=== PATIENT | female | born 1960 | race Caucasian/White ===

== ENCOUNTER 2018-03-05 12:06 | Inpatient (IN) | payer OTHER ==
[2018-03-05 13:37] LABS: Protime INR 1.35
[2018-03-05 13:46] LABS: Absolute Lymphocytes (CBC) 0.6 K/uL (0.7-4.9); Absolute Monocytes 0.4 K/uL (0.1-1.3); Absolute Neutrophil 10.4 K/uL (1.8-8.0); Basophils % 0.3 % (0-1.3); Eosinophils % 0.3 % (0-4.4); Lymphocytes % 4.8 % (15.3-44.8); MCH 29.7 pg (27.0-35.0); MCV 87.6 fL (80-100); MPV 8.4 fL (7.6-11.3); Monocytes % 3.9 % (3.3-12.3); RBC Red Blood Cell Count 4.33 M/uL (3.86-4.86)
[2018-03-05] MEDS ORDERED: ONDANSETRON 4 MG/2 ML VIAL IV PRN (13:48)
[2018-03-05] MEDS ORDERED: ALBUTEROL 2.5 MG/3 ML NEB SOL NEB PRN (13:48)
[2018-03-05] MEDS ORDERED: DIPHENHYDRAMINE 25 MG TAB/CAP PO PRN (13:48)
[2018-03-05] MEDS ORDERED: POLYETHYL GLY 3350 17 GM/DOSE PO PRN (13:49)
[2018-03-05] MEDS ORDERED: ONDANSETRON 4 MG (ODT) TAB PO PRN (13:49)
[2018-03-05] MEDS ORDERED: LOPERAMIDE HCL 2 MG CAPSULE PO PRN (13:51)
[2018-03-05 14:22] LABS: Albumin 4.1 g/dL (3.4-5.0); Bilirubin Direct 0.2 mg/dL (0-0.2); Bilirubin Total 0.7 mg/dL (0.2-1.0); Magnesium 1.8 mg/dL (1.8-2.4); Phosphorus 1.5 mg/dL (2.5-4.9); Potassium 3.8 mmol/L (3.5-5.1)
[2018-03-05 14:31] LABS: Thyroid Stimulating Hormone 6.61 uIU/mL (0.36-3.74)
--- NOTE | 2018-03-05 15:40 | RAD REPORT ---
EXAM DESCRIPTION: CT - Angio Aorta For Dissection - 03/05/2018 3:15 pm CLINICAL HISTORY: Chest pain, weakness, abdominal pain COMPARISON: CT chest PE study April 2014, lumbar spine December 2013. TECHNIQUE: Dynamically enhanced 3 mm thick images of the chest, abdomen, and upper pelvis were obtai ricky during administration of approximately 150mL Isovue 370 IV contrast. Sagittal and coronal reconst ruction images were generated using MIP and reviewed. Exam utilizes a protocol to evaluate entire cou rse of the aorta. All CT scans are performed using dose optimization technique as appropriate and may include automated exposure control or mA/KV adjustment according to patient size. FINDINGS: Aorta is normal in diameter with no dissection or other acute aortic findings. Reconstruct ion images show no significant findings. Patient has scattered aortic atherosclerotic calcification. Pulmonary arteries are normal as well. No cardiomegaly, pericardial thickening or pericardial effusio n. Patient has a moderate-sized right middle lobe pneumonia. There are patchy interstitial and alveolar opacities in each posterior lung base probably areas of infiltrate as well. No worrisome mass of the lung parenchyma. No pleural thickening, pleural effusion or pneumothorax. No abnormal mediastinal or hilar mass or lymphadenopathy seen. No chest wall mass or abnormal axillar y lymphadenopathy. Celiac, SMA and renal arteries show no suspicious findings. Solid abdominal viscera and bowel show no significant findings. Patient has a normal variant left pelvic kidney. Cholecystectomy clips are pr esent. No biliary tree dilatation. No free air, free fluid or inflammatory stranding. No urinary blad umesh abnormality. Uterus and ovaries show no suspicious findings. Patient has a prominent degenerative and scoliotic changes in the spine. Partial compression at T11 d ates back to at least 2014. IMPRESSION: Right middle lobe pneumonia with patchy infiltrates in each posterior lung base. No acute findings of the aorta. Nonacute findings detailed in the body of the report.
[2018-03-05] MEDS: NACHLORIDE 0.45% 1,000 ML IV SCH (16:11)
[2018-03-05] MEDS ORDERED: HYDROCODONE/APAP 7.5/325 MG TAB PO PRN (16:24)
[2018-03-05] MEDS: IPRATROPIUM BROM 0.5MG/2.5ML IH SCH ×2 (16:30→20:17)
[2018-03-05] MEDS: ALBUTEROL 2.5 MG/3 ML NEB SOL NEB SCH ×2 (16:30→20:17)
[2018-03-05] MEDS ORDERED: Levofloxacin500mg IV 500 MG/100 ML BAG IV ONE (17:00)
[2018-03-05 17:23] LABS: Blood Morphology Comment NOT SEEN (NOT SEEN); Platelet Estimate ADEQ; Urine White Blood Cell Casts OK
[2018-03-05] MEDS ORDERED: GLUCAGON 1 MG/VIAL IM PRN (17:48)
[2018-03-05] MEDS ORDERED: D50W 25 GM/50 ML SYRINGE IV PRN (17:48)
[2018-03-05] MEDS: ACETAMINOPHEN 325 MG TABLET PO PRN (19:54)
[2018-03-05 20:40] LABS: Urine Appearance CLEAR; Urine Bilirubin NEGATIVE (NEG); Urine Blood 1+ (NEG); Urine Color YELLOW; Urine Glucose 3+ (NEG); Urine Protein 1+ (NEG); Urine Specific Gravity >=1.030 (1.005-1.030); Urine Urobilinogen 0.2 mg/dL (0.2-1.0); Urine pH 5.5 (5.0-7.0)
[2018-03-05 20:46] LABS: Urine Microscopic Reflex ORDER UMIC
[2018-03-05] MEDS: ULTRAM PO SCH (21:00)
[2018-03-05 21:08] LABS: Urine Bacteria <20 /HPF (<20); Urine Culture Reflex Order NOT NEEDED; Urine RBC <5 /HPF (NONE SEEN); Urine Yeast FEW (NONE SEEN)
[2018-03-05] MEDS: INSULIN -REGULAR HUMAN 50 UNIT/0.5 ML ML SQ SCH (21:17)
[2018-03-05] MEDS: REMERON 15 MG PO SCH (21:18)
[2018-03-05] MEDS: ENOXAPARIN 40 MG/0.4 ML SQ SCH (21:18)
[2018-03-05] MEDS: EFFEXOR 75 MG PO SCH (21:19)
[2018-03-05] MEDS: ATORVASTATIN 10 MG PO SCH (21:20)
[2018-03-05] MEDS ORDERED: TRAMADOL HCL 50 MG TAB PO ONE (22:10)
[2018-03-06] MEDS: IPRATROPIUM BROM 0.5MG/2.5ML IH SCH ×4 (01:27→19:34)
[2018-03-06] MEDS: ALBUTEROL 2.5 MG/3 ML NEB SOL NEB SCH ×5 (01:27→19:34)
[2018-03-06] MEDS: NACHLORIDE 0.45% 1,000 ML IV SCH ×3 (04:07→23:50)
[2018-03-06] MEDS: NORCO 7.5/325 PO PRN ×2 (04:24→15:31)
[2018-03-06 05:24] LABS: Absolute Lymphocytes (CBC) 0.7 K/uL (0.7-4.9); Absolute Monocytes 0.4 K/uL (0.1-1.3); Absolute Neutrophil 8.8 K/uL (1.8-8.0); Basophils % 2.2 % (0-1.3); Eosinophils % 0.2 % (0-4.4); MCH 31.1 pg (27.0-35.0); MCV 86.9 fL (80-100); Monocytes % 4.1 % (3.3-12.3); RBC Red Blood Cell Count 4.02 M/uL (3.86-4.86)
[2018-03-06 05:36] LABS: Magnesium 1.7 mg/dL (1.8-2.4); Potassium 3.2 mmol/L (3.5-5.1)
[2018-03-06 06:06] LABS: Blood Morphology Comment NOT SEEN (NOT SEEN); Platelet Estimate ADEQ; Urine White Blood Cell Casts DIFF
[2018-03-06] MEDS: ULTRAM PO SCH ×2 (08:31→21:36)
[2018-03-06] MEDS: MONTELUKAST 10 MG PO SCH (08:32)
[2018-03-06] MEDS: INSULIN -REGULAR HUMAN 50 UNIT/0.5 ML ML SQ SCH ×4 (08:32→21:00)
[2018-03-06] MEDS: OMEPRAZOLE PO SCH (08:33)
[2018-03-06] MEDS ORDERED: GLUCAGON 1 MG/VIAL IM PRN (10:09)
[2018-03-06] MEDS ORDERED: D50W 25 GM/50 ML SYRINGE IV PRN (10:09)
--- NOTE | 2018-03-06 10:12 | P.PN ---
Subjective Date of Service: 03/06/18 Chief Complaint: WEAK, FATIGUE Subjective: Improving SHE IS FEELING LITTLE BETTER. STILL ACHES ALL OVER. HER SKIN RASH HAS IMPROVED AFTER I STOPPED GLIMEPRIDE THAT HAS SULFA. HER GLUCOSE IS NOT CONTROLLE DON FARSATISHGA Review of Systems 10-point ROS is otherwise unremarkable General: Weakness, Malaise Physical Examination - Vital Signs Temperature: 97.8 F Blood Pressure: 150/89 Pulse: 128 Respirations: 18 Pulse Ox (%): 90 - Physical Exam General: Alert, Moderate distress, Obese, Other (LONGO FACE WITH FRAGILE X SYNRDOME.) HEENT: Atraumatic, PERRLA, EOMI Neck: Supple, JVD not distended Respiratory: Clear to auscultation bilaterally, Normal air movement Cardiovascular: Regular rate/rhythm, Normal S1 S2 Gastrointestinal: Normal bowel sounds, No tenderness Musculoskeletal: No tenderness Integumentary: No rashes Neurological: Normal speech, Normal tone, Normal affect Lymphatics: No axilla or inguinal lymphadenopathy - Studies Laboratory Data (last 24 hrs) 03/06/18 04:56: Sodium 133 L, Potassium 3.2 L, BUN 12, Creatinine 1.30, Glucose 161 H, Magnesium 1.7 L 03/06/18 04:56: WBC 10.2, Hgb 12.5, Hct 35.0 L, Plt Count 199 03/05/18 13:19: Sodium 130 L, Potassium 3.8, BUN 10, Creatinine 1.50 H, Glucose 433 H*, Phosphorus 1.5 L, Magnesium 1.8, Total Bilirubin 0.7, AST 17, ALT 23, Alkaline Phosphatase 130 H, Amylase 20 L, Lipase 38 L 03/05/18 13:19: PT 16.0 H, INR 1.35, APTT 27.8 03/05/18 13:19: WBC 11.4 H, Hgb 12.9, Hct 38.0, Plt Count 200 Medications List Reviewed: Yes Assessment And Plan - Current Problems (Diagnosis) (1) Bacterial pneumonia Current Visit: Yes Status: Acute Plan: NOT READY TO GO HOME YET VERY SYMPTOMATIC RESUME CARE. Orders (last 24 hrs) 03/05/18 12:53 Daily Weight 0500 Sequential Compression Device NOW Oxygen Nasal Cannula 2 lpm Pulse Oximetry (RT) CONT 03/05/18 13:19 Vitamin D,1,25 Dihydroxy Routine Blood Culture Stat 03/05/18 13:48 Acetaminophen [Tylenol -Tablet] 650 mg PO Q6HP PRN Albuterol Neb [Proventil 0.083% Neb Soln] 2.5 mg NEB Q2HP PRN Diphenhydramine [Benadryl Tab/Cap] 25 mg PO BEDTIME PRN PRN Ondansetron [Zofran] 4 mg IV Q6HP PRN 03/05/18 13:49 Ondansetron [Zofran] 4 mg PO Q6HP PRN Polyethyl Gly 3350 [Glycolax] 17 gm PO BEDTIME PRN PRN 03/05/18 13:51 Loperamide [Imodium] 4 mg PO Q4HP PRN 03/05/18 14:00 Albuterol Neb [Proventil 0.083% Neb Soln] 2.5 mg NEB [id number] Ipratropium Neb [Atrovent Neb] 0.5 mg IH [id number] 03/05/18 16:21 Sliding Scale [Glucose Monitoring] [facility] 03/05/18 17:44 SBAR Routine 03/05/18 17:48 D50w (25 gm/50 ml) Syr [Dextrose 50% SYRINGE] 12.5 gm IV PRN PRN Glucagon [Glucagen] 1 mg IM 1X PRN 03/05/18 19:00 Home Med 1 ea PO TID PRN 03/05/18 21:00 Enoxaparin Sodium [Lovenox 40 MG INJ] 40 mg SQ 2100 Home Med 0 ea PO BEDTIME Home Med 0 ea PO BEDTIME Home Med 0 ea PO BEDTIME Home Med 50 ea PO BID Insulin -Regular Human [Novolin -R] See Protocol SQ [facility] 03/06/18 06:00 Home Med 0 ea PO [id number] 03/06/18 07:27 EKG Electrocardiogram [EKG] Routine 03/06/18 09:00 Home Med 0 ea PO DAILY Omeprazole [Prilosec] 0 mg PO DAILY 03/06/18 10:09 D50w (25 gm/50 ml) Syr [Dextrose 50% SYRINGE] 12.5 gm IV PRN PRN Glucagon [Glucagen] 1 mg IM 1X PRN 03/06/18 11:00 Nachloride 0.45% [Sodium Chloride 0.45%] 1,000 ml IV 50 mls/hr 03/06/18 17:00 Levofloxacin 250mg IV [Levaquin 250MG/50 mL IVPB] 250 mg in 50 ml IV 1700 03/06/18 21:00 Insulin Glargine Human [Lantus] 10 units SQ BEDTIME 03/06/18 Breakfast AHA [Heart Healthy] [DIET] 03/07/18 05:00 Basic Metabolic Panel DAILY CBC with Automated Diff DAILY Magnesium DAILY 03/08/18 05:00 Basic Metabolic Panel DAILY CBC with Automated Diff DAILY Magnesium DAILY 03/09/18 05:00 Basic Metabolic Panel DAILY CBC with Automated Diff DAILY Magnesium DAILY 03/10/18 05:00 Basic Metabolic Panel DAILY CBC with Automated Diff DAILY Magnesium DAILY 03/11/18 05:00 Basic Metabolic Panel DAILY CBC with Automated Diff DAILY Magnesium DAILY 03/12/18 05:00 Basic Metabolic Panel DAILY CBC with Automated Diff DAILY Magnesium DAILY 03/13/18 05:00 Basic Metabolic Panel DAILY CBC with Automated Diff DAILY Magnesium DAILY 03/14/18 05:00 Basic Metabolic Panel DAILY CBC with Automated Diff DAILY Magnesium DAILY 03/15/18 05:00 Basic Metabolic Panel DAILY CBC with Automated Diff DAILY Magnesium DAILY (2) Diabetes Current Visit: Yes Status: Acute Plan: START LANTUS ORAL MEDS HAVE NOT WORKED. Qualifiers: Diabetes mellitus type: type 2 (3) Fragile X syndrome Current Visit: Yes Status: Chronic Plan: REDUCES LIFE SPAN WITH DEBILITY (4) Cognitive disorder Current Visit: Yes Status: Chronic Plan: PLEASANT MODERATE COGNITIVE DISORDER FROM FRAGILE X
[2018-03-06 14:48] VITALS: BMI 26.3
[2018-03-06] MEDS: Levofloxacin 250mg IV 250 MG/50 ML BAG IV SCH (17:51)
[2018-03-06] MEDS: INSULIN GLARGINE 100 UNITS/ML SQ SCH (21:36)
[2018-03-06] MEDS: EFFEXOR 75 MG PO SCH (21:37)
[2018-03-06] MEDS: ATORVASTATIN 10 MG PO SCH (21:37)
[2018-03-06] MEDS: REMERON 15 MG PO SCH (21:38)
[2018-03-06] MEDS: ENOXAPARIN 40 MG/0.4 ML SQ SCH (21:39)
[2018-03-07] MEDS: ALBUTEROL 2.5 MG/3 ML NEB SOL NEB SCH ×4 (01:33→19:24)
[2018-03-07] MEDS: IPRATROPIUM BROM 0.5MG/2.5ML IH SCH ×4 (01:33→19:24)
[2018-03-07] MEDS: NORCO 7.5/325 PO PRN ×2 (04:45→12:42)
[2018-03-07 05:28] LABS: Absolute Lymphocytes (CBC) 1.3 K/uL (0.7-4.9); Absolute Monocytes 0.7 K/uL (0.1-1.3); Absolute Neutrophil 7.3 K/uL (1.8-8.0); Basophils % 0.4 % (0-1.3); Eosinophils % 1.1 % (0-4.4); Hematocrit 34.3 % (36.0-45.0); Lymphocytes % 13.5 % (15.3-44.8); MCH 30.4 pg (27.0-35.0); MCV 88.8 fL (80-100); MPV 8.4 fL (7.6-11.3); Monocytes % 7.5 % (3.3-12.3); RBC Red Blood Cell Count 3.86 M/uL (3.86-4.86)
[2018-03-07 05:38] LABS: Magnesium 1.9 mg/dL (1.8-2.4); Potassium 3.9 mmol/L (3.5-5.1)
[2018-03-07 06:32] LABS: Blood Morphology Comment NOTED (NOT SEEN); Platelet Estimate ADEQ
[2018-03-07] MEDS: NACHLORIDE 0.45% 1,000 ML IV SCH ×3 (07:00→15:11)
--- NOTE | 2018-03-07 07:46 | EKG ---
Test Date: 2018-03-06 Test Time: 17:30:32 Boiler Out: CHAR MEASUREMENT RESULTS: Intervals: Rate: 111 NE: 154 QRSD: 66 QT: 342 QTc: 465 [place]: P: 46 NE: 154 QRS: 83 T: 34 INTERPRETIVE STATEMENTS: Sinus tachycardia Otherwise normal ECG Compared to ECG 12/22/2012 14:31:56 Right-axis deviation no longer present ST (T wave) deviation no longer present Electronically Signed On 03-07-18 07:45:15 CDT by Hugo Tucker
[2018-03-07] MEDS: INSULIN -REGULAR HUMAN 50 UNIT/0.5 ML ML SQ SCH ×4 (08:33→21:00)
[2018-03-07] MEDS: MONTELUKAST 10 MG PO SCH (08:36)
[2018-03-07] MEDS: OMEPRAZOLE PO SCH (08:39)
[2018-03-07] MEDS: ULTRAM PO SCH ×2 (08:40→20:38)
--- NOTE | 2018-03-07 10:43 | RAD REPORT ---
EXAM DESCRIPTION: US - Abdomen Exam Complete - 03/07/2018 10:02 am CLINICAL HISTORY: Abdominal pain COMPARISON: CT March 05, 2018 CT May 2008 FINDINGS: Gallbladder is absent. No mass or abnormal fluid collection in the gallbladder fossa. Comm on bile duct is normal with no common duct stone identified. Liver shows fatty infiltration pattern w ith scattered areas of spared parenchyma. No focal or suspicious liver lesion identifiable. No spleni c abnormality seen. The pancreas is obscured. No hydronephrosis or suspicious mass in the left kidney. Patient has a known left pelvic kidney. Karthikeyan l gas obscures sonographic assessment of the left kidney. Aorta and IVC are partially obscured. No ascites or bulky lymphadenopathy. Exam was limited by motion and patient limited ability to cooperate. IMPRESSION: Status post cholecystectomy with no biliary tree dilatation. Fatty infiltration of the liver. Pancreas, aorta, IVC and left pelvic kidney too obscured for assessment.
--- NOTE | 2018-03-07 12:00 | P.PN ---
Subjective Date of Service: 03/07/18 Chief Complaint: WEAK, FATIGUE Subjective: Improving (hungry) SHE IS FEELING LITTLE BETTER. STILL ACHES ALL OVER. HER SKIN RASH HAS IMPROVED AFTER I STOPPED GLIMEPRIDE THAT HAS SULFA. HER GLUCOSE IS NOT CONTROLLE DON FARCHAKA Review of Systems 10-point ROS is otherwise unremarkable General: Weakness, Malaise Physical Examination - Vital Signs Temperature: 97.8 F Blood Pressure: 130/86 Pulse: 112 Respirations: 12 Pulse Ox (%): 93 - Physical Exam General: Alert, In no apparent distress, Mild distress (LOT BETTER THAN YESTT), Obese HEENT: Atraumatic, PERRLA, EOMI Neck: Supple, JVD not distended Respiratory: Clear to auscultation bilaterally, Normal air movement Cardiovascular: Regular rate/rhythm, Normal S1 S2 Gastrointestinal: Normal bowel sounds, No tenderness Musculoskeletal: No tenderness Integumentary: No rashes Neurological: Normal speech, Other (COGNITIVE LOW FUNCTION FROM ) Lymphatics: No axilla or inguinal lymphadenopathy - Studies Laboratory Data (last 24 hrs) 03/07/18 04:30: Sodium 134 L, Potassium 3.9, BUN 29 H, Creatinine 2.60 H D, Glucose 172 H, Magnesium 1.9 03/07/18 04:30: WBC 9.4, Hgb 11.7 L, Hct 34.3 L, Plt Count 215 Medications List Reviewed: Yes Assessment And Plan - Current Problems (Diagnosis) (1) Bacterial pneumonia Current Visit: Yes Status: Acute Plan: NOT READY TO GO HOME YET VERY SYMPTOMATIC RESUME CARE. Orders (last 24 hrs) 03/05/18 12:53 Daily Weight 0500 Sequential Compression Device NOW Oxygen Nasal Cannula 2 lpm Pulse Oximetry (RT) CONT 03/05/18 13:19 Vitamin D,1,25 Dihydroxy Routine Blood Culture Stat 03/05/18 13:48 Acetaminophen [Tylenol -Tablet] 650 mg PO Q6HP PRN Albuterol Neb [Proventil 0.083% Neb Soln] 2.5 mg NEB Q2HP PRN Diphenhydramine [Benadryl Tab/Cap] 25 mg PO BEDTIME PRN PRN Ondansetron [Zofran] 4 mg IV Q6HP PRN 03/05/18 13:49 Ondansetron [Zofran] 4 mg PO Q6HP PRN Polyethyl Gly 3350 [Glycolax] 17 gm PO BEDTIME PRN PRN 03/05/18 13:51 Loperamide [Imodium] 4 mg PO Q4HP PRN 03/05/18 14:00 Albuterol Neb [Proventil 0.083% Neb Soln] 2.5 mg NEB [id number] Ipratropium Neb [Atrovent Neb] 0.5 mg IH [id number] 03/05/18 16:21 Sliding Scale [Glucose Monitoring] [facility] 03/05/18 17:44 SBAR Routine 03/05/18 17:48 D50w (25 gm/50 ml) Syr [Dextrose 50% SYRINGE] 12.5 gm IV PRN PRN Glucagon [Glucagen] 1 mg IM 1X PRN 03/05/18 19:00 Home Med 1 ea PO TID PRN 03/05/18 21:00 Enoxaparin Sodium [Lovenox 40 MG INJ] 40 mg SQ 2100 Home Med 0 ea PO BEDTIME Home Med 0 ea PO BEDTIME Home Med 0 ea PO BEDTIME Home Med 50 ea PO BID Insulin -Regular Human [Novolin -R] See Protocol SQ [facility] 03/06/18 06:00 Home Med 0 ea PO [id number] 03/06/18 07:27 EKG Electrocardiogram [EKG] Routine 03/06/18 09:00 Home Med 0 ea PO DAILY Omeprazole [Prilosec] 0 mg PO DAILY 03/06/18 10:09 D50w (25 gm/50 ml) Syr [Dextrose 50% SYRINGE] 12.5 gm IV PRN PRN Glucagon [Glucagen] 1 mg IM 1X PRN 03/06/18 11:00 Nachloride 0.45% [Sodium Chloride 0.45%] 1,000 ml IV 50 mls/hr 03/06/18 17:00 Levofloxacin 250mg IV [Levaquin 250MG/50 mL IVPB] 250 mg in 50 ml IV 1700 03/06/18 21:00 Insulin Glargine Human [Lantus] 10 units SQ BEDTIME 03/06/18 Breakfast AHA [Heart Healthy] [DIET] 03/07/18 05:00 Basic Metabolic Panel DAILY CBC with Automated Diff DAILY Magnesium DAILY 03/08/18 05:00 Basic Metabolic Panel DAILY CBC with Automated Diff DAILY Magnesium DAILY 03/09/18 05:00 Basic Metabolic Panel DAILY CBC with Automated Diff DAILY Magnesium DAILY 03/10/18 05:00 Basic Metabolic Panel DAILY CBC with Automated Diff DAILY Magnesium DAILY 03/11/18 05:00 Basic Metabolic Panel DAILY CBC with Automated Diff DAILY Magnesium DAILY 03/12/18 05:00 Basic Metabolic Panel DAILY CBC with Automated Diff DAILY Magnesium DAILY 03/13/18 05:00 Basic Metabolic Panel DAILY CBC with Automated Diff DAILY Magnesium DAILY 03/14/18 05:00 Basic Metabolic Panel DAILY CBC with Automated Diff DAILY Magnesium DAILY 03/15/18 05:00 Basic Metabolic Panel DAILY CBC with Automated Diff DAILY Magnesium DAILY CLINICALLY BETTER. RESUMEE MEDS (2) Diabetes Current Visit: Yes Status: Acute Plan: START LANTUS ORAL MEDS HAVE NOT WORKED. Qualifiers: Diabetes mellitus type: type 2 (3) Fragile X syndrome Current Visit: Yes Status: Chronic Plan: REDUCES LIFE SPAN WITH DEBILITY (4) Cognitive disorder Current Visit: Yes Status: Chronic Plan: PLEASANT MODERATE COGNITIVE DISORDER FROM FRAGILE X (5) ARF (acute renal failure) Current Visit: Yes Status: Acute Plan: POSSIBLE PRERENAL IV FLUIDS SONOGRAM NEG LAB DAILY. DISCUSSED WITH SISTER ABOUT HER POOR ABILITY TO IMPROVE WITH FRAGILE X SYNDROME SHE MAY IMPROVE WITH FLUIDS NO SIGNS OF ATN, AGN OR LOW BP.
[2018-03-07] MEDS: NICOTINE 7 MG/PAT TD SCH (13:12)
--- NOTE | 2018-03-07 14:45 | RAD REPORT ---
EXAM DESCRIPTION: US - Urinary Bladder - 03/07/2018 2:23 pm CLINICAL HISTORY: Urinary retention COMPARISON: CT study March 05 FINDINGS: No focal mass or bladder wall thickening. Prevoid volume 242 milliliters. Postvoid volume 111 milliliters.
[2018-03-07] MEDS: Levofloxacin 250mg IV 250 MG/50 ML BAG IV SCH (17:52)
[2018-03-07] MEDS: ATORVASTATIN 10 MG PO SCH (20:37)
[2018-03-07] MEDS: EFFEXOR 75 MG PO SCH (20:37)
[2018-03-07] MEDS: REMERON 15 MG PO SCH (20:37)
[2018-03-07] MEDS ORDERED: ENOXAPARIN 30 MG/0.3 ML SQ SCH (21:00)
[2018-03-07] MEDS: INSULIN GLARGINE 100 UNITS/ML SQ SCH (21:13)
[2018-03-08] MEDS: NACHLORIDE 0.45% 1,000 ML IV SCH ×2 (00:19→09:25)
[2018-03-08] MEDS: IPRATROPIUM BROM 0.5MG/2.5ML IH SCH ×2 (01:24→07:31)
[2018-03-08] MEDS: ALBUTEROL 2.5 MG/3 ML NEB SOL NEB SCH ×2 (01:24→07:31)
[2018-03-08] MEDS: NORCO 7.5/325 PO PRN (04:26)
[2018-03-08 05:14] LABS: Absolute Lymphocytes (CBC) 0.9 K/uL (0.7-4.9); Absolute Monocytes 0.4 K/uL (0.1-1.3); Absolute Neutrophil 3.2 K/uL (1.8-8.0); Basophils % 0.4 % (0-1.3); Eosinophils % 2.5 % (0-4.4); Lymphocytes % 19.6 % (15.3-44.8); MCH 30.4 pg (27.0-35.0); MCV 87.2 fL (80-100); MPV 7.9 fL (7.6-11.3); Monocytes % 7.9 % (3.3-12.3); RBC Red Blood Cell Count 3.43 M/uL (3.86-4.86)
[2018-03-08 05:26] LABS: Magnesium 1.9 mg/dL (1.8-2.4); Potassium 3.6 mmol/L (3.5-5.1)
[2018-03-08] MEDS: INSULIN -REGULAR HUMAN 50 UNIT/0.5 ML ML SQ SCH ×2 (07:30→11:40)
[2018-03-08 08:59] VITALS: O2SAT 90
[2018-03-08] MEDS: OMEPRAZOLE PO SCH (09:00)
[2018-03-08] MEDS: ULTRAM PO SCH (09:00)
[2018-03-08] MEDS: MONTELUKAST 10 MG PO SCH (09:26)
[2018-03-08] MEDS: NICOTINE 7 MG/PAT TD SCH (09:27)
[2018-03-08 12:22] VITALS: BP 112/58; TEMP 97.6
[2018-03-08] MEDS: ACETAMINOPHEN 325 MG TABLET PO PRN (14:17)
--- NOTE | 2018-03-08 17:52 | P.DS ---
Admission Date: 03/07/18 Discharge Date: 03/08/18 Disposition: ROUTINE DISCHARGE Discharge Condition: FAIR Reason for Admission: WEAK, FATIGUE - Problems (1) Bacterial pneumonia Onset Date: 03/08/18 Status: Acute (2) Diabetes Onset Date: 03/08/18 Status: Acute Qualifiers: Diabetes mellitus type: type 2 (3) Fragile X syndrome Onset Date: 03/08/18 Status: Chronic (4) Cognitive disorder Onset Date: 03/08/18 Status: Chronic (5) ARF (acute renal failure) Onset Date: 03/08/18 Status: Acute Hospital Course: MS CRAVEN COMES WITH DYSPNEA, WEAKNESS, HYPERGLYCEMIA AND WAS FOUND TO HAVE MID LOBE PNEUMONIA ON RIGHT SIDE. SHE IMPROVED CLINICALLY ON LEVAQUIN. SHE DEVELOPED ACUTE RENAL FAILURE BUT IMPROVED WITH IV FLUIDS. SHE IS STABLE FOR DC. Vital Signs/Physical Exam: Temp Pulse Resp BP Pulse Ox 97.6 F 99 H 18 112/58 L 94 03/08/18 12:00 03/08/18 12:00 03/08/18 12:00 03/08/18 12:00 03/08/18 12:00 Laboratory Data at Discharge: WBC 4.5 K/uL (4.3-10.9) D 03/08/18 04:35 Hgb 10.4 g/dL (12.0-15.0) L 03/08/18 04:35 Hct 30.0 % (36.0-45.0) L 03/08/18 04:35 Plt Count 185 K/uL (152-406) 03/08/18 04:35 PT 16.0 SECONDS (9.5-12.5) H 03/05/18 13:19 INR 1.35 03/05/18 13:19 APTT 27.8 SECONDS (24.3-36.9) 03/05/18 13:19 Sodium 137 mmol/L (136-145) 03/08/18 04:35 Potassium 3.6 mmol/L (3.5-5.1) 03/08/18 04:35 BUN 23 mg/dL (7-18) H 03/08/18 04:35 Creatinine 1.20 mg/dL (0.55-1.3) D 03/08/18 04:35 Glucose 80 mg/dL (74-106) 03/08/18 04:35 Phosphorus 1.5 mg/dL (2.5-4.9) L 03/05/18 13:19 Magnesium 1.9 mg/dL (1.8-2.4) 03/08/18 04:35 Total Bilirubin 0.7 mg/dL (0.2-1.0) 03/05/18 13:19 AST 17 U/L (15-37) 03/05/18 13:19 ALT 23 U/L (12-78) 03/05/18 13:19 Alkaline Phosphatase 130 U/L (45-117) H 03/05/18 13:19 Amylase 20 U/L (25-115) L 03/05/18 13:19 Lipase 38 U/L (73-393) L 03/05/18 13:19 Home Medications: Mirtazapine [Remeron] 15 mg PO BEDTIME 02/25/12 Omeprazole [Prilosec] 40 mg PO DAILY 02/25/12 Venlafaxine HCl [Effexor Xr] 75 mg PO BEDTIME 02/25/12 Atorvastatin Calcium [Lipitor] 10 mg PO BEDTIME 03/05/18 Dapagliflozin Propanediol [Farxiga] 5 mg PO DAILY 03/05/18 Hydrocodone 7.5/APAP 325 [[place] 7.5/325 mg*] 1 tab PO TID PRN 03/05/18 Levothyroxine Sodium 1 tab PO DAILY 03/05/18 Montelukast [Singulair*] 1 tab PO DAILY 03/05/18 Tramadol HCl [Ultram] 1 tab PO BID 03/05/18 Insulin Glargine Human [Lantus*] 15 units SQ BEDTIME #15 ml 03/08/18 levoFLOXacin [Levaquin*] 250 mg PO DAILY #10 tab 03/08/18 New Medications: Insulin Glargine Human [Lantus*] 15 units SQ BEDTIME #15 ml levoFLOXacin [Levaquin*] 250 mg PO DAILY #10 tab Followup: Shad Brown MD [Primary Care Provider] -
[2018-03-08 18:58] LABS: Vitamin D 1,25-Dihydroxy Total 32 pg/mL (18-72); Vitamin D,1,25-OH2, D2 <8 pg/mL
== END 2018-03-08 14:22 | disposition home or self-care (01) | DRG 194 ==
LOC: 2ND 12:29 → OBSVTOIN 03-07 12:43
PROVIDERS: ADMIT Internal Medicine; ATTEND Internal Medicine
DX: J15.9 Unspecified bacterial pneumonia (principal); N17.9 Acute kidney failure, unspecified; E11.65 Type 2 diabetes mellitus with hyperglycemia; Z79.84 Long term (current) use of oral hypoglycemic drugs; Q99.2 Fragile X chromosome; F09 Unspecified mental disorder due to known physiological condition; R53.81 Other malaise; R21 Rash and other nonspecific skin eruption; E86.0 Dehydration
CPT/HCPCS: 36415; 71275; 74175; 76700; 76857; 80048; 80076; 81003; 81015; 82150; 82607; 82652; 82962; 83690; 83735; 84100; 84439; 84443; 85025; 85379; 85610; 85730; 87040; 93005; 94640; 94660; 94760; G0378; G0379; J1650; Q9967

== ENCOUNTER 2018-04-02 12:24 | Emergency (ER) | payer OTHER ==
[2018-04-02 13:36] LABS: Absolute Lymphocytes (CBC) 1.7 K/uL (0.7-4.9); Absolute Monocytes 0.4 K/uL (0.1-1.3); Absolute Neutrophil 4.4 K/uL (1.8-8.0); Basophils % 0.6 % (0-1.3); Eosinophils % 1.5 % (0-4.4); Hematocrit 36.8 % (36.0-45.0); Lymphocytes % 26.1 % (15.3-44.8); MCH 30.1 pg (27.0-35.0); MCV 87.3 fL (80-100); MPV 7.4 fL (7.6-11.3); Monocytes % 5.3 % (3.3-12.3); RBC Red Blood Cell Count 4.21 M/uL (3.86-4.86)
[2018-04-02] MEDS ORDERED: NA CHLORIDE 0.9% 1,000 ML ONE (13:42)
[2018-04-02 13:53] LABS: Protime INR 1.02
[2018-04-02 14:04] LABS: ALT/SGPT 25 U/L (12-78); AST/SGOT 18 U/L (15-37); Albumin 4.2 g/dL (3.4-5.0); Alkaline Phosphatase 80 U/L (45-117); BUN Blood Urea Nitrogen 24 mg/dL (7-18); Bicarbonate 32 mmol/L (21-32); Bilirubin Direct < 0.1 mg/dL (0-0.2); Bilirubin Total 0.2 mg/dL (0.2-1.0); CKMB Creatine Kinase MB 1.1 ng/mL (0.3-3.6); Creatine Phosphokinase 28 U/L (26-192); Glucose Level 207 mg/dL (74-106); Magnesium 1.9 mg/dL (1.8-2.4); NT PRO-BNP 55 pg/mL (<125); Potassium 3.9 mmol/L (3.5-5.1); Protein, Total 7.6 g/dL (6.4-8.2); Sodium Level 141 mmol/L (136-145); Troponin (Emerg Dept Use Only) < 0.02 ng/mL (0.0-0.045)
[2018-04-02 14:49] LABS: Urine Bacteria <20 /HPF (<20); Urine Culture Reflex Order REFLEXED
--- NOTE | 2018-04-02 15:02 | RAD REPORT ---
EXAM DESCRIPTION: RAD - Chest Single View - 04/02/2018 1:52 pm CLINICAL HISTORY: Cough and congestion COMPARISON: April 2014 TECHNIQUE: AP portable chest image was obtained 1343 hour . FINDINGS: Inspiratory effort is shallow compared to the prior study. Interstitial markings are promi nent, increased over the baseline even when adjusting for shallow inspiration. No peripheral mass or consolidation. Upper vasculature not outside of normal range. Heart size is increased slightly from t he comparison. Trachea is midline. No measurable pleural effusion and no pneumothorax. No gross bony abnormality seen. No acute aortic findings suspected. IMPRESSION: Heart size is increased slightly and interstitial markings are prominent. Lung markings have increased since the prior study, more notably in the right base. Right base interstitial pneumonia is favored over interstitial edema from failure or volume overload.
[2018-04-02 15:46] LABS: Urine Blood 1+ (NEG); Urine Glucose 2+ (NEG); Urine Protein NEGATIVE (NEG); Urine Specific Gravity 1.015 (1.005-1.030); Urine pH 5.5 (5.0-7.0)
[2018-04-02] MEDS ORDERED: CEFTRIAXONE/SWI 1gm 1 GM/10 ML SYR ONE (15:58)
[2018-04-02] MEDS ORDERED: levoFLOXacin 500 MG TAB ONE (15:58)
--- NOTE | 2018-04-02 16:33 | RAD REPORT ---
EXAM DESCRIPTION: CT - Thorax Wo Con - 04/02/2018 4:11 pm CLINICAL HISTORY: CT chest COMPARISON: February 2017 TECHNIQUE: Computed axial tomography of the chest was obtained. Contrast was not requested. All CT scans are performed using dose optimization technique as appropriate and may include automated exposure control or mA/KV adjustment according to patient size. FINDINGS: The evaluation of mediastinum, kristofer and vessels is limited secondary to lack of IV contras t administration. Mild to moderate patchy right middle and right lower lobe opacities have partially resolved since the prior exam An 11 millimeter opacity has developed within the posterior left lower lobe No significant mediastinal or hilar lymphadenopathy is seen. A pleural effusion is not present. A pericardial effusion is not present IMPRESSION: Mild to moderate patchy right lung opacities have partially resolved compatible with imp roving pneumonia 11 millimeter left lower lobe opacity probably represents pneumonia. As a mass however has a similar appearance it is recommended that the patient have a CT chest in 3 months to assess stability/resolut ion. The right lung opacities can also be reassessed to help exclude a post obstructive process
--- NOTE | 2018-04-02 16:44 | ER ---
Nurse's Notes [facility] Name: Latisha Hernandez Age: 58 yrs Sex: Female : 1960 Arrival Date: 04/02/2018 Time: 12:27 Bed 7 Private MD: Shad Brown V Diagnosis: Type 1 diabetes mellitus;Cystitis;Other pneumonia, unspecified organism;Unspecified kidney failure Presentation: 04/02 12:46 Presenting complaint: Patient states: My blood surgars have been high, even though I ch have been taking my insulin. Transition of care: patient was not received from another setting of care. Onset of symptoms was March 26, 2018. Risk Assessment: Do you want to hurt yourself or someone else? Patient reports no desire to harm self or others. Initial Sepsis Screen: Does the patient meet any 2 criteria? No. Patient's initial sepsis screen is negative. Does the patient have a suspected source of infection? No. Patient's initial sepsis screen is negative. Care prior to arrival: None. 12:46 Method Of Arrival: Ambulatory 12:46 Acuity: ANGEL 4 ch Triage Assessment: 12:54 General: Appears in no apparent distress. comfortable, Behavior is calm, cooperative, ch appropriate for age. Pain: Denies pain. Neuro: No deficits noted. Cardiovascular: No deficits noted. GI: No signs and/or symptoms were reported involving the gastrointestinal system. Abdomen is round non-distended, Bowel sounds present X 4 quads. Historical: - Allergies: 12:54 Morphine; "crazy"; ch 12:54 PENICILLINS; ch - Home Meds: 12:54 atorvastatin 10 mg oral tab 1 tab once daily [Active]; Farxiga 5 mg oral tab 1 tab once ch daily [Active]; Humalog 100 unit/mL Sub-Q crtg [Active]; hydroxyzine HCl 25 mg Oral tab 1 tab as needed [Active]; Lantus 20 U Sub-Q soln daily [Active]; levothyroxine 50 mcg tab 1 tab once daily [Active]; mirtazapine 15 mg Oral TbDL 1 tab once daily [Active]; montelukast 10 mg oral tab 1 tab once daily [Active]; Nasonex 50 mcg/actuation Nasal spry 2 sprays once daily [Active]; omeprazole 40 mg Oral cpDR 1 cap once daily [Active]; promethazine 25 mg Oral tab 1 tab once daily [Active]; Triamcinolone Acetonide Topical [Active]; venlafaxine 37.5 mg oral cp24 1 cap once daily [Active]; O2 at 2L [Active]; - PMHx: 12:54 Diabetes - IDDM; COPD; Hypothyroidism; GERD; Hypertension; seasonal allergies; ch - PSHx: 12:54 Cholecystectomy; Tubal ligation; ch - Immunization history:: Adult Immunizations up to date. - Social history:: Smoking status: Patient/guardian denies using tobacco, Patient uses e cig. - Ebola Screening: : Patient negative for fever greater than or equal to 101.5 degrees Fahrenheit, and additional compatible Ebola Virus Disease symptoms Patient denies exposure to infectious person Patient denies travel to an Ebola-affected area in the 21 days before illness onset No symptoms or risks identified at this time. - Family history:: pertinent for. Screenin:56 Abuse screen: Denies threats or abuse. Denies injuries from another. Nutritional screening: No deficits noted. Tuberculosis screening: No symptoms or risk factors identified. Fall Risk None identified. Assessment: 12:56 Reassessment: Patient appears in no apparent distress at this time. No changes from previously documented assessment. Patient and/or family updated on plan of care and expected duration. Pain level reassessed. Patient is alert, oriented x 3, equal unlabored respirations, skin warm/dry/pink. 13:33 Reassessment: Patient appears in no apparent distress at this time. No changes from previously documented assessment. Patient and/or family updated on plan of care and expected duration. Pain level reassessed. Patient is alert, oriented x 3, equal unlabored respirations, skin warm/dry/pink. 15:44 Reassessment: Patient appears in no apparent distress at this time. Patient and/or family updated on plan of care and expected duration. Pain level reassessed. Patient is alert, oriented x 3, equal unlabored respirations, skin warm/dry/pink. Patient states feeling better. Patient states symptoms have improved. General: Appears in no apparent distress. comfortable, Behavior is calm, cooperative, appropriate for age. Pain: Denies pain. Neuro: No deficits noted. Cardiovascular: Denies chest pain, shortness of breath. Respiratory: Airway is patent Trachea midline Respiratory effort is even, unlabored. GI: No signs and/or symptoms were reported involving the gastrointestinal system. 17:00 Reassessment: Patient appears in no apparent distress at this time. Patient and/or ch family updated on plan of care and expected duration. Pain level reassessed. Patient is alert, oriented x 3, equal unlabored respirations, skin warm/dry/pink. Patient states feeling better. Patient states symptoms have improved. Vital Signs: 12:54 BP 142 / 67; Pulse 89; Resp 22; Temp 97.4; Pulse Ox 99% on 2 lpm NC; Weight 61.23 kg; ch Height 4 ft. 11 in. (149.86 cm); Pain 0/10; 13:33 BP 116 / 67; Pulse 96; Resp 20; Temp 97.8; Pulse Ox 99% on 2 lpm NC; Pain 0/10; ch 15:44 BP 111 / 73; Pulse 68; Resp 22; Pulse Ox 98% on 2 lpm NC; Pain 0/10; ch 17:00 BP 126 / 76; Pulse 72; Resp 24; Temp 99.1; Pulse Ox 98% on R/A; Pain 0/10; ch 12:54 Body Mass Index 27.27 (61.23 kg, 149.86 cm) ED Course: 12:27 Patient arrived in ED. mr 12:28 Shad Brown MD is Private Physician. mr 12:45 Silvano Fernandez MD is Attending Physician. [facility] 12:46 Africa Cowan, RN is Primary Nurse. 12:47 Triage completed. 12:54 Arm band placed on left wrist. Patient placed in an exam room, on a stretcher, on oxygen, on pulse oximetry. 12:56 Patient has correct armband on for positive identification. Placed in gown. Bed in low ch position. Call light in reach. Side rails up X 1. Adult w/ patient. 12:56 No provider procedures requiring assistance completed. ch 13:33 No apparent distress. Resting quietly. ch 13:33 Pulse ox on. NIBP on. ch 13:33 Inserted saline lock: 20 gauge in right forearm, using aseptic technique. Blood collected. 13:35 First set of blood cultures drawn by az. jl7 13:50 Second set of blood cultures drawn. jl7 13:59 EKG done, by technology advisor. reviewed by Silvano Fernandez MD. sm3 14:04 Primary Nurse role handed off by Africa Cowan, CAROL 14:11 Chest Single View In Process Unspecified. EDMS 15:44 Africa Cowan, RN is Primary Nurse. ch 16:11 CT Chest Wo Con In Process Unspecified. EDMS 16:44 Shad Brown MD is Referral Physician. hector 17:10 IV discontinued, intact, bleeding controlled, No redness/swelling at site. Pressure ch dressing applied. Administered Medications: 13:35 Drug: NS 0.9% 1000 ml Route: IV; Rate: 1 bolus; Site: right forearm; 16:02 Follow up: IV Status: Completed infusion; IV Intake: 1000ml 15:46 Not Given (wrong order): Rocephin - (cefTRIAXone) 1 grams IVPB once over 30 mins; (mix ch in 50 mL NS) 16:01 Drug: LevOfloxacin 500 mg Route: PO; 16:37 Follow up: Response: No adverse reaction 16:01 Drug: Rocephin 1 grams Route: IV; Rate: calculated rate; Site: right forearm; Point of Care Testing: Blood Glucose: 12:54 Blood Glucose: 238 mg/dL; ch Ranges: Intake: 16:02 IV: 1000ml; Total: 1000ml. Outcome: 16:44 Discharge ordered by . hector 17:10 Discharged to home via wheelchair, with family. ch 17:10 Condition: stable 17:10 Discharge instructions given to patient, family, Instructed on discharge instructions, follow up and referral plans. medication usage, Demonstrated understanding of instructions, follow-up care, medications, Prescriptions given X 1. 17:15 Patient left the ED. Signatures: Dispatcher [employer] EDPA Africa Cowan, RN RN Silvano Crandall MD MD cha Rivera, Maria mr Leal, Jahala, RN RN Jenny Hale 3
--- NOTE | 2018-04-02 16:45 | EDPHYS ---
Physician Documentation [facility] Name: Latisha Hernandez Age: 58 yrs Sex: Female : 1960 Arrival Date: 04/02/2018 Time: 12:27 Bed 7 Private MD: Shad Brown V ED Physician Silvano Fernandez HPI: 04/02 14:19 This 58 yrs old Female presents to ER via Ambulatory with complaints of High hector Blood Sugar. 14:19 The patient or guardian reports hyperglycemia. Onset: The symptoms/episode hector began/occurred 2 day(s) ago. Associated signs and symptoms: Pertinent positives: None. Current symptoms: In the emergency department the patient's symptoms are unchanged from the initial presentation. The patient has experienced similar episodes in the past, a few times. Historical: - Allergies: 12:54 Morphine; "crazy"; ch 12:54 PENICILLINS; ch - Home Meds: 12:54 atorvastatin 10 mg oral tab 1 tab once daily [Active]; Farxiga 5 mg oral tab 1 tab once ch daily [Active]; Humalog 100 unit/mL Sub-Q crtg [Active]; hydroxyzine HCl 25 mg Oral tab 1 tab as needed [Active]; Lantus 20 U Sub-Q soln daily [Active]; levothyroxine 50 mcg tab 1 tab once daily [Active]; mirtazapine 15 mg Oral TbDL 1 tab once daily [Active]; montelukast 10 mg oral tab 1 tab once daily [Active]; Nasonex 50 mcg/actuation Nasal spry 2 sprays once daily [Active]; omeprazole 40 mg Oral cpDR 1 cap once daily [Active]; promethazine 25 mg Oral tab 1 tab once daily [Active]; Triamcinolone Acetonide Topical [Active]; venlafaxine 37.5 mg oral cp24 1 cap once daily [Active]; O2 at 2L [Active]; - PMHx: 12:54 Diabetes - IDDM; COPD; Hypothyroidism; GERD; Hypertension; seasonal allergies; ch - PSHx: 12:54 Cholecystectomy; Tubal ligation; ch - Immunization history:: Adult Immunizations up to date. - Social history:: Smoking status: Patient/guardian denies using tobacco, Patient uses e cig. - Ebola Screening: : Patient negative for fever greater than or equal to 101.5 degrees Fahrenheit, and additional compatible Ebola Virus Disease symptoms Patient denies exposure to infectious person Patient denies travel to an Ebola-affected area in the 21 days before illness onset No symptoms or risks identified at this time. - Family history:: pertinent for. ROS: 14:19 Constitutional: Negative for fever, chills, and weight loss, Eyes: Negative for injury, hector pain, redness, and discharge, ENT: Negative for injury, pain, and discharge, Neck: Negative for injury, pain, and swelling, Cardiovascular: Negative for chest pain, palpitations, and edema, Respiratory: Negative for shortness of breath, cough, wheezing, and pleuritic chest pain, Abdomen/GI: Negative for abdominal pain, nausea, vomiting, diarrhea, and constipation, Back: Negative for injury and pain, : Negative for injury, bleeding, discharge, and swelling, MS/Extremity: Negative for injury and deformity, Skin: Negative for injury, rash, and discoloration, Neuro: Negative for headache, weakness, numbness, tingling, and seizure, Psych: Negative for depression, anxiety, suicide ideation, homicidal ideation, and hallucinations, Allergy/Immunology: Negative for hives, rash, and allergies, Hematologic/Lymphatic: Negative for swollen nodes, abnormal bleeding, and unusual bruising. 14:19 Endocrine: Positive for polydipsia, polyuria. Exam: 14:19 Constitutional: This is a well developed, well nourished patient who is awake, alert, hector and in no acute distress. Head/Face: Normocephalic, atraumatic. Eyes: Pupils equal round and reactive to light, extra-ocular motions intact. Lids and lashes normal. Conjunctiva and sclera are non-icteric and not injected. Cornea within normal limits. Periorbital areas with no swelling, redness, or edema. ENT: Nares patent. No nasal discharge, no septal abnormalities noted. Tympanic membranes are normal and external auditory canals are clear. Oropharynx with no redness, swelling, or masses, exudates, or evidence of obstruction, uvula midline. Mucous membranes moist. Neck: Trachea midline, no thyromegaly or masses palpated, and no cervical lymphadenopathy. Supple, full range of motion without nuchal rigidity, or vertebral point tenderness. No Meningismus. Chest/axilla: Normal chest wall appearance and motion. Nontender with no deformity. No lesions are appreciated. Cardiovascular: Regular rate and rhythm with a normal S1 and S2. No gallops, murmurs, or rubs. Normal PMI, no JVD. No pulse deficits. Respiratory: Lungs have equal breath sounds bilaterally, clear to auscultation and percussion. No rales, rhonchi or wheezes noted. No increased work of breathing, no retractions or nasal flaring. Abdomen/GI: Soft, non-tender, with normal bowel sounds. No distension or tympany. No guarding or rebound. No evidence of tenderness throughout. Back: No spinal tenderness. No costovertebral tenderness. Full range of motion. Female : Normal external genitalia. Skin: Warm, dry with normal turgor. Normal color with no rashes, no lesions, and no evidence of cellulitis. MS/ Extremity: Pulses equal, no cyanosis. Neurovascular intact. Full, normal range of motion. Neuro: Awake and alert, GCS 15, oriented to person, place, time, and situation. Cranial nerves II-XII grossly intact. Motor strength 5/5 in all extremities. Sensory grossly intact. Cerebellar exam normal. Normal gait. Psych: Awake, alert, with orientation to person, place and time. Behavior, mood, and affect are within normal limits. Vital Signs: 12:54 BP 142 / 67; Pulse 89; Resp 22; Temp 97.4; Pulse Ox 99% on 2 lpm NC; Weight 61.23 kg; ch Height 4 ft. 11 in. (149.86 cm); Pain 0/10; 13:33 BP 116 / 67; Pulse 96; Resp 20; Temp 97.8; Pulse Ox 99% on 2 lpm NC; Pain 0/10; ch 15:44 BP 111 / 73; Pulse 68; Resp 22; Pulse Ox 98% on 2 lpm NC; Pain 0/10; ch 17:00 BP 126 / 76; Pulse 72; Resp 24; Temp 99.1; Pulse Ox 98% on R/A; Pain 0/10; ch 12:54 Body Mass Index 27.27 (61.23 kg, 149.86 cm) MDM: 12:45 Patient medically screened. [facility] 14:21 Data reviewed: vital signs, nurses notes, lab test result(s), EKG, radiologic studies, [facility] CT scan, plain films. 04/02 13:37 Order name: CBC with Automated Diff; Complete Time: 14:00 [facility] 04/02 13:57 Order name: Protime (+INR); Complete Time: 14:00 [facility] 04/02 12:46 Order name: XRAY Chest (1 view) [facility] 04/02 14:04 Order name: Basic Metabolic Panel; Complete Time: 15:21 [facility] 04/02 14:04 Order name: Liver (Hepatic) Function; Complete Time: 15:21 [facility] 04/02 14:04 Order name: Creatine Phosphokinase; Complete Time: 15:21 [facility] 04/02 14:04 Order name: CKMB Creatine Kinase MB; Complete Time: 15:21 [facility] 04/02 14:04 Order name: Troponin (Emerg Dept Use Only); Complete Time: 15:21 [facility] 04/02 14:04 Order name: NT PRO-BNP; Complete Time: 15:21 [facility] 04/02 14:04 Order name: Magnesium; Complete Time: 15:21 [facility] 04/02 14:04 Order name: PTT, Activated Partial Thromb; Complete Time: 15:21 [facility] 04/02 14:11 Order name: Chest Single View; Complete Time: 15:21 [facility] 04/02 14:22 Order name: Urine Microscopic Only; Complete Time: 15:21 04/02 14:25 Order name: Urine Dipstick--Ancillary (enter results); Complete Time: 16:06 04/02 14:50 Order name: Urine Culture [facility] 04/02 15:25 Order name: Blood Culture Adult (2) [facility] 04/02 15:25 Order name: CT Chest Wo Con; Complete Time: 16:41 [facility] 04/02 12:46 Order name: EKG; Complete Time: 13:32 [facility] 04/02 12:46 Order name: Cardiac monitoring; Complete Time: 15:59 [facility] 04/02 12:46 Order name: EKG - Nurse/Tech; Complete Time: 15:59 [facility] 04/02 12:46 Order name: IV Saline Lock; Complete Time: 15:59 [facility] 04/02 12:46 Order name: Labs collected and sent; Complete Time: 15:59 [facility] 04/02 12:46 Order name: O2 Per Protocol; Complete Time: 15:59 [facility] 04/02 12:46 Order name: O2 Sat Monitoring; Complete Time: 15:59 [facility] 04/02 12:46 Order name: Urine Dipstick-Ancillary (obtain specimen); Complete Time: 15:59 [facility] 04/02 12:56 Order name: Fingerstick Glucose; Complete Time: 12:56 Administered Medications: 13:35 Drug: NS 0.9% 1000 ml Route: IV; Rate: 1 bolus; Site: right forearm; 16:02 Follow up: IV Status: Completed infusion; IV Intake: 1000ml 15:46 Not Given (wrong order): Rocephin - (cefTRIAXone) 1 grams IVPB once over 30 mins; (mix ch in 50 mL NS) 16:01 Drug: LevOfloxacin 500 mg Route: PO; 16:37 Follow up: Response: No adverse reaction 16:01 Drug: Rocephin 1 grams Route: IV; Rate: calculated rate; Site: right forearm; Point of Care Testing: Blood Glucose: 12:54 Blood Glucose: 238 mg/dL; Ranges: Critical Glucose Levels:Adult <50 mg/dl or >400 mg/dl <40 mg/dl or >180 mg/dl Disposition: 04/02/18 16:44 Discharged to Home. Impression: Type 1 diabetes mellitus, Cystitis, Other pneumonia, unspecified organism, Unspecified kidney failure. - Condition is Stable. - Discharge Instructions: Type 1 Diabetes Mellitus, Diagnosis, Adult, Basic Carbohydrate Counting for Diabetes Mellitus, Dysuria, Community-Acquired Pneumonia, Adult, Community-Acquired Pneumonia, Adult, [id number], Diabetes Mellitus and Food, Type 1 Diabetes Mellitus, Self Care, Adult, Type 1 Diabetes Mellitus, Diagnosis, Adult, [id number], Type 1 Diabetes Mellitus, Self Care, Adult, [id number]. - Prescriptions for Levaquin 500 mg Oral Tablet - take 1 tablet by ORAL route once daily for 7 days; 7 tablet. - Medication Reconciliation Form, Thank You Letter, Antibiotic Education, Prescription Opioid Use form. - Follow up: Shad Brown; When: 2 - 3 days; Reason: Recheck today's complaints, Continuance of care, Re-evaluation by your physician. - Problem is new. - Symptoms have improved. Signatures: Dispatcher [employer] Africa Jack RN RN ch Anderson, Corey, MD MD cha Leal, Jahala, RN RN [email or web address] Corrections: (The following items were deleted from the chart) 14:28 13:31 BASIC METABOLIC PANEL+C.LAB.BRZ ordered. EDMS EDMS 14:28 13:31 CBC+H.LAB.BRZ ordered. EDMS EDMS 14:29 13:31 CKMB+C.LAB.BRZ ordered. EDMS EDMS 14:29 13:31 CREATINE PHOSPHOKINASE+C.LAB.BRZ ordered. EDMS EDMS 14:29 13:31 HEPATIC FUNCTION+C.LAB.BRZ ordered. EDMS EDMS 14:29 13:31 MAGNESIUM+C.LAB.BRZ ordered. EDMS EDMS 14:29 13:31 PROBNP+C.LAB.BRZ ordered. EDMS EDMS 14:29 13:31 PROTIME (+INR)+COAG.LAB.BRZ ordered. EDMS EDMS 14:29 13:31 PTT, ACTIVATED+COAG.LAB.BRZ ordered. EDMS EDMS 14:29 13:31 TROPONIN (EMERG DEPT USE ONLY)+C.LAB.BRZ ordered. EDMS EDMS 14:29 13:31 LIPASE+C.LAB.BRZ ordered. EDMS EDMS 14:29 13:31 Urine Culture+BA.LAB.BRZ ordered. EDIA EDMS 17:15 16:44 04/02/2018 16:44 Discharged to Home. Impression: Type 1 diabetes mellitus; ch Cystitis; Other pneumonia, unspecified organism; Unspecified kidney failure. Condition is Stable. Discharge Instructions: Dysuria, Community-Acquired Pneumonia, Adult, Community-Acquired Pneumonia, Adult, [id number], Type 1 Diabetes Mellitus, Diagnosis, Adult, Basic Carbohydrate Counting for Diabetes Mellitus, Diabetes Mellitus and Food, Type 1 Diabetes Mellitus, Self Care, Adult, Type 1 Diabetes Mellitus, Diagnosis, Adult, [id number], Type 1 Diabetes Mellitus, Self Care, Adult, [id number]. Prescriptions for Levaquin 500 mg Oral Tablet - take 1 tablet by ORAL route once daily for 7 days; 7 tablet. and Forms are Medication Reconciliation Form, Thank You Letter, Antibiotic Education, Prescription Opioid Use. Follow up: Shad Brown; When: 2 - 3 days; Reason: Recheck today's complaints, Continuance of care, Re-evaluation by your physician. Problem is new. Symptoms have improved. hector
[2018-04-02 17:35] VITALS: TEMP 97.8
[2018-04-02 17:36] VITALS: BP 111/73; O2SAT 98
--- NOTE | 2018-04-03 12:12 | EKG ---
Test Date: 2018-04-02 Test Time: 13:56:23 Life Skills Worker: BIANCA MEASUREMENT RESULTS: Intervals: Rate: 79 [place]: 150 QRSD: 68 QT: 386 QTc: 442 [place]: P: 42 [place]: 150 QRS: 61 T: 35 INTERPRETIVE STATEMENTS: Normal sinus rhythm Low voltage QRS Borderline ECG Compared to ECG 03/06/2018 17:30:32 Low QRS voltage now present Sinus tachycardia no longer present Electronically Signed On 04-03-18 12:07:48 CDT by Hugo Tucker
== END 2018-04-02 17:15 | disposition home or self-care (01) ==
LOC: ER 12:24
DX: N30.90 Cystitis, unspecified without hematuria (principal); J18.8 Other pneumonia, unspecified organism; N19 Unspecified kidney failure; I10 Essential (primary) hypertension; E03.9 Hypothyroidism, unspecified; J44.9 Chronic obstructive pulmonary disease, unspecified; Z72.0 Tobacco use; Z79.4 Long term (current) use of insulin; Z88.0 Allergy status to penicillin; Z88.5 Allergy status to narcotic agent
CPT/HCPCS: 36415; 71045; 71250; 80048; 80076; 82550; 82553; 82962; 83735; 83880; 84484; 85025; 85610; 85730; 87040 ×2; 87086; 87088; 93005; 96361; 96374; 99285; J0696; J7030; 81003; 81015

== ENCOUNTER 2021-01-26 18:46 | Emergency (ER) | payer OTHER ==
--- NOTE | 2021-01-26 20:41 | RAD REPORT ---
EXAM DESCRIPTION: CT - [id number] - 01/26/2021 7:40 pm CLINICAL HISTORY: SWELLING, slip and fall, COMPARISON: CT MULTIPLANAR RECONSTRUCTION dated 10/27/2007 TECHNIQUE: Axial 5 mm thick images of the head were obtained. Axial 2 mm thick images of the cervic al spine were obtained with sagittal and coronal reconstruction images generated and reviewed. All CT scans are performed using dose optimization technique as appropriate and may include automated exposure control or mA/KV adjustment according to patient size. FINDINGS: A small left-sided acute subdural hematoma is present 5 mm in maximum thickness. The subdu ral hematoma overlies the posterior left frontal lobe and left parietal lobe along a 4 centimeter ant erior to posterior length. There is no measurable mass effect or measurable midline shift. Patient britton s underlying atrophy and chronic ischemic changes that are mild to moderate for age. No suspicion for acute infarction. Ventricles are in proportion to volume loss. Mastoid air cells and paranasal sinus es are clear. No globe or orbital content injury. There is a large right periorbital hematoma. No sku ll fracture seen. Cervical bodies are normal in height and normal alignment. The very slight rotation of the C1 ring re lative to the body of C2 not outside of normal range. Degenerative changes present at the dens anteri or arch C1 level. No disk space narrowing. No fracture or acute bony abnormality. Anterior endplate s purs are present C5-C7. No bony foraminal encroachment. No facet joint alignment abnormalities. Centr al canal detail is inherently limited. No paraspinal mass or hematoma. IMPRESSION: Small 5 mm thick acute subdural hematoma overlying the left parietal lobe and a minimal portion of the posterior left frontal lobe. There is no measurable mass effect and no midline shift. Moderate severity underlying atrophy and chronic ischemic change. Large right periorbital hematoma pr esent. Negative CT cervical spine examination for acute or significant finding.
--- NOTE | 2021-01-26 20:55 | ER ---
Nurse's Notes [facility] Name: Latisha Hernandez Age: 60 yrs Sex: Female : 1960 Arrival Date: 01/26/2021 Time: 18:48 Bed 23 Private MD: Diagnosis: Traumatic subdural hemorrhage Presentation: 01/26 19:07 Chief complaint: Patient states: Slipped and fell 2 hrs [employer]AY [employer]IG O[employer]. Bruise and swelling on R ca1 forehead, R eye, Pain on L pinky toe, R thumb. Denies LOC. Not on blood thinners. Coronavirus screen: Client denies travel out of the [place] in the last 14 days. At this time, the client does not indicate any symptoms associated with coronavirus-19. Ebola Screen: Patient negative for fever greater than or equal to 101.5 degrees Fahrenheit, and additional compatible Ebola Virus Disease symptoms Patient denies exposure to infectious person. Patient denies travel to an Ebola-affected area in the 21 days before illness onset. No symptoms or risks identified at this time. Initial Sepsis Screen: Does the patient meet any 2 criteria? No. Patient's initial sepsis screen is negative. Does the patient have a suspected source of infection? No. Patient's initial sepsis screen is negative. Risk Assessment: Do you want to hurt yourself or someone else? Patient reports no desire to harm self or others. Onset of symptoms was January 26, 2021. 19:07 Method Of Arrival: Wheelchair ca1 19:07 Acuity: ANGEL 4 ca1 19:07 Care prior to arrival: None. ca1 19:07 Mechanism of Injury: Fall from standing position. Trauma event details: Injury occurred ca1 in the [facility], Injury occurred: at home. Injury occurred: January 26, 2021 Injury occurred at: 17:00. Trauma Activation: Alert Physician: ED Physician; Name: ; Notified At: ; Arrived At: Physician: General Surgeon; Name: ; Notified At: ; Arrived At: Physician: Radiology; Name: ; Notified At: ; Arrived At: Physician: Respiratory; Name: ; Notified At: ; Arrived At: Physician: Lab; Name: ; Notified At: ; Arrived At: Historical: - Allergies: 19:11 Morphine; "crazy"; ca1 19:11 PENICILLINS; ca1 - Home Meds: 22:32 aripiprazole 2 mg oral tab 1 tab nightly [Active]; montelukast 10 mg Oral tab 1 tab lp1 once daily [Active]; atorvastatin 10 mg Oral tab 1 tab nightly [Active]; omeprazole 40 mg Oral cpDR 1 cap once daily [Active]; venlafaxine 150 mg oral cp24 once daily [Active]; meloxicam 15 mg oral tab 1 tab once daily [Active]; methocarbamol 500 mg Oral tab daily [Active]; mirtazapine 15 mg Oral TbDL 1 tab nightly [Active]; Humalog 100 unit/mL Sub-Q crtg 8 unit before meals [Active]; Lantus 15 units Sub-Q soln nightly [Active]; - PMHx: 19:11 COPD; Diabetes - IDDM; GERD; Hypertension; Hypothyroidism; seasonal allergies; ca1 - Immunization history:: Client reports having NOT received the Covid vaccine. Last tetanus immunization: unknown, Pneumococcal vaccine is up to date, Flu vaccine is up to date. - Social history:: Smoking status: Reported history of juuling and/or vaping. - Immunization history: Last tetanus immunization: unknown. Screenin:17 Abuse screen: Denies threats or abuse. Nutritional screening: No deficits noted. bb Tuberculosis screening: No symptoms or risk factors identified. Fall Risk Fall in past 12 months (25 points). Secondary diagnosis (15 points) impaired mobility, Ambulatory Aid- Crutches/Cane/Walker (15 pts). Total Son Fall Scale indicates High Risk Score (45 or more points). Fall prevention measures have been instituted. Side Rails Up X 2 Family Present and informed to notify staff if the need to leave the bedside As available patient and family educated on Fall Prevention Program and Strategies. Primary Survey: 19:16 NO uncontrolled hemorrhage observed. A: The patient is alert. Airway: patent. ca1 Breathing/Chest: Respiratory pattern: regular, Respiratory effort: spontaneous, unlabored, Chest inspection: symmetrical rise and fall of the chest. Circulation: Skin color: pink, Skin temperature: warm, dry. Disability Alert. Exposure/Environment: All clothing and personal items were removed. Forensic evidence collection is not deemed to be indicated at this time. Items placed in patient belonging bag. There is no evidence of uncontrolled external bleeding. Obvious injury(ies) are noted at this time: Bruise and swelling on R forehead and R eye. 21:15 Reassessment Airway Airway Patent Breathing/Chest Respiratory pattern Regular lp1 Respiratory effort Spontaneous Unlabored Circulation Color [place] Temperature Warm Dry Disability Alert. Secondary Survey: 19:16 HEENT: Head Other Bruising and swelling on R forehead Face Other swelling and bruise on ca1 the R forearm Eyes: Edema noted right eyebrow, right upper eyelid, right outer canthus, right inner canthus and right lower eyelid. Ears: clear bilaterally. Nose: clear to bilateral nares. Throat: No injury or deformity noted. is clear with gag reflex present. Gastrointestinal: Abdomen is soft, flat, Bowel sounds present in all quadrants. Palpation No deficit noted. : No signs and/or symptoms were reported regarding the genitourinary system. Musculoskeletal: Circulation, motion, and sensation intact. Capillary refill < 3 seconds. Assessment: 19:15 Reassessment: Notify Dr. Arita, CT head C spine. ca1 20:17 General: Appears in no apparent distress. uncomfortable, Behavior is calm, appropriate bb for age. Pain: Complains of pain in right side of face. Neuro: Level of Consciousness is awake, alert, obeys commands, Oriented to person, place, situation. Cardiovascular: Capillary refill < 3 seconds Patient's skin is warm and dry. Respiratory: Respiratory effort is even, unlabored. GI: No signs and/or symptoms were reported involving the gastrointestinal system. EENT: right eye swollen shut. Derm: Bruising that is dark purple, on right side of face. Musculoskeletal: Circulation, motion, and sensation intact. 22:10 Reassessment: report called [place] [facility] 22:30 Reassessment: Patient appears in no apparent distress at this time. Patient resting, lp1 eyes closed, respirations even, unlabored; family at bedside aware of pending transfer. 22:40 Reassessment: [facility] at bedside for transfer. lp1 Vital Signs: 19:07 BP 150 / 77; Pulse 85; Resp 18 S; Temp 97.8(TE); Pulse Ox 96% on 1 lpm NC; Weight 65.77 ca1 kg (R); Height 4 ft. 11 in. (149.86 cm) (R); Pain 9/10; 21:00 BP 174 / 90; Pulse 88; Resp 18; Pulse Ox 94% on 1 lpm NC; lp1 22:10 BP 152 / 79; Pulse 81; Resp 18; Pulse Ox 96% on 1 lpm NC; lp1 19:07 Body Mass Index 29.29 (65.77 kg, 149.86 cm) ca1 Lawrence Coma Score: 19:16 Eye Response: spontaneous(4). Verbal Response: oriented(5). Motor Response: obeys ca1 commands(6). Total: 15. Trauma Score (Adult): 19:16 Eye Response: spontaneous(1); Verbal Response: oriented(1); Motor Response: obeys ca1 commands(2); Systolic BP: > 89 mm Hg(4); Respiratory Rate: 10 to 29 per min(4); Vadim Score: 15; Trauma Score: 12 ED Course: 18:48 Patient arrived in ED. bp1 19:10 Triage completed. ca1 19:11 Arm band placed on right wrist. ca1 19:16 Oxygen administration via nasal cannula \\T\\ 1L/min Response to oxygen therapy: from home. ca1 19:40 CT Head C Spine In Process Unspecified. EDMS 20:17 Abigail Ying, RN is Primary Nurse. bb 20:17 Patient has correct armband on for positive identification. Bed in low position. Call bb light in reach. Side rails up X2. Adult w/ patient. 20:29 Ramone Varghese NP is PHCP. pm1 20:29 Yifan Arita MD is Attending Physician. pm1 21:00 Thermoregulation: warm blanket given to patient. lp1 21:05 Foot Left 3 View XRAY In Process Unspecified. EDMS 21:05 Hand Right 3 View XRAY In Process Unspecified. EDMS 21:15 Initial lab(s) drawn, by me, sent to lab. Inserted saline lock: 18 gauge in right jb4 antecubital area, using aseptic technique. Blood collected. 21:30 Initiated transfer at [facility] with Joya Moreno. Call was connected to tt3 JOSE Grant, provider of pt after connecting with Dr. Wilcox, Neurosurgeon at [facility]. 21:37 Joya Moreno gave admin approval. The pt is going to [facility] ER. The tt3 accepting physician is Dr. Wilcox. Nurse to call report to . Face sheet and MOT to be faxed to per Joya's request. 22:11 No provider procedures requiring assistance completed. lp1 22:54 Patient transferred, IV remains in place. lp1 Administered Medications: 21:30 Drug: Zofran (Ondansetron) 4 mg Route: IVP; Site: right antecubital; jb4 22:20 Follow up: Response: No adverse reaction lp1 21:32 Drug: fentaNYL (PF) 25 mcg Route: IVP; Site: right antecubital; jb4 22:20 Follow up: Response: Pain is decreased lp1 22:44 Drug: fentaNYL (PF) 25 mcg Route: IVP; Site: right antecubital; lp1 22:50 Follow up: Response: Medication administered at discharge. lp1 Output: 22:00 Urine: 200ml (Voided); Total: 200ml. lp1 Outcome: 20:55 ER care complete, transfer ordered by MD. pm1 22:11 Condition: stable lp1 22:11 Instructed on the need for transfer. 22:54 Transferred by ground EMS to [facility], Transfer form completed. X-rays sent lp1 w/ patient. 22:54 Patient's length of stay in the Emergency Department was greater than 2 hours. lp1 22:55 Patient left the ED. lp1 Signatures: Dispatcher [employer] EDMS Abigail Ying RN RN bb Pena, Laura, RN RN lp1 Ramone Varghese, METAL POURER METAL POURER pm1 Nolan Reynolds RN RN jb4 Mayra Salvador RN RN ca1 Esmer Barnhart bp1 James Atkinson tt3
--- NOTE | 2021-01-26 20:55 | EDPHYS ---
Physician Documentation [facility] Name: Latisha Hernandez Age: 60 yrs Sex: Female : 1960 Arrival Date: 01/26/2021 Time: 18:48 Bed 23 Private MD: ED Physician Yifan Arita HPI: 01/26 20:40 This 60 yrs old Female presents to ER via Wheelchair with complaints of Fall pm1 Injury. 20:40 Details of fall: The patient fell from an upright position, while walking, and struck. pm1 Onset: The symptoms/episode began/occurred just prior to arrival. Associated injuries: The patient sustained injury to the head, contusion, pain, swelling, left fifth toe, Pain, dorsal aspect of proximal phalanx of right thumb, Pain. Severity of symptoms: in the emergency department the symptoms are unchanged. The patient has not experienced similar symptoms in the past. The patient has not recently seen a physician, the patient's primary care provider is Dr. Brown. Patient with a history of urinary incontinence. She was walking to the restroom and accidentally slipped on her own urine on the floor. Fell on the right side of her head and body. No LOC. No neck pain. Presenting swelling and contusion to right eye, left 5th toe pain, and right thumb pain. Historical: - Allergies: 19:11 Morphine; "crazy"; ca1 19:11 PENICILLINS; ca1 - Home Meds: 22:32 aripiprazole 2 mg oral tab 1 tab nightly [Active]; montelukast 10 mg Oral tab 1 tab lp1 once daily [Active]; atorvastatin 10 mg Oral tab 1 tab nightly [Active]; omeprazole 40 mg Oral cpDR 1 cap once daily [Active]; venlafaxine 150 mg oral cp24 once daily [Active]; meloxicam 15 mg oral tab 1 tab once daily [Active]; methocarbamol 500 mg Oral tab daily [Active]; mirtazapine 15 mg Oral TbDL 1 tab nightly [Active]; Humalog 100 unit/mL Sub-Q crtg 8 unit before meals [Active]; Lantus 15 units Sub-Q soln nightly [Active]; - PMHx: 19:11 COPD; Diabetes - IDDM; GERD; Hypertension; Hypothyroidism; seasonal allergies; ca1 - Immunization history:: Client reports having NOT received the Covid vaccine. Last tetanus immunization: unknown, Pneumococcal vaccine is up to date, Flu vaccine is up to date. - Social history:: Smoking status: Reported history of juuling and/or vaping. - Immunization history: Last tetanus immunization: unknown. ROS: 20:40 Constitutional: Negative for fever, chills, and weight loss. pm1 20:40 Neck: Negative for injury, pain, and swelling, Cardiovascular: Negative for chest pain, palpitations, and edema, Respiratory: Negative for shortness of breath, cough, wheezing, and pleuritic chest pain. 20:40 Abdomen/GI: Negative for abdominal pain, nausea, vomiting, diarrhea, and constipation. 20:40 MS/Extremity: Negative for injury and deformity, Skin: Negative for injury, rash, and discoloration. 20:40 Eyes: Positive for swelling, of the right eye, Negative for vision loss, visual disturbance. 20:40 Back: Positive for chronic back pain. 20:40 : Positive for chronic incontinence, Negative for burning with urination. 20:40 Neuro: Positive for headache, Negative for loss of consciousness, numbness, syncope, near syncope, tingling, weakness. 20:40 All other systems are negative. pm1 Exam: 20:40 Constitutional: This is a well developed, well nourished patient who is awake, alert, pm1 and in no acute distress. 20:40 Neck: Trachea midline, no thyromegaly or masses palpated, and no cervical lymphadenopathy. Supple, full range of motion without nuchal rigidity, or vertebral point tenderness. No Meningismus. Chest/axilla: Normal chest wall appearance and motion. Nontender with no deformity. No lesions are appreciated. 20:40 Back: No spinal tenderness. No costovertebral tenderness. Full range of motion. Skin: Warm, dry with normal turgor. Normal color with no rashes, no lesions, and no evidence of cellulitis. 20:40 Head/face: Noted is no obvious of injury or deformity except contusion, of the right eye, swelling, that is moderate, of the right eye. 20:40 Eyes: Pupils: no acute changes, normal size, normal reaction to light, Extraocular movements: intact throughout, Conjunctiva: no acute changes, no injection, Sclera: no acute changes, icterus, is not appreciated. 20:40 ENT: External ear(s): are unremarkable, Ear canal(s): are normal, TM's: no acute changes. 20:40 Cardiovascular: Exam negative for acute changes, Rate: normal, Rhythm: regular, Pulses: no pulse deficits are appreciated, Heart sounds: normal, Edema: is not appreciated. 20:40 Respiratory: the patient does not display signs of respiratory distress, Breath sounds: are clear throughout, no acute changes. 20:40 Abdomen/GI: Inspection: abdomen appears normal, Palpation: abdomen is soft and non-tender, in all quadrants. 20:40 Musculoskeletal/extremity: Extremities: grossly normal except: noted in the left fifth toe: swelling, tenderness, There is no evidence of decreased ROM, deformity, noted in the dorsal aspect of proximal phalanx of right thumb: tenderness, no evidence of decreased ROM, deformity, swelling. 20:40 Neuro: Orientation: is normal, Mentation: is normal, Motor: is normal, moves all fours, Sensation: is normal, no obvious gross deficits. Vital Signs: 19:07 BP 150 / 77; Pulse 85; Resp 18 S; Temp 97.8(TE); Pulse Ox 96% on 1 lpm NC; Weight 65.77 ca1 kg (R); Height 4 ft. 11 in. (149.86 cm) (R); Pain 9/10; 21:00 BP 174 / 90; Pulse 88; Resp 18; Pulse Ox 94% on 1 lpm NC; lp1 22:10 BP 152 / 79; Pulse 81; Resp 18; Pulse Ox 96% on 1 lpm NC; lp1 19:07 Body Mass Index 29.29 (65.77 kg, 149.86 cm) ca1 Vadim Coma Score: 19:16 Eye Response: spontaneous(4). Verbal Response: oriented(5). Motor Response: obeys ca1 commands(6). Total: 15. Trauma Score (Adult): 19:16 Eye Response: spontaneous(1); Verbal Response: oriented(1); Motor Response: obeys ca1 commands(2); Systolic BP: > 89 mm Hg(4); Respiratory Rate: 10 to 29 per min(4); Vadim Score: 15; Trauma Score: 12 MDM: 20:41 Patient medically screened. pm1 20:41 Data reviewed: vital signs. Data interpreted: Pulse oximetry: on room air is 96 %. pm1 Interpretation: normal. 20:50 Counseling: I had a detailed discussion with the patient and/or guardian regarding: the pm1 historical points, exam findings, and any diagnostic results supporting the discharge/admit diagnosis, radiology results, the need to transfer to another facility, [facility] does not immediately have the required specialist. 21:37 Physician consultation: MD Terry regarding regarding transfer, patient's condition, pm1 Accepted patient for transfer to ER under Dr. Velez. 01/26 20:41 Order name: CBC with Diff; Complete Time: 21:36 pm1 01/26 20:41 Order name: CMP; Complete Time: 22:23 pm1 01/26 19:15 Order name: CT Head C Spine; Complete Time: 21:19 ca1 01/26 20:40 Order name: Foot Left 3 View XRAY; Complete Time: 21:19 pm1 01/26 20:41 Order name: PT-INR; Complete Time: 22:23 pm1 01/26 20:41 Order name: Ptt, Activated; Complete Time: 22:23 pm1 01/26 20:40 Order name: IV Saline Lock; Complete Time: 21:40 pm1 01/26 20:40 Order name: Hand Right 3 View XRAY; Complete Time: 21:19 pm1 01/26 20:41 Order name: Ice pack; Complete Time: 21:53 pm1 Administered Medications: 21:30 Drug: Zofran (Ondansetron) 4 mg Route: IVP; Site: right antecubital; jb4 22:20 Follow up: Response: No adverse reaction lp1 21:32 Drug: fentaNYL (PF) 25 mcg Route: IVP; Site: right antecubital; jb4 22:20 Follow up: Response: Pain is decreased lp1 22:44 Drug: fentaNYL (PF) 25 mcg Route: IVP; Site: right antecubital; lp1 22:50 Follow up: Response: Medication administered at discharge. lp1 Disposition: 01/27 07:26 Co-signature as Attending Physician, Yifan Arita MD. 7 Disposition Summary: 01/26/21 20:55 Transfer Ordered Transfer Location: [facility] pm1 Reason: Higher level of care pm1 Condition: Stable pm1 Problem: new pm1 Symptoms: are unchanged pm1 Accepting Physician: (01/26/21 22:55) precious1 Diagnosis - Traumatic subdural hemorrhage pm1 Forms: - Medication Reconciliation Form pm1 - SBAR form pm1 Signatures: Dispatcher [employer] EDMS Jes Cueto RN RN lp1 Avila Manzanares, MURAL ARTIST-C MURAL ARTIST-Cla1 Ramone Varghese, FORENSIC TOXICOLOGIST FORENSIC TOXICOLOGIST pm1 Nolan Reynolds RN RN jb4 Mayra Salvador RN RN ca1 Yifan Arita MD MD [email or web address] Corrections: (The following items were deleted from the chart) 01/26 22:55 20:55 MD [email or web address] lp1
--- NOTE | 2021-01-26 21:16 | RAD REPORT ---
EXAM DESCRIPTION: RAD - Foot Left 3 View - 01/26/2021 9:05 pm CLINICAL HISTORY: PAIN COMPARISON: No comparisons FINDINGS: No fracture, dislocation or periosteal reaction. No acute or destructive bony process. No air or foreign body in the soft tissues. IMPRESSION: Negative left foot examination.
--- NOTE | 2021-01-26 21:17 | RAD REPORT ---
EXAM DESCRIPTION: RAD - Hand Right 3 View - 01/26/2021 9:05 pm CLINICAL HISTORY: PAIN, fall COMPARISON: No comparisons FINDINGS: No fracture is identified. There is no dislocation or periosteal reaction noted. IP joint degenerative changes are present worse in the fifth DIP joint. No erosive or destructive component. N o foreign body or significant soft tissue abnormality. IMPRESSION: Negative right hand examination for fracture or acute finding.
[2021-01-26 21:30] LABS: Absolute Lymphocytes (CBC) 1.1 K/uL (0.7-4.9); Basophils % 0.6 % (0-1.3); Hematocrit 37.5 % (36.0-45.0); MPV 7.5 fL (7.6-11.3); RBC Red Blood Cell Count 4.33 M/uL (3.86-4.86)
[2021-01-26 21:43] LABS: Albumin 4.5 g/dL (3.4-5.0); Bilirubin Total 0.3 mg/dL (0.2-1.0); Potassium 5.5 mmol/L (3.5-5.1); Protein, Total 7.7 g/dL (6.4-8.2)
[2021-01-26] MEDS ORDERED: FENTANYL CITR 100 MCG/2 ML ONE ×2 (21:44→23:02)
[2021-01-26] MEDS ORDERED: ONDANSETRON 4 MG/2 ML VIAL ONE (21:45)
[2021-01-26 22:01] LABS: Protime INR 0.97
[2021-01-26 23:02] VITALS: TEMP 97.8
[2021-01-26 23:04] VITALS: BP 152/79; O2SAT 96
== END 2021-01-26 22:55 | disposition short-term general hospital (02) ==
LOC: ER 18:46
DX: S06.5X0A Traumatic subdural hemorrhage without loss of consciousness, initial encounter (principal); W01.198A Fall on same level from slipping, tripping and stumbling with subsequent striking against other object, initial encounter; I10 Essential (primary) hypertension; E03.9 Hypothyroidism, unspecified; E11.9 Type 2 diabetes mellitus without complications; Z79.4 Long term (current) use of insulin; Z88.0 Allergy status to penicillin; Z88.5 Allergy status to narcotic agent
CPT/HCPCS: 85025; 36415; 85610; 82947; 85730; 80053; 70450; 72125; 73130; 73630; 96375; 96374; 99285; J3010 ×2; J2405; G0390

== ENCOUNTER 2021-06-18 06:26 | Day surgery (SDC) | payer OTHER ==
[2021-06-18] MEDS ORDERED: NA CHLORIDE 0.9% 1,000 ML ONE (06:50)
[2021-06-18] MEDS ORDERED: propofoL 200 MG/20 ML VIAL IV ONE (07:13)
[2021-06-18] MEDS ORDERED: MIDAZOLAM HCL 2 MG/2 ML INJ ONE (07:13)
[2021-06-18] MEDS ORDERED: LIDOCAINE 1% MPF 5 ML VIAL ONE ×2 (07:13→07:17)
[2021-06-18] MEDS ORDERED: LIDOCAINE 2% W/EPI 1:200,000 MPF 20 ML VIAL IM ONE (07:26)
[2021-06-18] MEDS ORDERED: [UNRECOGNIZED DRUG - OTHER] IV ONE (08:00)
[2021-06-18] MEDS ORDERED: GENTAMICIN IV ONE (08:00)
[2021-06-18] MEDS ORDERED: AMPICILLIN SODIUM 2 GM in NA CHLORIDE 0.9% 100 ML IVPB ONE (08:00)
[2021-06-18 10:43] VITALS: BP 131/71; TEMP 97.9; O2SAT 100
== END 2021-06-18 07:45 | disposition home or self-care (01) ==
LOC: OR 06:26
PROVIDERS: ATTEND Urology
DX: N20.1 Calculus of ureter (principal); Z20.822 Contact with and (suspected) exposure to COVID-19; Z53.09 Procedure and treatment not carried out because of other contraindication
CPT/HCPCS: 87088; 87086; 82947; 87077; 87186; U0002; J7030; J0290; J1580; J2250; J2704

== ENCOUNTER 2021-06-24 13:59 | Emergency (ER) | payer OTHER ==
--- OUTSIDE RECORDS SUMMARY | 2021-06-24 14:02 | XMS REPORT | Continuity of Care Document ---
:1960 Author Organization [facility] t Address [address] [place] [address] Dr. Archer [address] [place] [id number] Care Team Providers Name Role Phone Ricardo GA Attending Clinician Unavailable Payers Payer Name Policy Type Policy Number Effective Date Expiration Date Bella rodriguez MEDICARE PART A [id number] 1998 2024 AND B 00:00:00 00:00:00 Problems This patient has no known problems. Allergies, Adverse Reactions, Alerts This patient has no known allergies or adverse reactions. Medications This patient has no known medications. Procedures This patient has no known procedures. Encounters Start End Encounter Admission Attending Care Care Encounter Source Date/Time Date/Time Type Type Clinicians Facility Department ID 2021-03-01 Outpatient [facility] [id number] [place] 01:03:54 [facility] 2021-01-27 Inpatient E [facility] [address] [facility] H 04:41:00 Results This patient has no known results.
--- NOTE | 2021-06-24 14:49 | RAD REPORT ---
EXAM DESCRIPTION: CT - [id number] - 06/24/2021 2:40 pm CLINICAL HISTORY: Trauma, head and neck injury. PAIN COMPARISON: Head C Spine Mpr Wo Con dated 01/26/2021; CT MULTIPLANAR RECONSTRUCTION dated 10/27/2007 TECHNIQUE: Axial 5 mm thick images of the head were obtained. Axial 2 mm thick images of the cervical spine were obtained with sagittal and coronal reconstruction images generated and reviewed. All CT scans are performed using dose optimization technique as appropriate and may include automated exposure control or mA/KV adjustment according to patient size. FINDINGS: CT HEAD WITHOUT CONTRAST: No acute hemorrhage, hydrocephalus or extra-axial collection is identified.No areas of brain edema or midline shift. Left forehead swelling. Chronic small vessel ischemic changes. The paranasal sinuses and mastoids are clear.The calvarium is intact. CT CERVICAL SPINE WITHOUT CONTRAST: No fracture or subluxation.No prevertebral soft tissues swelling is identified. Mild cervical spondyl osis with spurring and mild disc height loss at the C5-6 and C6-7 levels. No central spinal stenosis. Loss of the normal cervical lordosis is noted. Slight compression deformity of T1 is unchanged. IMPRESSION: No acute intracranial or cervical spine findings.
--- NOTE | 2021-06-24 14:57 | RAD REPORT ---
EXAM DESCRIPTION: RAD - Knee Left 3 View - 06/24/2021 2:48 pm CLINICAL HISTORY: PAIN COMPARISON: Head C Spine Mpr Wo Con dated 06/24/2021 FINDINGS: Moderate knee effusion. Question nondisplaced fracture of the patella. Prepatellar soft ti ssue swelling is present. Mild to moderate mediolateral compartment narrowing. IMPRESSION: Findings are suspicious for a nondisplaced fracture of the patella. Moderate knee effusi on.
--- NOTE | 2021-06-24 15:17 | EDPHYS ---
Physician Documentation [facility] Name: Latisha Hernandez Age: 61 yrs Sex: Female : 1960 Arrival Date: 06/24/2021 Time: 14:07 Bed 16 Private MD: ED Physician Silvano Fernandez HPI: 06/24 16:09 This 61 yrs old Female presents to ER via EMS with complaints of Fall Injury. kb 16:09 Details of fall: The patient fell from an upright position, while walking. Onset: The kb symptoms/episode began/occurred just prior to arrival. Associated injuries: The patient sustained injury to the head, hematoma, pain, left knee, abrasion, painful injury, swelling. Severity of symptoms: At their worst the symptoms were mild, moderate, in the emergency department the symptoms are unchanged. The patient has not experienced similar symptoms in the past. The patient has not recently seen a physician. Family states patient walks with a shuffling gait. States that her toes twisted underneath her foot causing her to lose her balance and fall in the parking lot. Reports pain to left knee and head. Family states patient acting appropriate, normal for self, no LOC. Patient awake and alert.. Historical: - Allergies: 14:12 Morphine; "crazy"; jh5 14:12 PENICILLINS; jh5 - Home Meds: 14:12 aripiprazole 2 mg Oral tab 1 tab nightly [Active]; atorvastatin 10 mg Oral tab 1 tab jh5 nightly [Active]; Humalog 100 unit/mL Sub-Q crtg 8 unit before meals [Active]; Lantus 15 units Sub-Q soln nightly [Active]; meloxicam 15 mg Oral tab 1 tab once daily [Active]; methocarbamol 500 mg Oral tab daily [Active]; mirtazapine 15 mg Oral TbDL 1 tab nightly [Active]; montelukast 10 mg Oral tab 1 tab once daily [Active]; venlafaxine 150 mg Oral cp24 once daily [Active]; omeprazole 40 mg Oral cpDR 1 cap once daily [Active]; - PMHx: 14:12 COPD; Diabetes - IDDM; GERD; Hypothyroidism; Hypertension; seasonal allergies; jh5 - Immunization history:: Adult Immunizations up to date. - Social history:: Smoking status: Patient denies any tobacco usage or history of. ROS: 16:11 Constitutional: Negative for fever, chills, and weight loss. kb 16:11 MS/extremity: Positive for abrasion, pain, swelling, tenderness, of the left knee. 16:11 Skin: Positive for HEMATOMA TO LEFT FOREHEAD. 16:11 Neuro: Positive for headache. 16:11 All other systems are negative. Exam: 16:11 Constitutional: This is a well developed, well nourished patient who is awake, alert, kb and in no acute distress. Eyes: Pupils equal round and reactive to light, extra-ocular motions intact. Lids and lashes normal. Conjunctiva and sclera are non-icteric and not injected. Cornea within normal limits. Periorbital areas with no swelling, redness, or edema. ENT: Moist Mucous membranes Cardiovascular: Regular rate and rhythm with a normal S1 and S2. No gallops, murmurs, or rubs. No pulse deficits. Respiratory: Respirations even and unlabored. No increased work of breathing. Talking in full sentences Abdomen/GI: Soft, non-tender. No distention MS/ Extremity: Pulses equal, no cyanosis. Neurovascular intact. Full, normal range of motion. 16:11 Head/face: Noted is no obvious of injury or deformity except abrasion(s), that are mild, of the left side of forehead, hematoma, that is moderate, of the left side of forehead. 16:11 Musculoskeletal/extremity: Extremities: grossly normal except: noted in the left knee: abrasion, pain, swelling, tenderness, ROM: intact in all extremities, Circulation is intact in all extremities. Sensation intact. 16:11 Skin: HEMATOMA WITH ABRASION TO LEFT SIDE OF FOREHEAD. 16:11 Neuro: Exam negative for acute changes. Vital Signs: 14:09 BP 128 / 68; Pulse 83; Resp 16; Temp 98.6; Pulse Ox 98% ; Weight 68.04 kg; Height 5 ft. jh5 4 in. (162.56 cm); 14:25 Temp 98.6(O); tw2 14:09 Body Mass Index 25.75 (68.04 kg, 162.56 cm) jh5 MDM: 14:11 Patient medically screened. kb 15:02 Data reviewed: vital signs, nurses notes. Data interpreted: Pulse oximetry: on room air kb is 98 %. Interpretation: normal. Counseling: I had a detailed discussion with the patient and/or guardian regarding: the historical points, exam findings, and any diagnostic results supporting the discharge/admit diagnosis, radiology results, the need for outpatient follow up, a family practitioner, to return to the emergency department if symptoms worsen or persist or if there are any questions or concerns that arise at home. 06/24 14:22 Order name: CT Head C Spine; Complete Time: 14:54 kb 06/24 14:22 Order name: Knee Left 3 View XRAY; Complete Time: 15:01 kb 06/24 15:12 Order name: Knee Immobilizer; Complete Time: 15:22 tw2 Administered Medications: No medications were administered Disposition: 06/25 06:59 Co-signature as Attending Physician, Silvano Fernandez MD I agree with the assessment and hector plan of care. Disposition Summary: 06/24/21 15:16 Discharge Ordered Location: Home kb Condition: Stable kb Diagnosis - Fall on same level from slipping, tripping and stumbling without subsequent kb striking against object - Nondisplaced fracture of left patella kb - hematoma of forehead kb Followup: kb - With: Emergency Department - When: As needed - Reason: Worsening of condition Followup: kb - With: Private Physician - When: 2 - 3 days - Reason: Recheck today's complaints, Continuance of care, Re-evaluation by your physician Discharge Instructions: - Discharge Summary Sheet kb - Patellar Fracture, Adult kb - Fall Prevention in the Home, Adult, [id number] kb - Head Injury, Adult, [id number] kb Forms: - Medication Reconciliation Form kb - Thank You Letter kb - Antibiotic Education kb - Prescription Opioid Use kb Signatures: Dispatcher [employer] Latoya Sinha, NEGATIVE NOTCHER-C NEGATIVE NOTCHER-Silvano Fuentes MD MD cha Wise, Tara, RN RN tw2 Caitlin Montoya, RN RN jh5
--- NOTE | 2021-06-24 15:17 | ER ---
Nurse's Notes [facility] Name: Latisha Hernandez Age: 61 yrs Sex: Female : 1960 Arrival Date: 06/24/2021 Time: 14:07 Bed 16 Private MD: Diagnosis: Fall on same level from slipping, tripping and stumbling without subsequent striking against object;Nondisplaced fracture of left patella;hematoma of forehead Presentation: 06/24 14:09 Chief complaint: Patient states: Mechanical fall at [facility] within the hour; extensive jh5 medical hx (mentally handicap, brain bleed in December 2020)Pt baseline AAOX2. Coronavirus screen: Vaccine status: Patient reports receiving the 2nd dose of the covid vaccine. Client denies travel out of the [place] in the last 14 days. Ebola Screen: Patient negative for fever greater than or equal to 101.5 degrees Fahrenheit, and additional compatible Ebola Virus Disease symptoms Patient denies exposure to infectious person. Patient denies travel to an Ebola-affected area in the 21 days before illness onset. No symptoms or risks identified at this time. Initial Sepsis Screen: Does the patient meet any 2 criteria? No. Patient's initial sepsis screen is negative. Does the patient have a suspected source of infection? No. Patient's initial sepsis screen is negative. Risk Assessment: Do you want to hurt yourself or someone else? Patient reports no desire to harm self or others. Onset of symptoms was June 24, 2021. 14:09 Method Of Arrival: EMS: [facility] 14:09 Acuity: ANGEL 3 5 Triage Assessment: 14:14 General: Appears in no apparent distress. Behavior is calm, cooperative, appropriate [facility] for age. Pain: Complains of pain in face, left arm and left leg. Historical: - Allergies: 14:12 Morphine; "crazy"; [facility] 14:12 PENICILLINS; jh - Home Meds: 14:12 aripiprazole 2 mg Oral tab 1 tab nightly [Active]; atorvastatin 10 mg Oral tab 1 tab jh nightly [Active]; Humalog 100 unit/mL Sub-Q crtg 8 unit before meals [Active]; Lantus 15 units Sub-Q soln nightly [Active]; meloxicam 15 mg Oral tab 1 tab once daily [Active]; methocarbamol 500 mg Oral tab daily [Active]; mirtazapine 15 mg Oral TbDL 1 tab nightly [Active]; montelukast 10 mg Oral tab 1 tab once daily [Active]; venlafaxine 150 mg Oral cp24 once daily [Active]; omeprazole 40 mg Oral cpDR 1 cap once daily [Active]; - PMHx: 14:12 COPD; Diabetes - IDDM; GERD; Hypothyroidism; Hypertension; seasonal allergies; [facility] - Immunization history:: Adult Immunizations up to date. - Social history:: Smoking status: Patient denies any tobacco usage or history of. Screenin:15 Abuse screen: Denies threats or abuse. Denies injuries from another. Nutritional [facility] screening: No deficits noted. Tuberculosis screening: No symptoms or risk factors identified. Fall Risk None identified. Assessment: 14:48 Reassessment: Patient appears in no apparent distress at this time. Patient is alert, tw2 oriented x 3, equal unlabored respirations, skin warm/dry/pink. pt back from imaging at this time. 14:48 General: Appears in no apparent distress. well groomed, Behavior is calm, cooperative, tw2 appropriate for age. Pain: Complains of pain in forehead. Neuro: Level of Consciousness is awake, alert, obeys commands. Cardiovascular: Capillary refill < 3 seconds Patient's skin is warm and dry. Respiratory: Airway is patent Respiratory effort is even, unlabored, Respiratory pattern is regular, symmetrical. Musculoskeletal: Range of motion: intact in all extremities, swelling and bruising noted to LEFT knee and forehead on the left side with minor laceration noted. 15:11 Reassessment: provider at bedside with results at this time. tw2 15:38 Reassessment: Patient appears in no apparent distress at this time. Patient and/or tw2 family updated on plan of care and expected duration. Pain level reassessed. Vital Signs: 14:09 BP 128 / 68; Pulse 83; Resp 16; Temp 98.6; Pulse Ox 98% ; Weight 68.04 kg; Height 5 ft. [facility] 4 in. (162.56 cm); 14:25 Temp 98.6(O); tw2 14:09 Body Mass Index 25.75 (68.04 kg, 162.56 cm) [facility] ED Course: 14:07 Patient arrived in ED. 5 14:07 Bed in low position. Call light in reach. Side rails up X2. Adult w/ patient. Pulse ox tw2 on. NIBP on. Warm blanket given. 14:09 Caitlin Montoya, RN is Primary Nurse. [facility] 14:10 Lat[facility] Kirk F[facility]-C [facility] kb 14:11 Silvano Fernandez MD is Attending Physician. kb 14:12 Triage completed. 5 14:16 Arm band placed on right wrist. jh5 14:40 CT Head C Spine In Process Unspecified. EDMS 14:48 Knee Left 3 View XRAY In Process Unspecified. EDMS 15:11 No provider procedures requiring assistance completed. Patient did not have IV access tw2 during this emergency room visit. Administered Medications: No medications were administered Outcome: 15:16 Discharge ordered by . kb 15:37 Discharged to home via wheelchair, with family. tw2 15:37 Condition: stable 15:37 Discharge instructions given to patient, family, Instructed on discharge instructions, follow up and referral plans. Demonstrated understanding of instructions, follow-up care. 15:38 Patient left the ED. tw2 Signatures: Dispatcher [employer] EDMS Latoya Kirk FNP-C FNP-Ckb Wise, Tara RN RN tw2 Caitlin Montoya, RN RN [facility]
[2021-06-24 15:49] VITALS: BP 128/68; TEMP 98.6; O2SAT 98
== END 2021-06-24 15:38 | disposition home or self-care (01) ==
LOC: ER 13:59
DX: S82.002A Unspecified fracture of left patella, initial encounter for closed fracture (principal); S00.83XA Contusion of other part of head, initial encounter; W01.0XXA Fall on same level from slipping, tripping and stumbling without subsequent striking against object, initial encounter; I10 Essential (primary) hypertension; E11.9 Type 2 diabetes mellitus without complications; J44.9 Chronic obstructive pulmonary disease, unspecified; Z79.4 Long term (current) use of insulin; Z88.0 Allergy status to penicillin; Z88.5 Allergy status to narcotic agent
CPT/HCPCS: 70450; 72125; 99283

== ENCOUNTER 2021-07-03 06:10 | Day surgery (SDC) | payer OTHER ==
[2021-07-03] MEDS ORDERED: propofoL 200 MG/20 ML VIAL IV ONE (06:31)
[2021-07-03] MEDS ORDERED: MIDAZOLAM HCL 2 MG/2 ML INJ ONE (06:32)
[2021-07-03] MEDS ORDERED: dexAMETHasone 10 MG/ML VIAL ONE (06:32)
[2021-07-03] MEDS ORDERED: LIDOCAINE 1% MPF 5 ML VIAL ONE ×2 (06:32→07:39)
[2021-07-03] MEDS ORDERED: FENTANYL CITR 250 MCG/5 ML ONE (06:32)
[2021-07-03] MEDS ORDERED: KETOROLAC 30 MG/ML INJ ONE (06:32)
[2021-07-03] MEDS ORDERED: ONDANSETRON 4 MG/2 ML VIAL ONE (06:33)
[2021-07-03] MEDS ORDERED: ROCURONIUM 50 MG/5 ML VIAL IV ONE (06:33)
[2021-07-03] MEDS ORDERED: KETAMINE HCL 500 MG/5 ML VIAL ONE (06:38)
[2021-07-03 07:05] LABS: Urine Appearance TURBID (Clear); Urine Bilirubin NEGATIVE (Negative); Urine Blood 3+ (Negative); Urine Color YELLOW (Yellow); Urine Glucose NEGATIVE (Negative); Urine Protein 2+ (Negative); Urine Specific Gravity 1.025 (1.005-1.030); Urine Urobilinogen 0.2 mg/dL (0.2-1.0)
[2021-07-03] MEDS ORDERED: BUPIVACAINE 0.75% (PF) 2 ML SP ONE (07:32)
[2021-07-03 07:36] LABS: Absolute Lymphocytes (CBC) 1.2 K/uL (0.7-4.9); Basophils % 1.3 % (0-1.3); Hematocrit 36.7 % (36.0-45.0); Lymphocytes % 19.8 % (15.3-44.8); RBC Red Blood Cell Count 4.23 M/uL (3.86-4.86)
[2021-07-03 07:42] LABS: Protime INR 1.09
[2021-07-03] MEDS ORDERED: NA CHLORIDE 0.9% 1,000 ML ONE ×2 (07:51→09:33)
[2021-07-03] MEDS ORDERED: AMPICILLIN SODIUM 2 GM in NA CHLORIDE 0.9% 100 ML IVPB ONE (08:00)
[2021-07-03] MEDS ORDERED: Gentamicin Inj 140 MG in NA CHLORIDE 0.9% 100 ML IVPB ONE (08:00)
[2021-07-03] MEDS ORDERED: Phenylephrine HCl 10 MG/ML 1 ML VIAL ONE (08:17)
[2021-07-03] MEDS ORDERED: NS 0.9% VIAL 10 ML ONE (08:17)
[2021-07-03 08:33] LABS: Urine Microscopic Reflex ORDER UMIC
[2021-07-03 08:35] LABS: Urine Bacteria >50 /HPF (<20); Urine RBC >50 /HPF (NONE SEEN); Urine White Blood Cell Casts 0-5 /LPF (NONE SEEN)
[2021-07-03] MEDS ORDERED: PHENAZOPYRIDINE 100MG TAB PO ONE ×2 (08:52→10:31)
[2021-07-03] MEDS ORDERED: CODEINE 30MG/APAP 300MG TAB PO PRN (08:52)
[2021-07-03] MEDS ORDERED: CLINDAMYCIN 600MG/D5W 600 MG/50 ML BAG IV ONE (09:00)
--- NOTE | 2021-07-03 09:55 | RAD REPORT ---
EXAM DESCRIPTION: RAD - Urethrocystogrphy Retrograde - 07/03/2021 9:48 am CLINICAL HISTORY: URETEROSCOPY STENT EXCHANGE COMPARISON: PELVIS dated 11/29/2007; Stone Protocol dated 04/30/2021 FINDINGS/IMPRESSION: Nine intraoperative fluoroscopic images were submitted. The first image shows a ureteral stent overlying the right renal collecting system/proximal ureter. Subsequent guidewire shad cement performed. The final images shows the successful exchange of a right ureteral stent with proxi mal aspect in a superior pole calyx. Fluoro time: 12 seconds
[2021-07-03 10:48] LABS: Potassium 4.3 mmol/L (3.5-5.1)
[2021-07-03 10:59] VITALS: BP 131/65; TEMP 97.1; O2SAT 96
--- NOTE | 2021-07-03 13:24 | OP ---
Surgeon: SIERRA GRIFFIN Preoperative Diagnoses: 1.Right ureteral obstruction. 2.Right 3 mm ureterolithiasis. Postoperative Diagnosis: Right proximal ureteral obstructing mass/lesion. Principle Procedures: 1.Cystoscopy. 2.Right retrograde pyelography. 3.Right ureteroscopy with Piranha ureteroscopic biopsy. 4.Right ureteral stent exchange. Indication For Procedure: Ms. Hernandez was seen in Oral with a presumptive 3 mm obstructing ureteral calculus. A stent was placed emergently at that time and she presented to me for followup. Subsequ ent CT evaluation performed locally could not confirm the presence of a stone alongside the stent, an d to my review of the imaging, no additional calculi were noted within the intrarenal calices or pelv is. The left kidney was noted to be pelvic in location without hydronephrosis. As a result, given t he limitation of CT and identifying a 3 mm stone along the stent, I recommended definitive ureterosco pic evaluation. Of note, in the antrum, the patient suffered a fall where she fractured her kneecap on her left side. This delayed her presentation for surgery until today. Procedure In Detail: The patient was consented in the preoperative holding area before being transfe rred to operative suite where general anesthesia was induced. She was given clindamycin 600 mg becau se of a reported allergy to penicillin, not present in the outpatient records. Gentamicin was provid ed also. She was given pneumo boots on the right lower extremity for DVT prophylaxis. She was place d in the lithotomy position with the left leg, which was in a brace because of the kneecap, that was left in the straight extended position and simply elevated and slightly lateralized. The right leg w as placed in a traditional flexed leg position using the [place] stirrups. Her genitalia were prep ped using Hibiclens and she was draped in standard fashion. The case was begun using a 22-Bermudian rig id cystoscope to traverse the urethra and into the bladder. The bladder was decompressed of fluid an d urine, and then surveyed in its entirety. The stent was noted to emanate from the right ureteral o rifice. The ureteral orifices were otherwise orthotopic in location. The remainder of the bladder w as free of mucosal lesion, foreign body or stones throughout. I thus grasped the right ureteral sten t and delivered it to the meatus. With the proximal end of the stent still in the proximal ureter, I then passed a Sensor wire via the stent into the putative collecting system where a coil was observe d fluoroscopically. I then removed the stent and performed direct vision semi-rigid ureteroscopy lanie ngside the indwelling safety wire. I was able to navigate the ureteroscope under pressurized normal saline irrigation into the mid and proximal ureter where an obstructing soft appearing mass lesion wa s noted to be mostly obstructing the lumen. The wire was able to emanate via a tract in the inferior lateral, approximately 7 or 8 o'clock position in the ureter to enter the renal pelvis, which was co nfirmed fluoroscopically by the prior injection of 70:30 mixture of Omnipaque and saline, which was i njected via a 5-Bermudian ureteral access catheter that had been placed over the wire after its initial placement via the indwelling ureteral stent. This was the right retrograde pyelogram that was perfor med and did delineate the calices appropriately without any intrarenal filling defects noted. Becaus e the 5-Bermudian ureteral access catheter was in the renal pelvis at the time, no aspects of the ureter were delineated. So back to the semi-rigid ureteroscopy where the mass lesion was identified, I att empted to navigate along the Sensor wire via the space that was within the orthotopic ureter to visua lize above the mass lesion that was seen, but it would not allow passage of the ureteroscope. As a r esult, I employed a Ivanha ureteroscopic biopsy forceps to take 3 separate biopsies of this lesion a nd sent it for pathologic analysis. After the biopsies were completed, I then reassessed attempting to utilize a second BlastRootsson guidewire as railroad tracks to navigate the ureteroscope beyond the poin t of obstruction, but ureteroscope would not pass. As a result, I removed the ureteral scope and magdalene k-loaded the cystoscope over the indwelling safety wire. I then passed a 6-Bermudian by 24 cm double-J right ureteral stent into her renal pelvis with a coil observed fluoroscopically there and 1 cystosco pically formed in her bladder. I then decompressed her bladder of fluid and urine, and the patient w as taken out of the lithotomy position. She was then awakened from general anesthesia, transferred t o a stretcher, and then transferred to the recovery room in good condition. Of note, at the initiation of the case, the anesthesiologist and LUBRICATING MACHINE TENDER did attempt to place spinal ane sthesia as had been recommended preoperatively by her primary care physician; however, due to severe spinal stenosis, they were unable to properly access the spinal fluid in order to perform the spinal anesthetic. As a result, the patient was given general anesthesia where she was able to respire norm ally throughout the entirety of the case. Complications: None. Discharge Disposition: I counseled the patient's family about the biopsy and the need to follow up t o discuss the results of that biopsy in about 2 weeks' time. This would dictate subsequent managemen t where if malignancy is identified, treatment of that would be required, and this would explain pote ntially the lack of visible calculus observed on most recent CT scan. However, if no malignancy is i dentified and this was simply a reactive tissue, it is possible that a stone yet persists behind or b uried within this reactive tissue. In that case, further laser lithotripsy evaluations and possible ureteroscopic dilation will be required to manage. DAVID/SANTOS Voice ID: [id number] Report ID: [id number]
== END 2021-07-03 11:25 | disposition home or self-care (01) ==
LOC: OR 06:10
PROVIDERS: ATTEND Urology
PROC: 0T768DZ Dilation of Right Ureter with Intraluminal Device, Via Natural or Artificial Opening Endoscopic (ICD-10-PCS; 2021-07-03)
PROC: 0TB68ZX Excision of Right Ureter, Via Natural or Artificial Opening Endoscopic, Diagnostic (ICD-10-PCS; principal; 2021-07-03 07:30)
DX: N20.1 Calculus of ureter (principal); Z20.822 Contact with and (suspected) exposure to COVID-19
CPT/HCPCS: 87088; 85025; 87086; 80048; 36415; 85610; 82947 ×2; 88305; 85730; 74450; 51610; 52354; 52332; U0003; J2704; J2370; J1580; J7030 ×2; 81003; 81015; J0290; J1100; J2250; J2405; J3010

== ENCOUNTER 2021-07-30 07:44 | Day surgery (SDC) | payer OTHER ==
[2021-07-26 17:20] LABS: Protime INR 0.97
[2021-07-26 17:27] LABS: Potassium 4.6 mmol/L (3.5-5.1)
[~2021-07-30 07:44] MED LIST: CLINDAMYCIN INJ 600 MG in NA CHLORIDE 0.9% 50 ML IV SCH; Gentamicin Inj 120 MG in NA CHLORIDE 0.9% 100 ML IV SCH
[2021-07-30] MEDS ORDERED: CEFAZOLIN/SWI 2gm 0 GM/0 ML SYR ONE (08:01)
[2021-07-30] MEDS ORDERED: NA CHLORIDE 0.9% 1,000 ML ONE (08:01)
[2021-07-30] MEDS ORDERED: ALBUTEROL 2.5 MG/3 ML NEB SOL ONE (08:32)
[2021-07-30] MEDS ORDERED: LIDOCAINE 2% MPF 5 ML VIAL ONE (08:41)
[2021-07-30] MEDS ORDERED: FENTANYL CITR 100 MCG/2 ML ONE (08:41)
[2021-07-30] MEDS ORDERED: MIDAZOLAM HCL 2 MG/2 ML INJ ONE (08:41)
[2021-07-30] MEDS ORDERED: propofoL 200 MG/20 ML VIAL IV ONE (08:41)
[2021-07-30] MEDS ORDERED: ONDANSETRON 4 MG/2 ML VIAL ONE (08:42)
[2021-07-30] MEDS ORDERED: dexAMETHasone 10 MG/ML VIAL ONE (09:18)
[2021-07-30] MEDS ORDERED: CODEINE 30MG/APAP 300MG TAB PO PRN (09:34)
[2021-07-30] MEDS ORDERED: PHENAZOPYRIDINE 100MG TAB PO ONE ×2 (09:34→11:38)
[2021-07-30] MEDS ORDERED: EPHEDRINE SULF 50 MG/ML VIAL ONE (09:45)
[2021-07-30 10:52] VITALS: TEMP 97.5
--- NOTE | 2021-07-30 11:26 | RAD REPORT ---
EXAM DESCRIPTION: RAD - Urethrocystogrphy Retrograde - 07/30/2021 11:10 am CLINICAL HISTORY: RT STENT COMPARISON: Urethrocystogrphy Retrograde dated 07/03/2021 FINDINGS: No fluoroscopic spot images submitted. Total fluoro time: 0.13 minutes.
[2021-07-30 11:33] VITALS: BP 122/46; O2SAT 95
--- NOTE | 2021-07-30 14:08 | OP ---
Surgeon: SIERRA GRIFFIN Preoperative Diagnoses: 1.Right hydronephrosis. 2.Suspected right proximal ureteral stricture. Postoperative Diagnoses: 1.Right hydronephrosis. 2.Right proximal ureteral tumor. 3.Right upper tract urothelial carcinoma. Principal Procedures: 1.Right ureteroscopy. 2.Right ureteroscopic biopsy. 3.Right retrograde pyelography. 4.Right ureteral stent exchange. Indication For Procedure: Ms. Hernandez is a 61-year-old woman with insulin-dependent diabetes, COPD, hy pothyroidism, GERD, and chronic pain requiring nasal cannula oxygen at home, who had evidence of righ t proximal ureteral obstruction in the absence of visible calculus seen on CT and prior evaluation wi th biopsy suggestive of only atypical cells without definitive tumor seen. She presents today for re peat evaluation, possible incision of the stricture and dilation, with possible repeat ureteroscopic biopsy. Procedure In Detail: The patient was consented in the preoperative holding area before being transfe rred to the operative suite where general anesthesia was induced. She was given clindamycin 600 mg a nd gentamicin 120 mg IV antimicrobial prophylaxis. Pneumo boots were provided for DVT prophylaxis. She was placed in the lithotomy position, padded and secured to the table appropriately. Her genital ia were prepped using Hibiclens and draped in standard fashion. The case was begun using a 22-Togolese rigid cystoscope to traverse the urethra and into the bladder. The bladder was decompressed of urin e and the stent was grasped by its coil and delivered via the meatus with ease. Fluoroscopic guidanc e was then used to pass a Sensor wire via the stent into the putative renal pelvis. I then placed a dual-lumen catheter over the Sensor wire in order to perform a retrograde pyelogram study. Right retrograde pyelography: Using a 70:30 mixture of Omnipaque and saline, the dual-lumen catheter, which was in the proximal ure ter just distal to the UPJ, did delineate the renal pelvis and calices without significant hydronephr osis at this time. I then backed the dual-lumen catheter into the mid ureter and again injected cont rast revealing a very irregular proximal ureteral lumen with filling defect occupying the proximal ur eter for several cm. The renal pelvis and calices themselves were without filling defect. I thus re moved the dual lumen catheter and used a semi-rigid ureteroscope to navigate up the ureter under dire ct vision to the point of the obstruction, which was observed at the body of L5. There. I was able t o pass the initial point of apparent strictured obstruction and observed a papillary appearing tumor emanating within the proximal ureteral lumen. As a result, I employed the Jose biopsy forceps via the semi-rigid ureteroscope to take 4 different biopsies of tissue from the papillary tumor seen. T hese were sent for pathologic analysis. As a result, because of the high suspicion that this represe nt a tumor, I elected not to incise the stricture region and simply backloaded the cystoscope over e indwelling safety wire and passed the 6-Togolese x 24 cm double-J right ureteral stent with a coil ob served fluoroscopically within the renal pelvis and 1 cystoscopically formed in the bladder. I then decompressed her bladder of fluid and urine, and the patient was taken out of lithotomy position. chelsey was then awakened from general anesthesia, transferred to a stretcher, and then transferred to the recovery room in good condition. Complications: None. Discharge Disposition: We will await the results of the pathology, but independent of those results, I think she would benefit from intravesical chemotherapy with reflux up the stent to treat the proxi mal upper tract urothelial carcinoma. Alternatively, a percutaneous nephrostomy tube could be placed for direct instillation renally, which may be more effective, especially since she is likely to be incontinent and may not be able to hold the chemotherapy sufficiently forward to reflux up the stent. DAVID/SANTOS Voice ID: [id number] Report ID: [id number]
== END 2021-07-30 11:55 | disposition home or self-care (01) ==
LOC: OR 07:44
PROVIDERS: ATTEND Urology
PROC: 0T768DZ Dilation of Right Ureter with Intraluminal Device, Via Natural or Artificial Opening Endoscopic (ICD-10-PCS; 2021-07-30)
PROC: 0TB68ZX Excision of Right Ureter, Via Natural or Artificial Opening Endoscopic, Diagnostic (ICD-10-PCS; principal; 2021-07-30 09:00)
DX: C68.8 Malignant neoplasm of overlapping sites of urinary organs (principal); D09.19 Carcinoma in situ of other urinary organs; N20.1 Calculus of ureter; N13.5 Crossing vessel and stricture of ureter without hydronephrosis; Z20.822 Contact with and (suspected) exposure to COVID-19
CPT/HCPCS: 52354; 52332; 87088; 87086; 80048; 36415; 85610; 82947; 88305; 85730; 74450; 51610; U0003; J2704; J1580; J2250; J3010; J1100; J7030; J2405; J0690

== ENCOUNTER 2021-10-08 14:05 | Inpatient (IN) | payer OTHER ==
--- OUTSIDE RECORDS SUMMARY | 2021-10-08 14:08 | XMS REPORT | Continuity of Care Document ---
:1960 Author Organization [facility] t Address [address] [place] [address] Dr. Goodwin. [address] [place] [address] Care Team Providers Name Role Phone Pcp, Does Not Have A Primary Care Physician Kevin Attending Clinician Unavailable Ricardo GA Attending Clinician Unavailable ELIAS Attending Clinician Unavailable Neftali BECKFORD L Attending Clinician Bella GREGORY Attending Clinician Unavailable Svetlana GARCIAS S Attending Clinician Doctor Unassigned, Name Attending Clinician Unavailable PEYTON Attending Clinician Unavailable ELIAS Admitting Clinician Unavailable MANUELA LUCIANO Admitting Clinician Unavailable Payers Payer Name Policy Type Policy Number Effective Date Expiration Date Bella rodriguez MEDICARE PART A [id number] 1998 2024 AND B 00:00:00 00:00:00 MEDICARE A B [id number] 1998 00:00:00 [place]ID [place] [id number] 1999 00:00:00 [place] [id number] Problems Condition Condition Condition Status Onset Resolution Last Treating Co mments Source Name Details Category Date Date Treatment Clinician Date No known No known Disease Unive rs active active ity of problems problems [facility] Allergies, Adverse Reactions, Alerts Allergy Allergy Status Severity Reaction(s) Onset Inactive Treating Comm ents Source Name Type Date Date Clinician MORPHINE [facility] [place] Allergy Active Low Rash [facility] NO KNOWN Drug Active [facility] ALLERGIE Class ity of S [facility] Social History Social Habit Start Date Stop Date Quantity Comments Source Exposure to Not sure [facility] SARS-CoV-2 (event) Medica l Branch Tobacco use and 2021-07-25 2021-07-25 Never used [facility] exposure 00:00:00 00:00:00 [facility] Sex Assigned At [birth year] [facility] 00:00:00 00:00:00 Medical Branch Smoking Status Start Date Stop Date Source Unknown if ever smoked [facility] Medications Ordered Filled Start Stop Current Ordering Indication Dosage Frequency Signature Comments Components Source Medication Medication Date Date Medication? Clinician (SIG) Name Name No known No [facility] medications -06 ity of 10:38: [address] No known No Univers medications - ity of 10:38: [address] Vital Signs Vital Name Observation Time Observation Value Comments Source HEIGHT 2021-10-07 14:28:00 149.9 cm WEIGHT 2021-10-07 14:28:00 61.236 kg HEIGHT 2021-10-07 14:28:00 149.9 cm WEIGHT 2021-10-07 14:28:00 61.236 kg Systolic blood 2021-07-25 16:54:00 144 mm[Hg] [facility] Diastolic blood 2021-07-25 16:54:00 72 mm[Hg] [facility] Heart rate 2021-07-25 16:54:00 97 /min [facility] Body height 2021-07-25 16:51:00 149.9 cm [facility] Body weight 2021-07-25 16:51:00 60.102 kg [facility] BMI 2021-07-25 16:51:00 26.76 kg/m2 [facility] Oxygen saturation 2021-07-25 16:51:00 98 /min [facility] in Arterial blood Medical Br anch by Pulse oximetry Procedures Procedure Date / Time Performed Performing Clinician [facility] e REFERRAL- 2021-07-08 06:01:00 Doctor Unassigned, No [facility]is[facility] REQUEST/RESPONSE Name Medical Branch Encounters Start End Encounter Admission Attending Care Care Encounter Source Date/Time Date/Time Type Type Clinicians Facility Department ID 2021-09-12 Outpatient Kevin STMARGY [facility] [id number] 08[facility] 2021-08-14 Outpatient Kevin, [facility] [id number] 14:28[facility]00 Shad [id number] [facility] 2021-08-14 Outpatient Kevin, [facility] [id number] 13:49:49 Shad [id number] [facility] 2021-08-14 Outpatient Kevin, [facility] [id number] 13:42:24 Shad [id number] [facility] 2021-03-01 Outpatient [facility] [id number] [place] 01:03:54 [facility] 2021-10-07 2021-10-07 [facility] [id number] [facility] 00:00:00 21:05:00 [place] 2021-07-25 2021-07-25 [facility] [id number] Univers 11:13:13 23:59:00 [facility] [employer] [id number] jaida [facility] [id number] [place] AFIA?BLEA [phone] [place] [id number] [facility] 2021-07-25 2021-07-25 Outpatient Stevenson GREGORY [facility] [id number] Univers 10:30:00 11:32:38 WILLOW sena [facility] 2021-07-25 2021-07-25 [facility] [id number] Univers 10:30:00 11:00:00 Visit Willow [facility] [id number] it alex [facility] [id number] [place] AFIA?BLEA [id number] Wy brayan ARCEO [address] [place] [facility] 2021-07-08 2021-07-08 Orders Doctor GABRIELA [id number] Univers 00:00:00 00:00:00 Only Unassigned, RHETT [id number] ity of [facility] [id number] [place] [id number] [facility] [address] [place] 2021-01-27 2021-01-31 Inpatient E PEYTON, [facility] 7[address] [facility] 04:41:00 10:53:00 SANDRA Results Test Description Test Time Test Comments Results Result Comments Source PROTHROMBIN TIME/INR 2021-10-07 12:13:07 Test Item Value Reference Range Interpretation Comme nts PROTIME (BEAKER) (test code 13.2 seconds 11.9-14.2 = 759) INR (BEAKER) (test code = 1.02 See_Comment [ Automated message] The TwitChat system which ge nerated this result transmit tomas reference range: <=5.90. The reference range was not u sed to interpret this result as normal/abnormal . RECOMMENDED COUMADIN/WARFARIN INR THERAPY RANGESSTANDARD DOSE: 2.0 - 3.0 Includes: PROPHYLAXIS forvenous thrombosis, systemic embolization; TREATMENT for venous thrombosis and/or pulmonary embolus.HIGH RISK: Target INR is 2.5-3.5 for patients with mechanical heart valves.CBC W/PLT COUNT & AUTO DIFFERENTIAL 2021-10-07 11:56:24 Test Item Value Reference Range Interpretation Comments WHITE BLOOD CELL COUNT (BEAKER) 4.1 K/ L 3.5-10.5 (test code = 775) RED BLOOD CELL COUNT (BEAKER) 3.72 M/ L 3.93-5.22 L (test code = 761) HEMOGLOBIN (BEAKER) (test code = 10.5 GM/DL 11.2-15.7 L 410) HEMATOCRIT (BEAKER) (test code = 33.2 % 34.1-44.9 L 411) MEAN CORPUSCULAR VOLUME (BEAKER) 89.2 fL 79.4-94.8 (test code = 753) MEAN CORPUSCULAR HEMOGLOBIN 28.2 pg 25.6-32.2 (BEAKER) (test code = 751) MEAN CORPUSCULAR HEMOGLOBIN CONC 31.6 GM/DL 32.2-35.5 L (BEAKER) (test code = 752) RED CELL DISTRIBUTION WIDTH 13.9 % 11.7-14.4 (BEAKER) (test code = 412) PLATELET COUNT (BEAKER) (test 113 K/CU MM 150-450 L code = 756) MEAN PLATELET VOLUME (BEAKER) 8.8 fL 9.4-12.3 L (test code = 754) NUCLEATED RED BLOOD CELLS 0 /100 WBC 0-0 (BEAKER) (test code = 413) NEUTROPHILS RELATIVE PERCENT 53 % (BEAKER) (test code = 429) LYMPHOCYTES RELATIVE PERCENT 39 % (BEAKER) (test code = 430) MONOCYTES RELATIVE PERCENT 6 % (BEAKER) (test code = 431) EOSINOPHILS RELATIVE PERCENT 1 % (BEAKER) (test code = 432) BASOPHILS RELATIVE PERCENT 1 % (BEAKER) (test code = 437) NEUTROPHILS ABSOLUTE COUNT 2.18 K/ L 1.56-6.13 (BEAKER) (test code = 670) LYMPHOCYTES ABSOLUTE COUNT 1.59 K/ L 1.18-3.74 (BEAKER) (test code = 414) MONOCYTES ABSOLUTE COUNT (BEAKER) 0.26 K/ L 0.24-0.36 (test code = 415) EOSINOPHILS ABSOLUTE COUNT 0.02 K/ L 0.04-0.36 L (BEAKER) (test code = 416) BASOPHILS ABSOLUTE COUNT (BEAKER) 0.02 K/ L 0.01-0.08 (test code = 417) IMMATURE GRANULOCYTES-RELATIVE 1 % 0-1 PERCENT (BEAKER) (test code = 6468)
--- NOTE | 2021-10-08 14:23 | ER ---
Nurse's Notes [facility] Name: Latisha Hernandez Age: 61 yrs Sex: Female : 1960 Arrival Date: 10/08/2021 Time: 14:06 Bed 6 Private MD: Diagnosis: Sepsis, unspecified organism;UTI/ Urinary tract infection, site not specified;Altered mental status, unspecified Presentation: 10/08 14:25 Chief complaint: Pt came over from same day surgery after they noticed that pt had an [facility] elevated hr and slightly elevated temp, Nursing staff stated that ileostomy was placed yesterday. Coronavirus screen: Vaccine status: Patient reports receiving the 2nd dose of the covid vaccine. Ebola Screen: Patient negative for fever greater than or equal to 101.5 degrees Fahrenheit, and additional compatible Ebola Virus Disease symptoms Patient denies exposure to infectious person. Patient denies travel to an Ebola-affected area in the 21 days before illness onset. Initial Sepsis Screen: Does the patient meet any 2 criteria? HR > 90 bpm. Does the patient have a suspected source of infection? Yes: Dysuria/Frequency/Urgency/UTI. Risk Assessment: Do you want to hurt yourself or someone else? Patient reports no desire to harm self or others. Onset of symptoms was October 08, 2021. 14:25 Method Of Arrival: Stretcher [facility] 14:25 Acuity: ANGEL 2 [facility] Triage Assessment: 14:29 General: Appears ill. [facility] Historical: - Allergies: 14:30 Morphine; "crazy"; [facility] 14:30 PENICILLINS; [facility] - Home Meds: 14:30 aripiprazole 2 mg Oral tab 1 tab nightly [Active]; [facility] - PMHx: 14:30 COPD; GERD; Diabetes - IDDM; Hypertension; Hypothyroidism; seasonal allergies; Angina [facility] pectoris; - Immunization history:: Client reports receiving the 2nd dose of the Covid vaccine. - Family history:: not pertinent. - Social history:: Smoking status: Patient denies any tobacco usage or history of. - Hospitalizations: : Patient was recently seen at. Screenin:21 Abuse screen: Denies threats or abuse. Denies injuries from another. Nutritional jg9 screening: No deficits noted. Tuberculosis screening: No symptoms or risk factors identified. 14:29 Fall Risk Fall in past 12 months (25 points). Secondary diagnosis (15 points) impaired jh6 mobility, IV access (20 points). Ambulatory Aid- None/Bed Rest/Nurse Assist (0 pts). Assessment: 14:23 General: Appears uncomfortable, ill, Behavior is calm, drowsy. Pain: Denies pain. jh6 Neuro: Oriented to person. 15:30 Reassessment: No changes from previously documented assessment. Patient and/or family jh6 updated on plan of care and expected duration. Pain level reassessed. advised pt that i spoke with her sister and that she was on her way once she gets clothes to stay the night with her. Pt complains of generalized pain after procedure yesterday. 16:30 Reassessment: lab called reporting that pts BS is 36. pt alert with tactile stimuli but jh6 drowsy. repeat of bedside BS read low and MD notified. meds ordered and pt alert to give oral glucose. 17:45 Reassessment: Patient and/or family updated on plan of care and expected duration. Pain jh6 level reassessed. Patient is alert, oriented x 3, equal unlabored respirations, skin warm/dry/pink. BS 155 and pt drowsy but states that she's feeling ok. states that she is not hungry at this time but sister, how is at bedside states that she has not had anything to eat today. Vital Signs: 14:00 BP 131 / 102; Pulse 139; Resp 14 S; Pulse Ox 97% ; jg9 15:05 BP 130 / 77; Pulse 127; Resp 20; Pulse Ox 99% ; Pain 4/10; jh6 16:30 BP 133 / 72; Pulse 120; Resp 15 S; Pulse Ox 97% on 2 lpm NC; jg9 17:46 BP 117 / 68; Pulse 117; Resp 18; Pulse Ox 100% ; jh6 Vitals: 15:05 Cardiac Rhythm Assessment Sinus tach. 6 ED Course: 14:06 Patient arrived in ED. iw 14:10 Jesús Leon MD is Attending Physician. rn 14:10 Placed in gown. Bed in low position. Call light in reach. Side rails up X2. [facility] 14:13 Carol Zayas, CAROL is Primary Nurse. j9 14:14 COVID-19/FLU A+B (Document "Date of Onset" if Symptomatic) Sent. jg9 14:21 No apparent distress. Resting quietly. jg9 14:22 Shad Brown MD is Hospitalizing Provider. rn 14:24 Maintain EMS IV. Dressing intact. Good blood return noted. Site clean \\T\\ dry. Gauge \\T\\ 6 site: 20g iv to l ac started by nursing staff in same day surgery.. 14:29 Triage completed. 6 14:29 Arm band placed on right wrist. jh6 15:34 Inserted saline lock: 22 gauge in right forearm, using aseptic technique. 6 Administered Medications: 14:48 Drug: NS 0.9% 1000 ml Route: IV; Rate: 1000 ml; Site: left antecubital; jh6 15:38 Drug: NS 0.9% 1000 ml Route: IV; Rate: 1000 ml; Site: right forearm; jh6 16:55 Drug: Oral Gel Gel 10 % 15 grams Route: Mucous Membrane; jg9 17:00 Drug: Dextrose 10 % in Water 500 ml Route: IV; Rate: bolus; Site: right antecubital; jg9 17:01 CANCELLED (not availablee): D50W 50 ml IVP once; (1 amp) jg9 17:01 CANCELLED (wrong orderr): D5-NS 1000 ml IV at 125 ml/hr continuous jg9 Outcome: 14:22 Decision to Hospitalize by Provider. rn 17:58 Patient left the ED. iw Signatures: Alessia Huertas RN CAROL Jesús Leon MD MD rn Hastedt, Jennifer, RN RN jh Carol Zayas RN RN jg9 Corrections: (The following items were deleted from the chart) 14:18 14:17 Hospitalizations: No recent hospitalization is reported. rn rn
--- NOTE | 2021-10-08 14:24 | EDPHYS ---
Physician Documentation [facility] Name: Latisha Hernandez Age: 61 yrs Sex: Female : 1960 Arrival Date: 10/08/2021 Time: 14:06 Bed 6 Private MD: ED Physician Jesús Leon HPI: 10/08 14:14 This 61 yrs old Female presents to ER via Unassigned with complaints of AMS, possible rn sepsis. 14:14 The patient presents with decreased responsiveness. Onset: The symptoms/episode rn began/occurred at an unknown time. Possible causes: sepsis, unknown. Associated signs and symptoms: Pertinent positives: confusion, Pertinent negatives: abdominal pain, chest pain, headache, seizure, shortness of breath, vomiting. Current symptoms: In the emergency department the patient's symptoms are unchanged from the initial presentation. It is unknown whether or not the patient has had similar symptoms in the past. The patient has been recently seen by a physician:. Pt was here getting bladder chemo treatment that she has had before, prior to administering treatment, she was noted by nursing to "not appear herself", was tachycardic, and seemed confused. Patient was evaluated by Dr. Nogueira who ordered urine and blood tests as well as dose of IV cefepime, plan was to admit to Dr. Brown, who requested patient be sent to ER for further evaluation. Pt denies cough/chest pain/abd pain/vomiting/diarrhea. Urine already shows nitrate positive, loaded bacteria and WBC, and abx hanging. . Historical: - Allergies: 14:30 Morphine; "crazy"; [facility] 14:30 PENICILLINS; [facility] - Home Meds: 14:30 aripiprazole 2 mg Oral tab 1 tab nightly [Active]; jh6 - PMHx: 14:30 COPD; GERD; Diabetes - IDDM; Hypertension; Hypothyroidism; seasonal allergies; Angina jh6 pectoris; - Immunization history:: Client reports receiving the 2nd dose of the Covid vaccine. - Family history:: not pertinent. - Social history:: Smoking status: Patient denies any tobacco usage or history of. - Hospitalizations: : Patient was recently seen at. ROS: 14:17 Constitutional: + chills, no fever Eyes: Negative for injury, pain, redness, and maintenance journeyman, ENT: Negative for injury, pain, and discharge, Cardiovascular: Negative for chest pain, palpitations, and edema, Respiratory: Negative for shortness of breath, cough, wheezing, and pleuritic chest pain, Abdomen/GI: + nausea, no vomiting or abd pain : Negative for injury MS/Extremity: Negative for injury and deformity, Skin: Negative for injury, rash, and discoloration, Neuro: Negative for headache, numbness, tingling, and seizure, + generalized weakness Exam: 14:17 Constitutional: Patient slow to respond, but awakens easily to voice and tactile rn stimulation, shaking with chills/rigors. Head/Face: Normocephalic, atraumatic. Eyes: Periorbital areas with no swelling, redness, or edema. ENT: dry MM Cardiovascular: Tachycardic, regular Respiratory: Mild tachypnea, no retractions Abdomen/GI: Soft, non-tender Back: + right nephrostomy tube without swelling/drainage/erythema. Skin: Warm, dry MS/ Extremity: Pulses equal, no cyanosis. Neuro: Awake and alert, GCS 15, oriented to person, place, not time. Motor strength 4/5 in all extremities. Sensory grossly intact. Vital Signs: 14:00 BP 131 / 102; Pulse 139; Resp 14 S; Pulse Ox 97% ; jg9 15:05 BP 130 / 77; Pulse 127; Resp 20; Pulse Ox 99% ; Pain 4/10; jh6 16:30 BP 133 / 72; Pulse 120; Resp 15 S; Pulse Ox 97% on 2 lpm NC; jg9 17:46 BP 117 / 68; Pulse 117; Resp 18; Pulse Ox 100% ; jh6 MDM: 14:11 Patient medically screened. rn 14:17 Differential Diagnosis: electrolyte abnormality, hypoglycemia, sepsis, UTI, volume rn depletion. Data reviewed: vital signs, nurses notes, lab test result(s), and as a result, I will admit patient. Counseling: I had a detailed discussion with the patient and/or guardian regarding: the historical points, exam findings, and any diagnostic results supporting the discharge/admit diagnosis, lab results, the need for further work-up and treatment in the hospital. Admission orders: after a detailed discussion of the patient's condition and case, the admit orders are written by me. ED course: Pt already with labs and cultures ordered prior to arrival by Dr. Nogueira, patient appears to be septic, with urine as source, no hypotension, abx already ordered by Dr. Nogueira, everything seems to be completed and will admit to Dr. Brown. . 16:48 ED course: Lab called to notify of hypoglycemia, patient still awakens and talking, D50 rn ordered as well as D5 infusion.. 10/08 14:12 Order name: CBC with Diff rn 10/08 14:12 Order name: Basic Metabolic Panel rn 10/08 14:12 Order name: Lactate; Complete Time: 16:11 rn 10/08 14:12 Order name: Blood Culture Adult (2) rn 10/08 14:12 Order name: Procalcitonin; Complete Time: 16:11 rn 10/08 14:13 Order name: COVID-19/FLU A+B (Document "Date of Onset" if Symptomatic) rn 10/08 14:13 Order name: COVID-19/FLU A+B; Complete Time: 16:11 EDMS 10/08 16:15 Order name: XRAY Chest (1 view) rn 10/08 17:01 Order name: Glucose, Ancillary Testing EDTX 10/08 17:56 Order name: Glucose, Ancillary Testing EDTX 10/08 14:12 Order name: IV Start; Complete Time: 14:14 rn 10/08 14:12 Order name: Cardiac monitoring; Complete Time: 14:13 rn 10/08 14:12 Order name: O2 Sat Monitoring; Complete Time: 17:04 rn Administered Medications: 14:48 Drug: NS 0.9% 1000 ml Route: IV; Rate: 1000 ml; Site: left antecubital; jh6 15:38 Drug: NS 0.9% 1000 ml Route: IV; Rate: 1000 ml; Site: right forearm; jh6 16:55 Drug: Oral Gel Gel 10 % 15 grams Route: Mucous Membrane; jg9 17:00 Drug: Dextrose 10 % in Water 500 ml Route: IV; Rate: bolus; Site: right antecubital; jg9 17:01 CANCELLED (not availablee): D50W 50 ml IVP once; (1 amp) jg9 17:01 CANCELLED (wrong orderr): D5-NS 1000 ml IV at 125 ml/hr continuous jg9 Disposition Summary: 10/08/21 14:22 Hospitalization Ordered Hospitalization Status: Inpatient Admission rn Provider: Shad Brown rn Location: Telemetry/MedSur (Inpatient) rn Condition: Fair rn Problem: new rn Symptoms: have improved rn Bed/Room Type: Standard rn Room Assignment: 232(10/08/21 15:45) bd Diagnosis - Sepsis, unspecified organism rn - UTI/ Urinary tract infection, site not specified rn - Altered mental status, unspecified rn Forms: - Medication Reconciliation Form rn - SBAR form rn Signatures: Dispatcher [employer] EDUyen Munoz Roman, MD MD rn Hastedt, Jennifer, RN RN jh6 Carol Zayas, RN RN jg9 Corrections: (The following items were deleted from the chart) 14:18 14:17 Hospitalizations: No recent hospitalization is reported. rn rn 15:45 14:22 rn bd 17:01 16:45 D50W 50 ml IVP once; (1 amp) ordered. shay lópezg9 17:01 16:45 D5-NS 1000 ml IV at 125 ml/hr continuous ordered. shay jg9
[2021-10-08] MEDS ORDERED: NA CHLORIDE 0.9% 2,000 ML ONE (14:25)
[2021-10-08 15:13] LABS: SARS-COV-2 RT PCR NEGATIVE (NEGATIVE)
[2021-10-08 16:43] LABS: Potassium 3.9 mmol/L (3.5-5.1)
[2021-10-08] MEDS ORDERED: DEXTROSE 10%-WATER 500 ML IV ONE ×2 (16:53→16:55)
[2021-10-08] MEDS ORDERED: DEXTROSE ORAL 40% 15 GM TUBE ONE (16:54)
[2021-10-08] MEDS ORDERED: D10W 250 ML IV ONE ×2 (16:56→16:57)
[2021-10-08] MEDS ORDERED: ONDANSETRON 4 MG/2 ML VIAL IV PRN (18:25)
[2021-10-08 18:41] VITALS: BMI 27.2
--- NOTE | 2021-10-08 18:49 | CON ---
Reason For Consultation/chief Complaint: Tachycardia. History Of Present Illness: Ms. 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 Because she was a poor operative candidate, discussion was held extensively and the decision was intravesical/intrarena l chemotherapy. She was initiated on intrarenal gemcitabine chemotherapy over the course of the last few weeks with a right ureteral stent in place allowing reflux of the chemotherapeutic agent. To ac hieve more efficacious delivery of the chemotherapy, the plan was to place a right percutaneous nephr ostomy tube and administer intrarenally. The patient underwent right nephrostomy tube placement yest er[facility]cut[facility] at [facility], and her family notes that later that evening, sh chelsey began to not feel as well. She presented today for planned intrarenal gemcitabine instillation, an d while prior urine cultures taken had only revealed mixed babatunde, and she was managed with Bactrim Do uble Strength tablets taken starting 2 days prior to the planned chemotherapeutic administration, shereen pite this, she presented to the day surgery area a bit somnolent appearing and not her usual. Physical Examination: Vital Signs: Reveal tachycardia into the 120s and 130s associated with systolic blood pressure in th e 130s. General: The patient was easily arousable, but was somewhat somnolent appearing. She had some mild dyspnea, lying in the bed at rest. Assessment And Recommendations: A 61-year-old woman with multiple medical comorbidities and right up per tract urothelial carcinoma causing ureteral stenosis and hydronephrosis now with systemic inflamm atory response syndrome and suspected pyelonephritis/sepsis after recent right percutaneous nephrosto my tube placement. I would recommend the patient to have an IV placed and be given a bolus of 500 cc normal saline. She was then ordered to receive 1 g of cefepime IV therapy. EKG and chest x-ray were obtained. Blood cultures x2 were obtained. Urine culture had already been taken per protocol. I then spoke with Dr. rBown, her outpatient physician who also had admitting privileges, and we discu ssed the patient's situation and agreed on the emergency department on a weekend prior to admission. As a result, the patient was transferred to the emergency department. The planned chemotherapy today was aborted and we will plan to trial again next week once she is hope fully better. This would be instillation #3 of 6 to be planned intrarenally as opposed intravesicall y at this time. We will also plan right ureteral stent extraction once the systemic inflammatory response syndrome britton s resolved to remove the foreign body potential source of the infection. DAVID/SANTOS Voice ID: [id number] Report ID: [id number]
[2021-10-08] MEDS: D5 0.45 NS 1,000 ML IV SCH (18:56)
[2021-10-08] MEDS ORDERED: GLUCAGON 1 MG/VIAL IM PRN (21:29)
[2021-10-08] MEDS: ACETAMINOPHEN 500 MG TAB PO PRN (21:35)
[2021-10-08] MEDS ORDERED: D10W 250 ML IV SCH (22:00)
[2021-10-08] MEDS: CEFEPIME 1 GM in NA CHLORIDE 0.9% 100 ML IV SCH (23:41)
[2021-10-09] MEDS: INSULIN -REGULAR HUMAN 50 UNIT/0.5 ML ML SQ SCH ×6 (04:00→20:00)
[2021-10-09 05:32] LABS: Absolute Lymphocytes (CBC) 0.6 K/uL (0.7-4.9); Hematocrit 22.9 % (36.0-45.0); Lymphocytes % 20.2 % (15.3-44.8); MPV 6.6 fL (7.6-11.3); RBC Red Blood Cell Count 2.64 M/uL (3.86-4.86)
[2021-10-09] MEDS: D5 0.45 NS 1,000 ML IV SCH ×2 (05:39→14:17)
[2021-10-09] MEDS: LEVOTHYROXINE SOD 0.075 MG TAB PO SCH (05:39)
[2021-10-09] MEDS: ACETAMINOPHEN 500 MG TAB PO PRN (05:43)
[2021-10-09] MEDS: PANTOPRAZOLE 40MG TABLET PO SCH (05:43)
[2021-10-09 05:46] LABS: Magnesium 1.7 mg/dL (1.8-2.4)
[2021-10-09] MEDS: methocarbamoL 500 MG TAB PO SCH (08:27)
[2021-10-09] MEDS: HYDROCODONE/APAP 10/325 TAB PO PRN ×2 (08:28→16:21)
[2021-10-09] MEDS: MONTELUKAST 10 MG TAB PO SCH (08:28)
[2021-10-09] MEDS: VENLAFAXINE HCL XR 75 MG CAP PO SCH (08:28)
--- NOTE | 2021-10-09 08:28 | P.HP ---
Certification for Inpatient Patient admitted to: Inpatient Practitioner: I am a practitioner with admitting privileges, knowledge of patient current condition, hospital course, and medical plan of care. Services: Services provided to patient in accordance with Admission requirements found in Title 42 Section 412.3 of the Code of Federal Regulations Patient History Date of Service: 10/09/21 Reason for admission: UROSEPSIS , DR GRIFFIN CALLED. History of Present Illness: ADRIANA IS FRAIL LADY WITH FRAGILE X SYNDROME, COPD, CAD, DJD COMES WITH WEAKNESS AND FOUND TO HAVE TACHYCARDIA WITH UTI BYDR GRIFFIN IN HIS OFFICE. SHE WAS SENT TO ER. Allergies Penicillins Allergy (Intermediate, Verified 09/03/21 10:20) Rash latex Allergy (Verified 09/03/21 10:20) Hives/Rash morphine Allergy (Verified 09/03/21 10:20) Itching/Agitation Home Medications: Atorvastatin Calcium 10 mg PO BEDTIME 04/27/21 Levothyroxine [Synthroid*] 75 mcg PO [id number] 04/27/21 Montelukast [Singulair*] 10 mg PO DAILY 04/27/21 methocarbamoL [Methocarbamol] 500 mg PO DAILY 04/27/21 Hydrocodone Bit/Acetaminophen [Hydrocodon-Acetaminophn 10-325] 1 each PO Q6HP PRN 06/12/21 ARIPiprazole [Aripiprazole] 2 mg PO DAILY 09/03/21 Mirtazapine [Remeron*] 15 mg PO BEDTIME 09/03/21 Venlafaxine HCl [Venlafaxine HCl ER] 150 mg PO DAILY 09/03/21 Gabapentin 100 mg PO BEDTIME 10/08/21 Insulin Glargine,Hum.rec.anlog [Lantus Solostar] 18 unit SQ BEDTIME 10/08/21 Insulin Lispro [Humalog Kwikpen U-100] 10 unit SQ BREAKFAST 10/08/21 Omeprazole [Prilosec] 40 mg PO DAILY 10/08/21 - Past Medical/Surgical History Has patient received pneumonia vaccine in the past: Yes Diabetic: Yes -: MR/developmental delay -: COPD -: hyperthyroid -: DM -: gastric reflux -: urinary incontinence -: ileostomy -: tubal ligation -: cholecystectomy > 10 yrs -: renal stent placement Right 03/2021 -: ileostomy - Family History Father -: Stroke Mother -: Cancer, Blood disorders Brother -: Seizures Notes: - Social History Smoking Status: Former smoker Alcohol use: No CD- Drugs: No Caffeine use: Yes Place of Residence: Home Review of Systems General: Weakness, Malaise Physical Examination - Vital Signs Temperature: 97.7 F Blood Pressure: 95/50 Pulse: 86 Respirations: 17 Pulse Ox (%): 97 - Physical Exam General: Oriented x2, Mild distress, Moderate distress, Obese HEENT: Atraumatic, PERRLA, Mucous membr. moist/pink, EOMI, Sclerae nonicteric Neck: Supple, 2+ carotid pulse no bruit, No LAD, Without JVD or thyroid abnormality Respiratory: Clear to auscultation bilaterally, Normal air movement Cardiovascular: Regular rate/rhythm, Normal S1 S2 Gastrointestinal: Normal bowel sounds, No tenderness Musculoskeletal: No tenderness Integumentary: No rashes Neurological: Normal gait, Normal speech, Normal strength at 5/5 x4 extr, Normal tone, Normal affect Lymphatics: No axilla or inguinal lymphadenopathy - Studies Laboratory Data (last 24 hrs) 10/08/21 14:12: WBC Cancelled, Hgb Cancelled, Hct Cancelled, Plt Count Cancelled Assessment and Plan - Problems (Diagnosis) (1) COPD (chronic obstructive pulmonary disease) Current Visit: Yes Status: Chronic Qualifiers: COPD type: emphysema Emphysema type: unspecified Qualified Code(s): J43.9 - Emphysema, unspecified (2) Anemia, blood loss Current Visit: Yes Status: Acute Plan: TRANSFUSE TWO UNITS OF BLOOD. SHE IS FRAIL AND NOT A GOOD CANDIDATE FOR COLONOSCOPY. FU WITH GI OP (3) Sepsis secondary to UTI Current Visit: No Status: Acute (4) Fragile X syndrome Onset Date: 03/08/18 Current Visit: No Status: Chronic (5) Dehydration Current Visit: No Status: Acute Plan: IMPROVED ON IV FLUIDS. - Advance Directives Does patient have a Living Will: No Does patient have a Durable POA for Healthcare: Yes
[2021-10-09] MEDS: LIDOCAINE 4% PATCH TOP SCH (08:29)
[2021-10-09] MEDS ORDERED: MAGNESIUM SULFATE 1 gm IVPB 1 GM/100 ML BAG IV ONE (09:00)
[2021-10-09] MEDS: CEFEPIME 1 GM in NA CHLORIDE 0.9% 100 ML IV SCH ×2 (10:01→21:12)
[2021-10-09 10:07] LABS: Platelet Estimate DECR; White Blood Cell Scan OK (OK)
[2021-10-09 10:09] LABS: Blood Morphology Comment NOT SEEN (NOT SEEN)
[2021-10-09] MEDS ORDERED: NA CHLORIDE 0.9% 250 ML ONE (16:05)
[2021-10-09 18:14] LABS: Urine Bilirubin Negative (Negative); Urine Blood 3+ (Negative); Urine Color Yellow (Yellow); Urine Glucose Negative (Negative); Urine Protein 3+ (Negative); Urine Urobilinogen 0.2 mg/dL (0.2-1.0)
[2021-10-09 18:18] LABS: Urine Appearance SL CLOUDY (Clear); Urine Microscopic Reflex ORDER UMIC
[2021-10-09 18:22] LABS: Urine RBC <5 /HPF (NONE SEEN)
[2021-10-09 18:23] LABS: Urine Bacteria >50 /HPF (<20)
[2021-10-09] MEDS: MIRTAZAPINE 15 MG TAB PO SCH (21:12)
[2021-10-09] MEDS: ATORVASTATIN 10 MG TAB PO SCH (21:12)
[2021-10-09] MEDS: GABAPENTIN 100 MG CAP PO SCH (21:12)
[2021-10-10] MEDS: D5 0.45 NS 1,000 ML IV SCH ×3 (00:25→10:25)
[2021-10-10 05:37] LABS: Absolute Lymphocytes (CBC) 0.5 K/uL (0.7-4.9); Hematocrit 32.6 % (36.0-45.0); MPV 7.2 fL (7.6-11.3); RBC Red Blood Cell Count 3.76 M/uL (3.86-4.86)
[2021-10-10] MEDS: LEVOTHYROXINE SOD 0.075 MG TAB PO SCH (05:38)
[2021-10-10] MEDS: PANTOPRAZOLE 40MG TABLET PO SCH (05:38)
[2021-10-10 05:59] LABS: Albumin 2.7 g/dL (3.4-5.0); Bilirubin Total 0.5 mg/dL (0.2-1.0); Magnesium 1.9 mg/dL (1.8-2.4); Potassium 4.3 mmol/L (3.5-5.1); Protein, Total 5.6 g/dL (6.4-8.2)
[2021-10-10] MEDS: INSULIN -REGULAR HUMAN 50 UNIT/0.5 ML ML SQ SCH ×6 (06:43→20:00)
--- NOTE | 2021-10-10 08:11 | P.DS ---
Admission Date: 10/08/21 Discharge Date: 10/10/21 Disposition: ROUTINE DISCHARGE Discharge Condition: FAIR Reason for Admission: UROSEPSIS , DR GRIFFIN CALLED. - Problems (1) COPD (chronic obstructive pulmonary disease) Current Visit: Yes Status: Chronic Qualifiers: COPD type: emphysema Emphysema type: unspecified Qualified Code(s): J43.9 - Emphysema, unspecified (2) Anemia, blood loss Current Visit: Yes Status: Acute (3) Sepsis secondary to UTI Current Visit: No Status: Acute (4) Fragile X syndrome Onset Date: 03/08/18 Current Visit: No Status: Chronic (5) Dehydration Current Visit: No Status: Acute Brief History of Present Illness: LATISHA IS FRAIL LADY WITH FRAGILE X SYNDROME, COPD, CAD, DJD COMES WITH WEAKNESS AND FOUND TO HAVE TACHYCARDIA WITH UTI BYDR GRIFFIN IN HIS OFFICE. SHE WAS SENT TO ER. Hospital Course: Latisha came after Dr. Griffin found her to be in sepsis. She is doing great at her baseline. Culture grew nothing or last two urine tests. She is stable to go homeon ceftin. Family is caring and takes care of her. Vital Signs/Physical Exam: Temp Pulse Resp BP Pulse Ox 99.4 F 91 H 17 117/66 96 10/10/21 04:00 10/10/21 04:00 10/10/21 04:00 10/10/21 04:00 10/10/21 04:00 Laboratory Data at Discharge: WBC 3.60 K/uL (4.3-10.9) L D 10/10/21 05:10 Hgb 11.1 g/dL (12.0-15.0) L D 10/10/21 05:10 Hct 32.6 % (36.0-45.0) L D 10/10/21 05:10 Plt Count 106 K/uL (152-406) L 10/10/21 05:10 Sodium 137 mmol/L (136-145) 10/10/21 05:10 Potassium 4.3 mmol/L (3.5-5.1) 10/10/21 05:10 BUN 15 mg/dL (7-18) 10/10/21 05:10 Creatinine 1.41 mg/dL (0.55-1.3) H 10/10/21 05:10 Glucose 218 mg/dL (74-106) H 10/10/21 05:10 Magnesium 1.9 mg/dL (1.8-2.4) 10/10/21 05:10 Total Bilirubin 0.5 mg/dL (0.2-1.0) 10/10/21 05:10 AST 22 U/L (15-37) 10/10/21 05:10 ALT 27 U/L (12-78) 10/10/21 05:10 Alkaline Phosphatase 80 U/L (45-117) 10/10/21 05:10 Home Medications: Atorvastatin Calcium 10 mg PO BEDTIME 04/27/21 Levothyroxine [Synthroid*] 75 mcg PO [id number] 04/27/21 Montelukast [Singulair*] 10 mg PO DAILY 04/27/21 methocarbamoL [Methocarbamol] 500 mg PO DAILY 04/27/21 Hydrocodone Bit/Acetaminophen [Hydrocodon-Acetaminophn 10-325] 1 each PO Q6HP PRN 06/12/21 ARIPiprazole [Aripiprazole] 2 mg PO DAILY 09/03/21 Mirtazapine [Remeron*] 15 mg PO BEDTIME 09/03/21 Venlafaxine HCl [Venlafaxine HCl ER] 150 mg PO DAILY 09/03/21 Gabapentin 100 mg PO BEDTIME 10/08/21 Insulin Glargine,Hum.rec.anlog [Lantus Solostar] 18 unit SQ BEDTIME 10/08/21 Insulin Lispro [Humalog Kwikpen U-100] 10 unit SQ BREAKFAST 10/08/21 Omeprazole [Prilosec] 40 mg PO DAILY 10/08/21 Cefuroxime [Ceftin] 250 mg PO BID #20 tab 10/10/21 New Medications: Cefuroxime [Ceftin] 250 mg PO BID #20 tab Followup: Unknown,U [Primary Care Provider] -
[2021-10-10] MEDS: methocarbamoL 500 MG TAB PO SCH (09:00)
[2021-10-10] MEDS: LIDOCAINE 4% PATCH TOP SCH (09:01)
[2021-10-10] MEDS: MONTELUKAST 10 MG TAB PO SCH (09:02)
[2021-10-10] MEDS: CEFEPIME 1 GM in NA CHLORIDE 0.9% 100 ML IV SCH ×2 (09:02→21:33)
[2021-10-10] MEDS: VENLAFAXINE HCL XR 75 MG CAP PO SCH (10:27)
[2021-10-10] MEDS ORDERED: D5 0.45 NS 1,000 ML IV SCH (12:44)
[2021-10-10] MEDS ORDERED: HYDROCODONE/APAP 10/325 TAB PO PRN (12:46)
--- NOTE | 2021-10-10 12:46 | P.PN ---
Subjective Date of Service: 10/10/21 Chief Complaint: UROSEPSIS , DR GRIFFIN CALLED. Subjective: Improving SHE IS LETHARGIC AND WEAK. THIS AM SHE WAS NOT FULLY AWAKE BUT WANTED TO GO HOME. I WILL HOLD DISCHARGE FOR A DAY SHE NEEDS TO WAKE UP. SHE HAS COPD WITH HYPERCAPNEA AND IS A FORMER HEAVY SMOKER WITH POOR LUNG CAPACITY AND FRAIL IMMUNE SYSTEM FROM FRAGILE X SYNDROME. Physical Examination - Vital Signs Temperature: 98.5 F Blood Pressure: 127/43 Pulse: 78 Respirations: 14 Pulse Ox (%): 94 Assessment And Plan - Current Problems (Diagnosis) (1) COPD (chronic obstructive pulmonary disease) Current Visit: Yes Status: Chronic Qualifiers: COPD type: emphysema Emphysema type: unspecified Qualified Code(s): J43.9 - Emphysema, unspecified (2) Anemia, blood loss Current Visit: Yes Status: Acute Plan: TRANSFUSE TWO UNITS OF BLOOD. SHE IS FRAIL AND NOT A GOOD CANDIDATE FOR COLONOSCOPY. FU WITH GI OP (3) Sepsis secondary to UTI Current Visit: No Status: Acute (4) Fragile X syndrome Onset Date: 03/08/18 Current Visit: No Status: Chronic (5) Dehydration Current Visit: No Status: Acute Plan: IMPROVED ON IV FLUIDS.
[2021-10-10 14:53] LABS: Arterial Blood Carboxyhemoglob 1.6 % (0-1.5); Blood Gas Oxyhemoglobin 86.9 % (94-97); Blood O2 Saturation 89.6 % (92-98.5)
[2021-10-10] MEDS: GABAPENTIN 100 MG CAP PO SCH (21:33)
[2021-10-10] MEDS: MIRTAZAPINE 15 MG TAB PO SCH (21:33)
[2021-10-10] MEDS: ATORVASTATIN 10 MG TAB PO SCH (21:33)
[2021-10-11] MEDS: INSULIN -REGULAR HUMAN 50 UNIT/0.5 ML ML SQ SCH ×3 (00:39→09:10)
[2021-10-11] MEDS: ACETAMINOPHEN 500 MG TAB PO PRN (02:49)
[2021-10-11] MEDS: PANTOPRAZOLE 40MG TABLET PO SCH (05:31)
[2021-10-11] MEDS: LEVOTHYROXINE SOD 0.075 MG TAB PO SCH (05:31)
[2021-10-11 08:30] VITALS: BP 130/63; TEMP 97.6
[2021-10-11] MEDS: MONTELUKAST 10 MG TAB PO SCH (09:07)
[2021-10-11] MEDS: CEFEPIME 1 GM in NA CHLORIDE 0.9% 100 ML IV SCH (09:07)
[2021-10-11] MEDS: VENLAFAXINE HCL XR 75 MG CAP PO SCH (09:07)
[2021-10-11] MEDS: methocarbamoL 500 MG TAB PO SCH (09:07)
[2021-10-11] MEDS: LIDOCAINE 4% PATCH TOP SCH (09:08)
[2021-10-11 09:44] VITALS: O2SAT 95
[2021-10-13 13:49] LABS: Immunoglobulin A 107 mg/dL (70-320); Tissue Transglutaminase IgA Ab <1.0 U/mL (<15.0)
== END 2021-10-11 10:55 | disposition home or self-care (01) | DRG 872 ==
LOC: ER 14:05 → ERHOLD 14:45 → 2ND 16:23
PROVIDERS: ADMIT Internal Medicine; ATTEND Internal Medicine
PROC: 30233N1 Transfusion of Nonautologous Red Blood Cells into Peripheral Vein, Percutaneous Approach (ICD-10-PCS; principal; 2021-10-09)
DX: A41.9 Sepsis, unspecified organism (principal); N39.0 Urinary tract infection, site not specified; J96.11 Chronic respiratory failure with hypoxia; D62 Acute posthemorrhagic anemia; C68.9 Malignant neoplasm of urinary organ, unspecified; G93.40 Encephalopathy, unspecified; E11.9 Type 2 diabetes mellitus without complications; Q99.2 Fragile X chromosome; E86.0 Dehydration; J43.9 Emphysema, unspecified; E03.9 Hypothyroidism, unspecified; I25.10 Atherosclerotic heart disease of native coronary artery without angina pectoris; Z88.0 Allergy status to penicillin; Z91.040 Latex allergy status; Z20.822 Contact with and (suspected) exposure to COVID-19; Z93.6 Other artificial openings of urinary tract status
CPT/HCPCS: 0240U; 36415; 36430; 71045; 80048; 80053; 81003; 81015; 82607; 82728; 82784; 82805; 82947; 83516; 83605; 83735; 84145; 85025; 86850; 86900; 86901; 87040; 87086; 87088; 94760; 96374; 99283; J0692; J2405; J3475; J7030; J7040; J7050; J7799; J9201; P9016

== ENCOUNTER 2021-10-17 12:16 | Emergency (ER) | payer OTHER ==
--- OUTSIDE RECORDS SUMMARY | 2021-10-17 12:23 | XMS REPORT | Continuity of Care Document ---
:1960 Author Organization [facility] t Address [address] [place] [address] Care Team Providers Name Role Phone GONZÁLEZ BROWN Primary Care Physician Unavailable Kevin Attending Clinician Unavailable Ricardo GA Attending Clinician Unavailable ELIAS Attending Clinician Unavailable Neftali BECKFORD, L Attending Clinician Bella GREGORY Attending Clinician Unavailable Svetlana GARCIAS S Attending Clinician PEYTON Attending Clinician Unavailable ELIAS Admitting Clinician Unavailable MANUELA LUCIANO Admitting Clinician Unavailable Payers Payer Name Policy Type Policy Number Effective Date Expiration Date S michael MEDICARE PART A [id number] 1998 2024 AND B 00:00:00 00:00:00 MEDICARE A B [id number] 1998 00:00:00 [place] [id number] 1999 00:00:00 [place] [id number] Problems Condition Condition Condition Status Onset Resolution Last Treating Co mments Source Name Details Category Date Date Treatment Clinician Date No known No known Disease Unive rs active active ity of problems problems [facility] Allergies, Adverse Reactions, Alerts Allergy Allergy Status Severity Reaction(s) Onset Inactive Treating Comm ents Source Name Type Date Date Clinician MORPHINE [facility] PEN[place] Allergy Active Low Rash [facility] NO KNOWN Drug Active [facility] ALLERGIE Class ity of S [facility] Social History Social Habit Start Date Stop Date Quantity Comments Source Exposure to Not sure [facility] SARS-CoV-2 (event) Medica l Branch Tobacco use and 2021-07-25 2021-07-25 Never used [facility] exposure 00:00:00 00:00:00 Medical Branch Sex Ass[birth year] [facility] 00:00:00 00:00:00 [facility] Smoking Status Start Date Stop Date Source Unknown if ever smoked [facility] Medications Ordered Filled Start Stop Current Ordering Indication Dosage Frequency Signature Comments Components Source Medication Medication Date Date Medication? Clinician (SIG) Name Name No known No [facility] medications -06 ity of 10:38: [address] No known No [facility] medications -06 ity of 10:38: [address] Vital Signs Vital Name Observation Time Observation Value Comments Source HEIGHT 2021-10-07 14:28:00 149.9 cm WEIGHT 2021-10-07 14:28:00 61.236 kg HEIGHT 2021-10-07 14:28:00 149.9 cm WEIGHT 2021-10-07 14:28:00 61.236 kg Systolic blood 2021-07-25 16:54:00 144 mm[facility]Hg[facility] pressure [facility] Diastolic blood 2021-07-25 16:54:00 72 mm[Hg] [facility] Heart rate 2021-07-25 16:54:00 97 /min [facility] Body height 2021-07-25 16:51:00 149.9 cm [facility] Body weight 2021-07-25 16:51:00 60.102 kg [facility] BMI 2021-07-25 16:51:00 26.76 kg/m2 [facility] Oxygen saturation 2021-07-25 16:51:00 98 /min [facility] in Arterial blood Medical Br anch by Pulse oximetry Procedures This patient has no known procedures. Encounters Start End Encounter Admission Attending Care Care Encounter Source Date/Time Date/Time Type Type Clinicians Facility Department ID 2021-09-12 Outpatient ALMA ROSA Brown [facility] [id number] [address] [facility] 2021-08-14 Outpatient Kevin STMARGY [facility] [id number] [address] 14:28:00 Shad [id number] [facility] 2021-08-14 [id number] 13:49[facility] Shad [id number] [facility] 2021-08-14 Outpatient Kevin [facility] [id number] 13:42:24 Shad [id number] [facility] 2021-03-01 Outpatient SURY [facility] [id number] [place] 01:03:54 [facility] 2021-10-07 2021-10-[address] [facility] [id number] [facility] 00:00:00 21:05:00 [place] 2021-07-25 2021-07-25 [facility] [id number] [facility] 11:13:13 23:59:00 Encounter [facility] [id number] ity [facility] [id number] [place] AFIA?BLEA [id number] [facility] 8[facility] OFFICE [facility] 2021-07-25 2021-07-25 Outpatient Stevenson GREGORY [facility] [id number] Univers 10:30:00 11:32:38 WILLOW sena [facility] 2021-07-25 2021-07-25 [facility] [id number] Univers 10:30:00 11:00:00 Visit [facility] [id number] it y [facility] [id number] [place] AFIA?BLEA [id number] Mi dical DARI 198 [facility] OFFICE [facility] 2021-01-27 2021-01-31 Inpatient E PEYTON, [facility] [id number] [facility] 04:41:00 10:53:00 SANDRA Results Test Description Test Time Test Comments Results Result [facility] e Comments ANG, NEPHROSTOMY 2021-09-18 Initial TUBE CHANGE, 3 placementReason for RIGHT 18:36:00 Exam:->Mass of right Kidney; 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 2% lidocaine was given locally for anesthesia. Additionally, the patient received 0.5 mg IV Versed and 25 mcg IV fentanyl for conscious sedation and pain control. Vital signs were monitored and remained stable. Conscious sedation and continuous patient monitoring were provided for 30 minutes during the procedure. Using ultrasound guidance, a 21-gauge Chiba needle and a posterior approach, access was gained to a posterior mid to lower pole renal calyx. Small amount of contrast was injected through the needle into the collecting system to confirm position. An 018 wire was advanced through the needle into the right renal collecting system. An AccuStick sheath was placed. A Bentson wire was coiled within the right renal pelvis. The tract was dilated and an 8.5 Setswana pigtail external nephrostomy catheter was placed over the wire and into position within the right renal pelvis under fluoroscopic guidance. Repeat contrast injection was performed to confirm position. Overall, the patient tolerated the procedure well without immediate complications and was discharged from the department in stable condition. FINDINGS: Multiple images obtained during the procedure show first the needle and then the AccuStick sheath in expected position within the right renal pelvis. A double-J right ureteral stent is present. Following placement of the external nephrostomy catheter, the catheter lies in expected position with its tip coiled in the right renal pelvis. Limited sonographic examination of the right kidney performed during the procedure shows mildly dilated collecting system and calyces consistent with hydronephrosis. These images were obtained and archived to PACS. IMPRESSION: 1. Successful uncomplicated image guided placement of an 8 Setswana right external nephrostomy catheter. Total fluoroscopy time: 3.8 minutes. Estimated total patient is reported as (Ka,r): 2.6 mGy Signed: Gabriela Melendez MDReport Verified Date/Time: 10/09/2021 18:36:36 Reading Location: [facility] Diagnostic Imaging Reading Room - [facility] 1310.12 HROMBIN TIME/INR 2021-10-07 12:13:07 Test Item Value Reference Range Interpretation Comme nts PROTIME (BEAKER) (test code 13.2 seconds 11.9-14.2 = 759) INR (BEAKER) (test code = 1.02 See_Comment [ Automated message] The Sverve system which [employer] nerated this result transmit tomas reference range: [...] % 0-1 PERCENT (BEAKER) (test code = 9088)
[2021-10-17 13:55] LABS: Absolute Lymphocytes (CBC) 0.5 K/uL (0.7-4.9); Hematocrit 37.2 % (36.0-45.0); Lymphocytes % 7.8 % (15.3-44.8); MPV 6.9 fL (7.6-11.3); RBC Red Blood Cell Count 4.34 M/uL (3.86-4.86)
[2021-10-17] MEDS ORDERED: NA CHLORIDE 0.9% 500 ML ONE ×2 (13:59→15:46)
[2021-10-17 14:04] LABS: Protime INR 1.16
[2021-10-17 14:10] LABS: Albumin 3.1 g/dL (3.4-5.0); Bilirubin Total 0.5 mg/dL (0.2-1.0); Potassium 4.6 mmol/L (3.5-5.1)
[2021-10-17 14:37] LABS: Blood Morphology Comment NOT SEEN (NOT SEEN); Platelet Estimate ADEQ; White Blood Cell Scan OK (OK)
--- NOTE | 2021-10-17 14:40 | RAD REPORT ---
EXAM DESCRIPTION: CT - Abdomen Pelvis Wo Contrast - 10/17/2021 2:07 pm CLINICAL HISTORY: swelling near nephrostomy tube, no nephrostomy output COMPARISON: [facility] Protocol dated 04/30/2021; CT ABD PELVIS W CONTRAST dated 04/29/2008; Chest Single View dated 10/08/2021 TECHNIQUE: Axial [address] imaging of the abdomen and pelvis was performed without IV contrast. No IV contrast was given because of allergy, abnormal renal function, patient refusal or physician re quest. No oral contrast administered. All CT scans are performed using dose optimization technique as appropriate and may include automated exposure control or mA/KV adjustment according to patient size. FINDINGS: No focal mass, consolidation or pleural fluid collection. Interstitial markings are promin ent in the bilateral lower lung sr and the patient could have fibrosis, interstitial edema or inf iltrate The liver, spleen and pancreas show no suspicious findings on non-contrast imaging. Cholecystectomy c lips are present. No abnormal degree of biliary tree dilatation seen. Extrahepatic biliary tree is si milar to the 04/30/2021 study. Since the prior examination, a double pigtail stent to the right collecting system has been removed. A right-sided percutaneous nephrostomy tube has been placed. The detail of the drainage catheter is i n the lower pole of the right kidney. There is yhel-st-hwsbjiqz pelvic and calyx dilatation on the ri ght. This extends as mild dilatation into the proximal ureter. Distal right ureter is normal in diame ter. No obstructing or nonobstructing calculi. There is mild amount of edema in the fatty tissues of the right flank along the course of the nephrostomy tube. Minimal stranding in the right side perinep hric fat. No urinoma or other suspicious fluid collection seen. Left-sided pelvic kidney is present without hydronephrosis or associated calcification. Atrophic uter us is present. No ovarian abnormality seen. No significant adrenal finding. The urinary bladder is wi thout significant finding. Isodense masses and pyelonephritis are not excluded on noncontrast imaging . No dilated bowel loops or bowel wall thickening. No free air or pneumatosis. No hernia, mass or bulk y lymphadenopathy. No suspicious bony findings. IMPRESSION: Right percutaneous nephrostomy tube in place with the pigtail in lower pole of the right kidney. There is mild to moderate dilatation of the pelvis and calices on the right with mild dilata tion of the proximal right ureter. Right flank subcutaneous fatty tissues along the course of the nephrostomy tube or edematous. There i s minimal stranding in the right side perinephric fat. No urinoma or other abnormal fluid collections seen. Additional nonacute findings detailed in the body of the report. Full assessment is limited is the absence of IV contrast.
--- NOTE | 2021-10-17 16:05 | ER ---
Nurse's Notes [facility] Name: Latisha Hernandez Age: 61 yrs Sex: Female : 1960 Arrival Date: 10/17/2021 Time: 12:20 Bed 19 Private MD: Diagnosis: Leakage of nephrostomy catheter, initial encounter;Other mechanical complication of nephrostomy catheter, initial encounter;Dehydration Presentation: 10/17 12:28 Chief complaint: sister reports patient had a nephrostomy tube placed last week for ap3 chemo treatment, however she states the insertion site began leaking last night, along with the patient having confusion which began yesterday morning and has progressively gotten worse since then. It is reported the patients PCP wanted the patient to be evaluated to ensure the drainage isn't going into her, but is coming out. Coronavirus screen: At this time, the client does not indicate any symptoms associated with coronavirus-19. Ebola Screen: No symptoms or risks identified at this time. Initial Sepsis Screen: Does the patient meet any 2 criteria? Altered Mental Status. HR > 90 bpm. Yes Does the patient have a suspected source of infection? No. Patient's initial sepsis screen is negative. Risk Assessment: Do you want to hurt yourself or someone else? Patient reports no desire to harm self or others. Onset of symptoms was October 16, 2021. 12:28 Method Of Arrival: Wheelchair ap3 12:28 Acuity: ANGEL 3 ap3 Triage Assessment: 12:33 General: Appears ill, Behavior is flat, quiet. Pain: Denies pain. Neuro: Level of ap3 Consciousness is confused, lethargic, Oriented to person, place, patient states her year when asked what year it is. Patient unable to name president. Patient is able to tell me where she is, her birthday, her name and who her PCP is.. Respiratory: Airway is patent Respiratory effort is even, unlabored. Historical: - Allergies: 12:32 Morphine; "crazy"; ap3 12:32 PENICILLINS; ap3 - Home Meds: 14:42 aripiprazole 2 mg Oral tab 1 tab nightly [Active]; atorvastatin 10 mg Oral tab 1 tab britton nightly [Active]; Humalog 100 unit/mL Sub-Q crtg 8 unit before meals [Active]; Lantus 15 units Sub-Q soln nightly [Active]; meloxicam 15 mg Oral tab 1 tab once daily [Active]; methocarbamol 500 mg Oral tab daily [Active]; mirtazapine 15 mg Oral TbDL 1 tab nightly [Active]; montelukast 10 mg Oral tab 1 tab once daily [Active]; omeprazole 40 mg Oral cpDR 1 cap once daily [Active]; venlafaxine 150 mg Oral cp24 once daily [Active]; - PMHx: 12:32 angina pectoris; COPD; Diabetes - IDDM; GERD; Hypertension; Hypothyroidism; seasonal ap3 allergies; 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 - Social history:: Smoking status: Reported history of juuling and/or vaping. Patient/guardian denies using tobacco, the patient reports quitting approximately 10 years ago. - Family history:: not pertinent. - Code Status:: DNAR. - Hospitalizations: : The patient was recently seen at [facility]. Screenin:38 Abuse screen: Denies threats or abuse. Nutritional screening: pt is a cancer patient on ap3 chemo. appetite fluctuates. Tuberculosis screening: No symptoms or risk factors identified. 14:41 Fall Risk IV access (20 points). Gait- Impaired (20 pts.). britton Assessment: 14:41 General: Appears in no apparent distress. Behavior is calm, cooperative. Pain: Denies britton pain. : Parent/caregiver report the patient having leaking from left neph tube. Vital Signs: 12:28 BP 136 / 52; Pulse 113; Resp 17; Temp 97.9; Pulse Ox 95% ; Weight 56.25 kg; Height 4 ap3 ft. 11 in. (149.86 cm); 14:35 BP 139 / 92; Pulse 103; Resp 18; Pulse Ox 92% on 2 lpm NC; britton 16:00 BP 141 / 72; Pulse 101; Resp 17; Pulse Ox 94% on 2 lpm NC; britton 12:28 Body Mass Index 25.04 (56.25 kg, 149.86 cm) ap3 ED Course: 12:20 Patient arrived in ED. ds1 12:32 Triage completed. ap3 12:38 Arm band placed on right wrist. ap3 12:56 Jesús Leon MD is Attending Physician. rn 13:50 Mary Valentine RN is Primary Nurse. britton 13:51 Blood Culture Adult (2) Sent. britton 13:51 CBC with Diff Sent. britton 13:51 CMP Sent. britton 13:51 Lactate Sent. britton 13:51 Protime (+inr) Sent. britton 13:51 Ptt, Activated Sent. britton 13:51 Urine Culture Sent. britton 13:51 Urine Microscopic Only Sent. britton 14:09 Abdomen In Process Unspecified. EDMS 14:41 Patient has correct armband on for positive identification. Bed in low position. britton 14:41 No provider procedures requiring assistance completed. Inserted saline lock: 20 gauge britton in right forearm, using aseptic technique. 16:04 Jaya Nogueira MD is Referral Physician. rn Administered Medications: 14:34 Drug: NS 0.9% 500 ml Route: IV; Rate: bolus; Site: right forearm; britton 15:49 Drug: NS 0.9% 500 ml Route: IV; Rate: bolus; Site: right forearm; britton Outcome: 16:04 Discharge ordered by . rn 16:33 Patient left the ED. em1 Signatures: Dispatcher [employer] ED[facility] Gladys Alvarez ds1 Jesús Leon MD MD rn Martinez, Eric em1 Olga Thomas RN RN ap3 Mary Valentine RN [facility]
--- NOTE | 2021-10-17 16:05 | EDPHYS ---
Physician Documentation [facility] Name: Latisha Hernandez Age: 61 yrs Sex: Female : 1960 Arrival Date: 10/17/2021 Time: 12:20 Bed 19 Private MD: ED Physician Jesús Leon HPI: 10/17 13:23 This 61 yrs old Female presents to ER via Wheelchair with complaints of Neph Tube rn Leakage, confusion, no urine output. 13:23 Family reports had recent nephrostomy tube placement for chemo, was admitted by [facility] for rn urosepsis last week, seen by Dr. Nogueira on Thursday, noted to have focal swelling at that time but imaging was ok. Family member reports slight increase in swelling near nephrostomy tube, confusion, and no urine output in nephrostomy bag since last night. No known trauma. . Onset: The symptoms/episode began/occurred at an unknown time. Severity of symptoms: At their worst the symptoms were mild in the emergency department the symptoms are unchanged. The patient has not experienced similar symptoms in the past. The patient has been recently seen by a physician:. Historical: - Allergies: 12:32 Morphine; "crazy"; ap3 12:32 PENICILLINS; ap3 - Home Meds: 14:42 aripiprazole 2 mg Oral tab 1 tab nightly [Active]; atorvastatin 10 mg Oral tab 1 tab britton nightly [Active]; Humalog 100 unit/mL Sub-Q crtg 8 unit before meals [Active]; Lantus 15 units Sub-Q soln nightly [Active]; meloxicam 15 mg Oral tab 1 tab once daily [Active]; methocarbamol 500 mg Oral tab daily [Active]; mirtazapine 15 mg Oral TbDL 1 tab nightly [Active]; montelukast 10 mg Oral tab 1 tab once daily [Active]; omeprazole 40 mg Oral cpDR 1 cap once daily [Active]; venlafaxine 150 mg Oral cp24 once daily [Active]; - PMHx: 12:32 angina pectoris; COPD; Diabetes - IDDM; GERD; Hypertension; Hypothyroidism; seasonal ap3 allergies; 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 - Social history:: Smoking status: Reported history of juuling and/or vaping. Patient/guardian denies using tobacco, the patient reports quitting approximately 10 years ago. - Family history:: not pertinent. - Code Status:: DNAR. - Hospitalizations: : The patient was recently seen at [facility]. ROS: 13:23 Constitutional: Negative for fever, chills, and weight loss, Eyes: Negative for injury, rn pain, redness, and discharge, ENT: Negative for injury, pain, and discharge, Neck: Negative for injury, pain, and swelling, Cardiovascular: Negative for chest pain, palpitations, and edema, Respiratory: Negative for shortness of breath, cough, wheezing, and pleuritic chest pain, Abdomen/GI: Negative for abdominal pain, nausea, vomiting, diarrhea, and constipation, Back: Negative for injury : + decreased UOP MS/Extremity: Negative for injury and deformity, Skin: Negative for injury, rash, and discoloration, Neuro: Negative for headache, numbness, tingling, and seizure, + confusion Exam: 13:23 Constitutional: This is a well developed, well nourished patient who is awake, alert, rn and in no acute distress. Head/Face: Normocephalic, atraumatic. Eyes: Periorbital areas with no swelling, redness, or edema. ENT: dry MM Cardiovascular: Tachycardic, regular Respiratory: No increased work of breathing, no retractions or nasal flaring. Abdomen/GI: soft, non-tender Skin: Warm, dry, mild blanching erythema at site of right nephrostomy, + approx 3 cm area of induration, no fluctuance superior to nephrostomy site. MS/ Extremity: Pulses equal, no cyanosis. Neuro: Awake and alert, able to stand and sit on toilet with some help Vital Signs: 12:28 BP 136 / 52; Pulse 113; Resp 17; Temp 97.9; Pulse Ox 95% ; Weight 56.25 kg; Height 4 ap3 ft. 11 in. (149.86 cm); 14:35 BP 139 / 92; Pulse 103; Resp 18; Pulse Ox 92% on 2 lpm NC; britton 16:00 BP 141 / 72; Pulse 101; Resp 17; Pulse Ox 94% on 2 lpm NC; britton 12:28 Body Mass Index 25.04 (56.25 kg, 149.86 cm) ap3 MDM: 12:56 Patient medically screened. rn 15:06 ED course: Consulted with Dr. Nogueira regarding patient, he reviewed imaging and rn recommends flushing catheter, might have sediment or obstruction, will have nurse flush. . 15:59 Differential Diagnosis dehydration, renal failure, obstructed catheter. Data reviewed: rn vital signs, nurses notes, lab test result(s), radiologic studies, CT scan, and as a result, I will discharge patient. Counseling: I had a detailed discussion with the patient and/or guardian regarding: the historical points, exam findings, and any diagnostic results supporting the discharge/admit diagnosis, lab results, radiology results, the need for outpatient follow up, to return to the emergency department if symptoms worsen or persist or if there are any questions or concerns that arise at home. Response to treatment: the patient's symptoms have markedly improved after treatment, and as a result, I will discharge patient. Special discussion: I discussed with the patient/guardian in detail that at this point there is no indication for admission to the hospital. It is understood, however, that if the symptoms persist or worsen the patient needs to return immediately for re-evaluation. Based on the history and exam findings, there is no indication for further emergent testing or inpatient evaluation. I discussed with the patient/guardian the need to see the primary care provider for further evaluation of the symptoms. I discussed with the patient/guardian the need to see the urologist for further evaluation of the symptoms. ED course: Catheter flushed, obvious plug/sediment was extracted upon aspiration and now urine flowing into nephrostomy bag. Pt also improving after IV fluids. Will dc home as Dr. Nogueira did not feel any other reason to observe or admit. Spoke with family and agree. Pt already on abx for recent UTI and for gram + coverage as well when swelling noted. . 10/17 13:04 Order name: Blood Culture Adult (2) rn 10/17 13:04 Order name: CBC with Diff; Complete Time: 14:42 rn 10/17 13:04 Order name: CMP; Complete Time: 14:26 rn 10/17 13:04 Order name: Lactate; Complete Time: 14:42 rn 10/17 13:04 Order name: Protime (+inr); Complete Time: 14:26 rn 10/17 13:04 Order name: Ptt, Activated; Complete Time: 14:26 rn 10/17 13:05 Order name: Procalcitonin; Complete Time: 14:52 rn 10/17 14:01 Order name: Abdomen ; Complete Time: 14:42 EDIL 10/17 14:24 Order name: CREATININE WHOLE BLOOD; Complete Time: 14:26 [facility] 10/17 14:37 Order name: CBC Smear Scan; Complete Time: 14:42 [facility] 10/17 13:04 Order name: IV Start; Complete Time: 13:51 rn 10/17 13:04 Order name: Accucheck rn 10/17 13:04 Order name: Cardiac monitoring; Complete Time: 13:50 rn 10/17 13:04 Order name: EKG - Nurse/Tech; Complete Time: 13:50 rn 10/17 13:04 Order name: IV Saline Lock - Large Bore; Complete Time: 13:51 rn 10/17 13:04 Order name: Labs collected and sent; Complete Time: 13:52 rn 10/17 13:04 Order name: O2 Per Protocol; Complete Time: 13:51 rn 10/17 13:04 Order name: O2 Sat Monitoring; Complete Time: 13:51 rn 10/17 13:04 Order name: Urine Dipstick-Ancillary (obtain specimen) rn Administered Medications: 14:34 Drug: NS 0.9% 500 ml Route: IV; Rate: bolus; Site: right forearm; britton 15:49 Drug: NS 0.9% 500 ml Route: IV; Rate: bolus; Site: right forearm; britton Disposition Summary: 10/17/21 16:04 Discharge Ordered Location: Home rn Problem: new rn Symptoms: have improved rn Condition: Stable rn Diagnosis - Leakage of nephrostomy catheter, initial encounter rn - Other mechanical complication of nephrostomy catheter, initial encounter rn - Dehydration rn Followup: rn - With: Jaya Nogueira MD - When: As needed - Reason: Recheck today's complaints, Re-evaluation by your physician Discharge Instructions: - Discharge Summary Sheet rn - Dehydration, Adult rn - Percutaneous Nephrostomy, Care After rn - Percutaneous Nephrostomy Home Guide rn Forms: - Medication Reconciliation Form rn - Thank You Letter rn - Antibiotic hospital internship - Prescription Opioid Use rn Signatures: Dispatcher [employer] Jesús Hansen MD MD rn Prokisch Olga, RN RN ap3 Au-Stager, Mary RN RN britton Corrections: (The following items were deleted from the chart) 14:01 13:05 Abdomen Pelvis W [email or web address] ordered. EDMS EDMS
[2021-10-17 16:42] VITALS: TEMP 97.9
[2021-10-17 16:45] VITALS: BP 141/72; O2SAT 94
--- NOTE | 2021-10-21 11:25 | EKG ---
Test Date: 2021-10-17 Test Time: 13:18:45 [employer]ley[employer] Assembler: FAUSTOUS MEASUREMENT RESULTS: Intervals: Rate: 103 CA: 142 QRSD: 62 QT: 324 QTc: 424 [place]: P: 48 CA: 142 QRS: 35 T: 44 INTERPRETIVE STATEMENTS: Sinus tachycardia Cannot rule out Anterior infarct, age undetermined Abnormal ECG Compared to ECG 10/08/2021 12:27:58 Myocardial infarct finding now present Electronically Signed On 10-21-21 11:14:09 CDT by Hugo Tucker
== END 2021-10-17 16:33 | disposition home or self-care (01) ==
LOC: ER 12:16
DX: T83.89XA Other specified complication of genitourinary prosthetic devices, implants and grafts, initial encounter (principal); E86.0 Dehydration; T83.032A Leakage of nephrostomy catheter, initial encounter; I10 Essential (primary) hypertension; E11.9 Type 2 diabetes mellitus without complications; Z79.4 Long term (current) use of insulin; J44.9 Chronic obstructive pulmonary disease, unspecified; E03.9 Hypothyroidism, unspecified; Z85.9 Personal history of malignant neoplasm, unspecified; Z88.0 Allergy status to penicillin; Z88.5 Allergy status to narcotic agent
CPT/HCPCS: 93005; 87040 ×2; 85025; 36415; 85610; 82565; 83605; 85730; 80053; 84145; 74176; 99284; J7040 ×2

== ENCOUNTER 2021-11-24 10:56 | Observation (INO) | payer OTHER ==
[2021-11-24 14:46] LABS: Absolute Lymphocytes (CBC) 0.7 K/uL (0.7-4.9); Hematocrit 22.1 % (36.0-45.0); Lymphocytes % 21.3 % (15.3-44.8); RBC Red Blood Cell Count 2.48 M/uL (3.86-4.86)
[2021-11-24 14:54] LABS: Protime INR 0.99
[2021-11-24 15:07] LABS: ALT/SGPT 37 U/L (12-78); AST/SGOT 29 U/L (15-37); BUN Blood Urea Nitrogen 23 mg/dL (7-18); Bicarbonate 29 mmol/L (21-32); Glucose Level 69 mg/dL (74-106); Potassium 4.5 mmol/L (3.5-5.1); Sodium Level 141 mmol/L (136-145)
[2021-11-24 15:08] LABS: Albumin 3.4 g/dL (3.4-5.0); Alkaline Phosphatase 89 U/L (45-117); Bilirubin Direct < 0.1 mg/dL (0-0.2); Bilirubin Total 0.2 mg/dL (0.2-1.0); Protein, Total 6.9 g/dL (6.4-8.2); Transferrin 196 mg/dL (200-360)
--- OUTSIDE RECORDS SUMMARY | 2021-11-25 12:04 | XMS REPORT | Continuity of Care Document ---
:1960 Author Organization [facility] t Address [address] [place] [address] Care Team Providers Name Role Phone GONZÁLEZ BROWN Primary Care Physician Unavailable Kevin Attending Clinician Unavailable Ricardo GA Attending Clinician Unavailable CATHY REYNOLDS Attending Clinician Unavailable EDEN Attending Clinician Unavailable ELIAS Attending Clinician Unavailable Neftali BECKFORD L Attending Clinician Bella GREGORY Attending Clinician Unavailable Bella Foreman Attending Clinician PEYTON Attending Clinician Unavailable ROSEMARY Admitting Clinician Unavailable ELIAS Admitting Clinician Unavailable MANUELA LUCIANO Admitting Clinician Unavailable Payers Payer Name Policy Type Policy Number Effective Date Expiration Date Bella rodriguez MEDICARE PART A [id number] 1998 2024 AND B 00:00:00 00:00:00 MEDICARE A B [id number] 1998 00:00:00 [place] [id number] 1999 00:00:00 [place] [id number] Problems Condition Condition Condition Status Onset Resolution Last Treating Co mments Source Name Details Category Date Date Treatment Clinician Date No known No known Disease NPI:1 83 active active [id number] problems problems Allergies, Adverse Reactions, Alerts Allergy Allergy Status Severity Reaction(s) Onset Inactive Treating Comm ents Source Name Type Date Date Clinician MORPHINE Allergy Active NPI:118 3-19 [id number] 00:00: 00 PENICILL Allergy Active Low Rash NPI:118 IN -19 [id number] 00:00: 00 NO KNOWN Drug Active NPI:183 ALLERGIE Class [id number] S Social History Social Habit Start Date Stop Date Quantity Comments Source Exposure to Not sure NPI:[id number] 1 SARS-CoV-2 (event) Tobacco use and 2021-07-25 2021-07-25 Never used NPI:[id number] [id number] exposure 00:00:00 00:00:00 Sex [birth year] At [birth year] NPI:[id number] 00:00:00 00:00:00 Smoking Status Start Date Stop Date Source Unknown if ever smoked NPI:[id number] 49359 Medications Ordered Filled Start Stop Current Ordering Indication Dosage Frequency Signature Comments Components Source Medication Medication Date Date Medication? Clinician (SIG) Name Name No known No NPI:183 medications 07-25 [id number] 10:38: 25 No known No NPI:183 medications 07-25 [id number] 10:38: 25 Vital Signs Vital Name Observation Time Observation Value Comments Source HEIGHT 2021-10-07 14:28:00 149.9 cm WEIGHT 2021-10-07 14:28:00 61.236 kg HEIGHT 2021-10-07 14:28:00 149.9 cm WEIGHT 2021-10-07 14:28:00 61.236 kg Systolic blood pressure 2021-07-25 16:54:00 144 mm[Hg] Diastolic blood 2021-07-25 16:54:00 72 mm[Hg] NPI:1 [id number] pressure Heart rate 2021-07-25 16:54:00 97 /min NPI:1831 [id number] Body height 2021-07-25 16:51:00 149.9 cm NPI:1831 [id number] Body weight 2021-07-25 16:51:00 60.102 kg NPI:1831 [id number] BMI 2021-07-25 16:51:00 26.76 kg/m2 NPI:1831 [id number] Oxygen saturation in 2021-07-25 16:51:00 98 /min Arterial blood by Pulse oximetry Procedures This patient has no known procedures. Encounters Start End Encounter Admission Attending Care Care Encounter Source Date/Time Date/Time Type Type Clinicians Facility Department ID 2021-09-12 Outpatient ALMA ROSA Brown [id number] NPI:174 08:56:03 Shad [id number] 2021-08-14 Outpatient ALMA ROSA Brown [facility] [id number] NPI:174 14:28:00 Shad [id number] 2021-08-14 Outpatient ALMA ROSA Brown [facility] [id number] NPI:174 13:49:49 Shad [id number] 2021-08-14 Outpatient ALMA ROSA Brown [facility] [id number] NPI:174 13:42:24 Shad [id number] 2021-03-01 Outpatient SURY [facility] [id number] NPI:152 01:03:54 ALEJANDRA [id number] 2021-10-24 2021-10-25 [facility] [id number] [facility] 19:35:00 16:54:00 VIDHI 2021-10-07 2021-10-07 [facility] Medicine [id number] [facility] 00:00:00 21:05:00 SIERRA 2021-07-25 2021-07-25 [place] [id number] NPI:183 11:13:13 23:59:00 Encounter [facility] [id number] [place] [id number] AFIA?BLEA [id number] [facility] [place] [facility] MEDICAL OFFICE BUILDING 2021-07-25 2021-07-25 Outpatient Stevenson GREGORY [facility] [id number] NPI:183 10:30:00 11:32:38 WILLOW [id number] 2021-07-25 2021-07-25 [id number] NPI:183 10:30:00 11:00:00 Visit [facility] [id number] [place] [id number] AFIA?BLEA [id number] [place] [address] MEDICAL OFFICE BUILDING 2021-01-27 2021-01-31 Inpatient E PEYTON, [facility] [address] [facility] 04:41:00 10:53:00 SANDRA Results Test Description Test Time Test Comments Results Result Sour e Comments ANG, NEPHROSTOMY 2021-10-25 Reason for TUBE CHANGE, RIGHT 17:23:00 exam:->R PCN is dislodged; [facility] 1960 Sex: F FINAL REPORT History: Displaced right external nephrostomy tube, hydronephrosis. PROCEDURE: Following informed written consent, the patient was placed in a prone position on the angiographic table and her existing right nephrostomy tube and surrounding skin site were prepped and draped in the usual sterile manner. 2% lidocaine was given locally for anesthesia. Additionally, the patient received 0.5 mg IV Versed and 25 mcg IV fentanyl for conscious sedation and pain control. Vital signs were monitored and remained stable. Conscious sedation and continuous patient monitoring were provided by the attending radiologist and a registered nurse for 20 minutes during the procedure. The existing nephrostomy catheter lay partially and and partially out of the subcutaneous soft tissues of the right flank and outside of the renal collecting system. Therefore, this catheter was cut and removed. Several unsuccessful attempts were made to recanalize the catheter tract using a Berenstein catheter and wire. When these attempts proved unsuccessful, a new access was gained to a posterior lower pole calyx using ultrasound guidance and a 21-gauge Chiba needle. An 018 wire was advanced centrally into the right renal collecting system. An AccuStick sheath was placed. A Bentson wire was coiled in the right renal collecting system. The tract was dilated and a new 8 Faroese external pigtail nephrostomy catheter was placed over the wire and coiled in expected position within the right renal pelvis using fluoroscopic control. The catheter was secured to the skin using 2-0 silk suture and placed to external gravity bag drainage. Overall, the patient tolerated the procedure well without immediate competitions and was discharged from the department in stable condition. FINDINGS: Images obtained of the pre-existing catheter show the catheter tip coiled in the soft tissues of the right flank outside of the renal collecting system. Opacified catheter tract shows no communication with the collecting system. Following new access and new nephrostomy tube placement, the nephrostomy tube is noted to lie in expected position with its tip coiled in the right renal pelvis. Moderate right-sided hydronephrosis is present. IMPRESSION: 1. Successful removal and replacement of the patient's completely dislodged right external nephrostomy catheter as described above. Total fluoroscopy time: 4.6 minutes. Estimated total patient is reported as (Ka,r): 11.3 mGy Signed: Gabriela Pedraza MDReport Verified Date/Time: 10/25/2021 17:23:23 Reading Location: [place] [address] Angio Body Reading Room -GLUCOSE METER 2021-10-25 11:34:54 Test Item Value Reference Range Interpretation Comme nts POC-GLUCOSE METER (BEAKER) 154 mg/dL 70-110 H : TESTED AT [facility] [address] [place] [address] (test code = 1538) [facility] [place] , [address]: Worship Pastor/Techni oseas ID = [id number] for Sherman Gabriel [id number] 04:39:09 Test Item Value Reference Range Interpretation Comments MAGNESIUM (BEAKER) (test code = 1.7 mg/dL 1.6-2.6 627) Worship Pastor ID - JEROME LBASIC METABOLIC [id number] 04:39:08 Test Item Value Reference Range Interpretation Comments SODIUM (BEAKER) 141 meq/L 136-145 (test code = 381) POTASSIUM (BEAKER) 4.6 meq/L 3.5-5.1 (test code = 379) CHLORIDE (BEAKER) 103 meq/L 98-107 (test code = 382) CO2 (BEAKER) (test 28 meq/L 22-29 code = 355) BLOOD UREA NITROGEN 27 mg/dL 7-21 H (BEAKER) (test code = 354) CREATININE (BEAKER) 1.56 mg/dL 0.57-1.25 H (test code = 358) GLUCOSE RANDOM 185 mg/dL 70-105 H (BEAKER) (test code = 652) CALCIUM (BEAKER) 8.8 mg/dL 8.4-10.2 (test code = 697) EGFR (BEAKER) (test 34 mL/min/1.73 ESTIMA MENDEL GFR IS code = 1092) sq m NOT ACCURATE CREATININE CLEARANCE IN PREDICTING GLOMERULAR FILTRATION RATE . ESTIMATED GFR I S NOT APPLICABLE FOR DIALYSIS PATIEN TS. Worship Pastor ID - PIAYA [id number] 04:38:47 Test Item Value Reference Range Interpretation Comments PARTIAL THROMBOPLASTIN TIME 26.8 seconds 22.5-36.0 (BEAKER) (test code = 760) PROTHROMBIN [id number] 04:38:04 Test Item Value Reference Range Interpretation Comments PROTIME (BEAKER) 12.6 seconds 11.9-14.2 (test code = 759) INR (BEAKER) (test 0.96 See_Comment [Automat ed message] code = 370) The system Multistat generated this result transmitted ref erence range: <=5.90. The reference range was not used to int erpret this result as normal/abnormal . RECOMMENDED COUMADIN/WARFARIN INR THERAPY RANGESSTANDARD DOSE: 2.0 - 3.0 Includes: PROPHYLAXIS forvenous thrombosis, systemic embolization; TREATMENT for venous thrombosis and/or pulmonary embolus.HIGH RISK: Target INR is 2.5-3.5 for patients with mechanical heart valves.CBC (HEMOGRAM ONLY)2021-10-25 04:19:03 Test Item Value Reference Range Interpretation Comments WHITE BLOOD CELL COUNT (BEAKER) 5.0 K/ L 3.5-10.5 (test code = 775) RED BLOOD CELL COUNT (BEAKER) 3.63 M/ L 3.93-5.22 L (test code = 761) HEMOGLOBIN (BEAKER) (test code = 10.5 GM/DL 11.2-15.7 L 410) HEMATOCRIT (BEAKER) (test code = 32.7 % 34.1-44.9 L 411) MEAN CORPUSCULAR VOLUME (BEAKER) 90.1 fL 79.4-94.8 (test code = 753) MEAN CORPUSCULAR HEMOGLOBIN 28.9 pg 25.6-32.2 (BEAKER) (test code = 751) MEAN CORPUSCULAR HEMOGLOBIN CONC 32.1 GM/DL 32.2-35.5 L (BEAKER) (test code = 752) RED CELL DISTRIBUTION WIDTH 13.6 % 11.7-14.4 (BEAKER) (test code = 412) PLATELET COUNT (BEAKER) (test 134 K/CU MM 150-450 L code = 756) MEAN PLATELET VOLUME (BEAKER) 10.1 fL 9.4-12.3 (test code = 754) NUCLEATED RED BLOOD CELLS 0 /100 WBC 0-0 (BEAKER) (test code = 413) SARS-COV2/RT-PCR ([facility])2021-10-24 21:35:12 Test Item Value Reference Range Interpretation Comments SARS-COV2/RT-PCR Negative Negative The SARS-Co V-2 target (test code = nucleic acids a re not [id number]) detected in thi s specimen. Negative result s do not preclude SARS-C oV-2 infection and s hould not be used as the tiana e basis for patient managem ent decisions. Nega tive results must be combine d with clinical observ ations, patient history , and epidemiological information. A false negativ e result may occur if a spec imen is improperly italo ected, transported or handled. This SARS CoV-2 test is a rapid, real-cory e RT-PCR test intended for th e qualitative detection of nu cleic acid from SARS-CoV-2 in a nasopharyngeal swab specimen collected from individuals suspected of CO VID-19 by their healthcar e provider. This test has been authorized by FDA under an EUA for use by authorized laboratories. This test is only authorized for the duration of the declaration that circumstances exist justifying the authorization of emergency use of in vitro diagnostic tests for detection and/or diagnosis of COVID-19 under Section 564(b)(1) of the Federal Food, Drug and Cosmetic Act, 21 U.S.C. 360bbb- 3(b)(1), unless the authorization is terminated or revoked sooner. Fact Sheet for Healthcare Providers: https://www.Curazy.Exos/Documents/Xpert%20Xpress%20SARS%20CoV-2/Fact%20Sheets/302-3802%20SARS-COV -2%20HEALTHCARE%20PROVIDERS%20FACT%20SHEET.pdf Fact Sheet for Healthcare Patients: https://www.[employer]/Documents/Xpert %20Xpress%20SARS%20CoV-2/Fact%20Sheets/302-3801%62QQDQ-IXB-2%20PATIENT%20FACT%20 SHEET.pdfBABOURBON COMMUNITY [facility] METABOLIC [id number] 21:01:51 Test Item Value Reference Range Interpretation Comments SODIUM (BEAKER) 140 meq/L 135-148 (test code = 381) POTASSIUM (BEAKER) 4.6 meq/L 3.6-5.5 (test code = 379) CHLORIDE (BEAKER) 103 meq/L 98-106 (test code = 382) CO2 (BEAKER) (test 28 meq/L 24-32 code = 355) BLOOD UREA NITROGEN 27 mg/dL 10-26 H (BEAKER) (test code = 354) CREATININE (BEAKER) 1.71 mg/dL 0.50-1.20 H (test code = 358) GLUCOSE RANDOM 270 mg/dL 70-110 H (BEAKER) (test code = 652) CALCIUM (BEAKER) 8.6 mg/dL 8.5-10.5 (test code = 697) EGFR (BEAKER) (test 30 mL/min/1.73 ESTIMA MENDEL GFR IS code = 1092) sq m NOT ACCURATE CREATININE CLEARANCE IN PREDICTING GLOMERULAR FILTRATION RATE . ESTIMATED GFR I S NOT APPLICABLE FOR DIALYSIS PATIEN TS. [id number] 21:01:03 Test Item Value Reference Range Interpretation Comments PROTIME (BEAKER) (test 10.4 seconds 9.8-12.0 code = 759) INR (BEAKER) (test 0.95 See_Comment [Automat ed code = 370) message] The sy stem which generated this result transmitted reference range : <=5.90. The reference range was not used to interpret this result as normal/abnormal . PARTIAL THROMBOPLASTIN 21.6 seconds 25.8-34.5 L TIME (BEAKER) (test code = 760) RECOMMENDED COUMADIN/WARFARIN INR THERAPY RANGESSTANDARD DOSE: 2.0 - 3.0 Includes: PROPHYLAXIS forvenous thrombosis, systemic embolization; TREATMENT for venous thrombosis and/or pulmonary embolus.HIGH RISK: Target INR is 2.5-3.5 for patients with mechanical heart valves.CBC W/PLT COUNT & AUTO DIFFERENTIAL 2021-10-24 20:56:22 Test Item Value Reference Range Interpretation Comments WHITE BLOOD CELL COUNT (BEAKER) 4.4 K/ L 4.0-10.0 (test code = 775) RED BLOOD CELL COUNT (BEAKER) 3.77 M/ L 4.00-5.00 L (test code = 761) HEMOGLOBIN (BEAKER) (test code = 10.7 GM/DL 12.0-15.0 L 410) HEMATOCRIT (BEAKER) (test code = 32.7 % 36.0-45.0 L 411) MEAN CORPUSCULAR VOLUME (BEAKER) 86.6 fL 82.0-99.0 (test code = 753) MEAN CORPUSCULAR HEMOGLOBIN 28.4 pg 27.0-33.0 (BEAKER) (test code = 751) MEAN CORPUSCULAR HEMOGLOBIN CONC 32.8 GM/DL 32.0-36.0 (BEAKER) (test code = 752) RED CELL DISTRIBUTION WIDTH 14.3 % 10.3-14.2 H (BEAKER) (test code = 412) PLATELET COUNT (BEAKER) (test 173 K/CU MM 150-430 code = 756) MEAN PLATELET VOLUME (BEAKER) 7.5 fL 6.5-10.5 (test code = 754) NEUTROPHILS RELATIVE PERCENT 60 % (BEAKER) (test code = 429) LYMPHOCYTES RELATIVE PERCENT 24 % (BEAKER) (test code = 430) MONOCYTES RELATIVE PERCENT 15 % (BEAKER) (test code = 431) EOSINOPHILS RELATIVE PERCENT 1 % (BEAKER) (test code = 432) BASOPHILS RELATIVE PERCENT 1 % (BEAKER) (test code = 437) NEUTROPHILS ABSOLUTE COUNT 2.64 K/ L 1.80-8.00 (BEAKER) (test code = 670) LYMPHOCYTES ABSOLUTE COUNT 1.06 K/ L 1.48-4.50 L (BEAKER) (test code = 414) MONOCYTES ABSOLUTE COUNT (BEAKER) 0.64 K/ L 0.00-1.30 (test code = 415) EOSINOPHILS ABSOLUTE COUNT 0.04 K/ L 0.00-0.50 (BEAKER) (test code = 416) BASOPHILS ABSOLUTE COUNT (BEAKER) 0.03 K/ L 0.00-0.20 (test code = 417) CT, [id number] 20:39:00Dislodged/leaking right PCN tubeUnlisted Reason for Exam - Click Yes and Enter Reason Below->NoIsthis for enterography?- >NoWill this procedure require oral contrast?->No [facility] 1960 Sex: FFINAL REPORT CLINICAL HISTORY: History of urothelial carcinoma, decreased output from right nephrostomy drain FINDINGS: Multiple axial images of the abdomen and pelvis were performed without intravenous contrast. Oral contrast was not given. This exam was performed according to our departmental dose-optimization program, which includes automated exposure control, adjustment of the mA and/or kV according to patient size and/or use of the iterative reconstruction technique. Comparison:None. Lower chest: Clear lungs. No pleural effusion or pneumothorax. Visualized cardiaccontours normal. Liver: No significant findings. Gallbladder and biliary tree: Previous cholecystectomy Spleen: Punctate calcified granulomas in the spleen Adrenal Glands: No significant findings. Kidneys and ureters: A right-sided percutaneous nephrostomy tube tip has been retracted and is now withinthe subcutaneous tissues of the right posterior flank. There is mild right-sided hydronephrosis and proximal hydroureter. The distal right ureter is decompressed. 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 Stomach and Duodenum: No significant findings. Pancreas: No significant findings. Bowel: No significant findings. Appendix: Normal. Bladder: Asymmetrical mural thickening of the partially decompressed urinary bladder. Major vascular structures: Atherosclerotic calcifications Reproductive organs: No significant findings. Other: No free air, fluid or adenopathy Skeleton:No acute bony abnormality. IMPRESSION: Malpositioned right-sided percutaneous nephrostomy catheter. The catheter tip is in the subcutaneous tissues. Mild right hydronephrosis and proximal hydroureter. The distal right ureter is relatively decompressed. This may relate to a ureteral lesion. Additionally, there is asymmetrical mural thickening of the bladder, which may relate to decompression or a bladder lesion. Please correlate with urologic history. Ectopic left kidney. Signed: John Griffin MDReport Verified Date/Time: 10/24/2021 20:39:26 ANG, NEPHROSTOMY TUBE CHANGE, [id number] 18:36:00Initial placementReason for Exam:->Mass of right Kidney; transitional cell carcinoma of right kidney; ureteral structure right [facility] 1960 Sex: FFINAL REPORT History: Right urinary obstruction PROCEDURE: Following [...] The tract was dilated and an 8.5 Faroese pigtail external nephrostomy catheter was placed over the wire and into position within the right renal pelvis under fluoroscopic guidance. Repeat contrast injection was performed to confirm position. Overall, the patient tolerated the procedure well without immediatecomplications and was discharged from the department in [...] of the right kidney performed during the procedureshows mildly dilated collecting system and calyces consistent with hydronephrosis. These images wereobtained and archived to PACS. IMPRESSION: 1. Successful uncomplicated image guided placement of an 8 Faroese right external nephrostomy catheter. Total fluoroscopy time: 3.8 minutes. Estimated total p atient is reported as (Ka,r): 2.6 mGy Signed: Gabriela Pedraza Verified Date/Time: 8:36:36 Reading Location: [facility] Diagnostic Imaging [address] PROTHROMBIN [id number] 12:13:07 Test Item Value Reference Range Interpretation Comments PROTIME (BEAKER) 13.2 seconds 11.9-14.2 (test code = 759) INR (BEAKER) (test 1.02 See_Comment [Automat ed message] code = 370) The system Multistat generated this result transmitted ref erence range: <=5.90. The reference range was not used to int erpret this result as normal/abnormal . RECOMMENDED COUMADIN/WARFARIN [...] % 0-1 PERCENT (BEAKER) (test code = 2801)
--- NOTE | 2021-11-25 13:11 | P.SSS ---
Patient History Date of Service: 11/25/21 Reason for admission: ANEMIA SEVERE History of Present Illness: ADRIANA IS A BLADDER CANCER PATIENT WITH COPD, HYPOXIA, HOME OXYGEN, FRAGILE X SYNDROME HAD RTN LAB AND HAD HG OF 7.5 GM WITH HER COMORBIDIITIES SHE QUALIFIES FOR BLOOD. SHE WILL RECEIVE TWO UNITS AND WILL GO HOME AFTER THAT. HG IS LOW MAINLY FROM CHEMO. NO SIGNS OF BLOOD LOSS. SHE IS STABLE. Allergies Penicillins Allergy (Intermediate, Verified 10/15/21 08:40) Rash latex Allergy (Verified 10/15/21 08:40) Hives/Rash morphine Allergy (Verified 10/15/21 08:40) Itching/Agitation Home Medications: Atorvastatin Calcium 10 mg PO BEDTIME 04/27/21 Levothyroxine [Synthroid*] 75 mcg PO [id number] 04/27/21 Montelukast [Singulair*] 10 mg PO DAILY 04/27/21 methocarbamoL [Methocarbamol] 500 mg PO BEDTIME 04/27/21 Hydrocodone Bit/Acetaminophen [Hydrocodon-Acetaminophn 10-325] 1 each PO Q6HP PRN 06/12/21 ARIPiprazole [Aripiprazole] 2 mg PO BEDTIME 09/03/21 Mirtazapine [Remeron*] 15 mg PO BEDTIME 09/03/21 Venlafaxine HCl [Venlafaxine HCl ER] 150 mg PO BEDTIME 09/03/21 Gabapentin 100 mg PO BEDTIME 10/08/21 Insulin Glargine,Hum.rec.anlog [Lantus Solostar] 18 unit SQ BEDTIME 10/08/21 Insulin Lispro [Humalog Kwikpen U-100] 10 unit SQ BREAKFAST 10/08/21 Omeprazole [Prilosec] 40 mg PO DAILY 10/08/21 Cefuroxime [Ceftin*] 250 mg PO BID #20 tab 10/10/21 Ciprofloxacin HCl [Cipro 500 MG Tablet] 500 mg PO BID #14 tab 10/15/21 - Past Medical/Surgical History Diabetic: Yes -: MR/developmental delay -: COPD -: hyperthyroid -: DM -: gastric reflux -: urinary incontinence -: ileostomy -: tubal ligation -: cholecystectomy > 10 yrs -: renal stent placement Right 03/2021 -: ileostomy - Family History Father -: Stroke Mother -: Cancer, Blood disorders Brother -: Seizures Notes: - Social History Alcohol use: No CD- Drugs: No Caffeine use: Yes Physical Examination - Physical Exam General: Mild distress, Other (LONGO FACE. ) HEENT: Atraumatic, PERRLA, Mucous membr. moist/pink, EOMI, Sclerae nonicteric Neck: Supple, 2+ carotid pulse no bruit, No LAD, Without JVD or thyroid abnormality Respiratory: Clear to auscultation bilaterally, Normal air movement Cardiovascular: Regular rate/rhythm, Normal S1 S2 Gastrointestinal: Normal bowel sounds, No tenderness Musculoskeletal: No tenderness Integumentary: No rashes Neurological: Normal gait, Normal speech, Normal strength at 5/5 x4 extr, Normal tone, Normal affect Lymphatics: No axilla or inguinal lymphadenopathy - Studies Laboratory Data (last 24 hrs) 11/24/21 14:16: PT 10.9, INR 0.99, APTT 33.1 11/24/21 14:16: Sodium 141, Potassium 4.5, BUN 23 H, Creatinine 1.34 H, Glucose 69 L, Total Bilirubin 0.2, AST 29, ALT 37, Alkaline Phosphatase 89 11/24/21 14:16: WBC 3.1 L, Hgb 7.5 L, Hct 22.1 L, Plt Count 258 - Diagnosis (Problem(s)) (1) Anemia associated with chemotherapy Current Visit: Yes Status: Acute Plan: TRANSFUSE ABOVE. FU IN OFFICE. CHEMO TO FINISH IN AM. (2) Fragile X syndrome Onset Date: 03/08/18 Current Visit: No Status: Chronic - Disposition Disposition: ROUTINE DISCHARGE
[2021-11-25 13:20] VITALS: BP 126/64; TEMP 97.6
[2021-11-25] MEDS ORDERED: NA CHLORIDE 0.9% 0 ML ONE (13:54)
[2021-11-25] MEDS ORDERED: NA CHLORIDE 0.9% 1,000 ML ONE (13:56)
[2021-11-25] MEDS ORDERED: NA CHLORIDE 0.9% 1,000 ML IV SCH (15:00)
[2021-11-25 22:01] LABS: Hematocrit 32.4 % (36.0-45.0)
[2021-11-26 09:42] VITALS: O2SAT 92
[2021-11-27 21:25] LABS: Albumin, (SPE) 3.7 g/dL (3.8-4.8); Alpha-1-Globulins 0.6 g/dL (0.2-0.3); Alpha-2-Globulins 0.7 g/dL (0.5-0.9); Gamma Globulins 0.7 g/dL (0.8-1.7); INTERPRETATION REPORT
== END 2021-11-26 09:00 | disposition home or self-care (01) ==
LOC: 2ND-WC 11-25 12:01
PROVIDERS: ADMIT Internal Medicine; ATTEND Internal Medicine
PROC: 30233N1 Transfusion of Nonautologous Red Blood Cells into Peripheral Vein, Percutaneous Approach (ICD-10-PCS; principal; 2021-11-25)
DX: D64.81 Anemia due to antineoplastic chemotherapy (principal); C67.9 Malignant neoplasm of bladder, unspecified; J44.9 Chronic obstructive pulmonary disease, unspecified; R09.02 Hypoxemia; Q99.2 Fragile X chromosome; E11.9 Type 2 diabetes mellitus without complications; F89 Unspecified disorder of psychological development; F79 Unspecified intellectual disabilities; E05.90 Thyrotoxicosis, unspecified without thyrotoxic crisis or storm; K21.9 Gastro-esophageal reflux disease without esophagitis; R32 Unspecified urinary incontinence; Z99.81 Dependence on supplemental oxygen; Z79.4 Long term (current) use of insulin; Z79.899 Other long term (current) drug therapy; Z88.0 Allergy status to penicillin; Z88.5 Allergy status to narcotic agent; Z91.040 Latex allergy status; Z98.51 Tubal ligation status; Z93.2 Ileostomy status; Z90.49 Acquired absence of other specified parts of digestive tract; Z20.822 Contact with and (suspected) exposure to COVID-19; Z82.3 Family history of stroke; Z82.0 Family history of epilepsy and other diseases of the nervous system; Z80.9 Family history of malignant neoplasm, unspecified; Z83.2 Family history of diseases of the blood and blood-forming organs and certain disorders involving the immune mechanism
CPT/HCPCS: 36430; 85025; 80048; 36415 ×2; 86900; 86850; 85610; 85044; 86901; 82947 ×2; 80076; 85730; 85018; 85014; 83036; 82607; 83540; 84466; 84165; U0003; G0378 ×2; P9016 ×2; J7030

== ENCOUNTER 2021-12-12 15:50 | Emergency (ER) | payer OTHER ==
--- OUTSIDE RECORDS SUMMARY | 2021-12-12 15:55 | XMS REPORT | Continuity of Care Document ---
:1960 Author Organization [facility] t Address [address] [place] [address] Dr. [address] [place] [address] Care Team Providers Name Role Phone PCP, DOES NOT HAVE A Primary Care Physician Unavailable Kevin Attending Clinician [...] Expiration Date Bella rodriguez MEDICARE PART A [id number] 1998 2024 AND B 00:00:00 00:00:00 MEDICARE A B [id number] 1998 00:00:00 MEDICAID [place] [id number] 1999 00:00:00 MEDICAID [facility] [id number] Problems Condition Condition Condition Status Onset Resolution Last Treating Co mments Source Name Details Category Date Date Treatment Clinician Date No known No known Disease Unive rs active active ity of problems problems [facility] [place] [facility] Allergies, Adverse Reactions, Alerts Allergy Allergy Status Severity Reaction(s) Onset Inactive Treating Comm ents Source Name Type Date Date Clinician MORPHINE [facility] [place] Allergy Active Low Rash [facility] [place] NO KNOWN Drug Active [facility] ALLERGIE Class ity of S [facility] Social History Social Habit Start Date Stop Date Quantity Comments Source Exposure to Not sure [facility] SARS-CoV-2 (event) Medica l Branch Tobacco use and 2021-07-25 2021-07-25 Never used [facility] exposure 00:00:00 00:00:00 [facility] Branch Sex Ass[birth year] At [birth year] [facility] 00:00:00 00:00:00 Medical Branch Smoking Status Start Date Stop Date Source Unknown if ever smoked [facility] Medications Ordered Filled Start Stop Current Ordering Indication Dosage Frequency Signature Comments Components Source Medication Medication Date Date Medication? Clinician (SIG) Name Name No known No [facility] medications -06 ity of 10:38: [address] No known No [facility] medications -06 ity of 10:38: [address] Vital Signs Vital Name Observation Time Observation Value Comments Source HEIGHT 2021-10-07 14:28:00 149.9 cm WEIGHT 2021-10-07 14:28:00 61.236 kg HEIGHT 2021-10-07 14:28:00 149.9 cm WEIGHT 2021-10-07 14:28:00 61.236 kg Systolic blood 2021-07-25 16:54:00 144 mm[Hg[facility] Diastolic blood 2021-07-25 16:54:00 72 mm[Hg] [facility] Heart rate 2021-07-25 16:54:00 97 /min [facility] Body height 2021-07-25 16:51:00 149.9 cm [facility] Body weight 2021-07-25 16:51:00 60.102 kg [facility] BMI 2021-07-25 16:51:00 26.76 kg/m2 [facility] Oxygen saturation 2021-07-25 16:51:00 98 /min [facility] in Arterial blood Medical Br anch by Pulse oximetry Procedures This patient has no known procedures. Encounters Start End Encounter Admission Attending Care Care Encounter Source Date/Time Date/Time Type Type Clinicians Facility Department ID 2021-09-12 [facility] [id number] Common 08:56:03 Shad [facility] 2021-08-14 Outpatient ALMA ROSA Brown [facility] [id number] Common 14:28:00 Shad [id number] [facility] 2021-08-14 Outpatient ALMA ROSA Brown [facility] [id number] Common 13:49:49 Shad [id number] [facility] 2021-08-14 Outpatient ALMA ROSA Brown [facility] [id number] Common 13:42:24 Shad [id number] [facility] 2021-03-01 [facility] [id number] [place] 01:03:54 [facility] 2021-10-24 2021-10-25 [facility] [id number] [facility] 19:35:00 16:54:00 VIDHI 2021-10-07 2021-10-07 [facility] [id number] [facility] 00:00:00 21:05:00 SIERRA 2021-07-25 2021-07-25 [facility] [id number] Univers 11:13:13 23:59:00 Encounter [facility] M2TECH 350..13.10 jaida [facility] [id number] [place] AFIA?BLEA [id number] Pr dical [address] MEDICAL OFFICE BUILDING 2021-07-25 2021-07-25 Outpatient Stevenson GREGORY [facility] [id number] Univers 10:30:00 11:32:38 WILLOW sena [facility] 2021-07-25 2021-07-25 [facility] [id number] Univers 10:30:00 11:00:00 Visit [facility] [id number] it alex of BATTIEST [id number] [place] AFIA?BLEA [id number] Pr brayan [address] MEDICAL OFFICE BUILDING 2021-01-27 2021-01-31 Inpatient E PEYTON, [facility] [id number] [facility] 04:41:00 10:53:00 SANDRA Results Test Description Test Time Test Comments Results Result [facility] e Comments ANG, NEPHROSTOMY 2021-10-25 Reason for TUBE CHANGE, RIGHT 17:23:00 exam:->R PCN is dislodged; needs replacement [facility] 1960 Sex: F FINAL [...] tract was dilated and a new 8 Swazi external pigtail nephrostomy catheter was placed over [...] MDReport Verified Date/Time: 10/25/2021 17:23:23 Reading Location: [place] [address] Angio Body Reading Room -GLUCOSE METER 2021-10-25 11:34:54 Test Item Value Reference Range Interpretation Comme nts POC-GLUCOSE METER (BEAKER) 154 mg/dL 70-110 H : TESTED AT [address] (test code = 1538) [place] [address]: Cp Bleacher Operator/Techni oseas ID = [id number] for Sherman Gabriel [id number] 04:39:09 Test Item Value Reference Range Interpretation Comments MAGNESIUM (BEAKER) (test code = 1.7 mg/dL 1.6-2.6 627) Cp Bleacher Operator ID - JEROME LBASIC METABOLIC [id number] 04:39:08 Test Item Value Reference Range Interpretation [...] S NOT APPLICABLE FOR DIALYSIS PATIEN TS. Cp Bleacher Operator ID - JEROME [id number] 04:38:47 Test Item Value Reference Range Interpretation Comments PARTIAL THROMBOPLASTIN TIME 26.8 seconds 22.5-36.0 (BEAKER) (test code = 760) PROTHROMBIN TIME/[id number] 04:38:04 Test Item Value Reference Range Interpretation Comments PROTIME (BEAKER) 12.6 seconds 11.9-14.2 (test code = 759) INR (BEAKER) (test 0.96 See_Comment [Automat ed message] code = 370) The system [employer]wh[employer] generated this result transmitted ref erence range: [...] 0-0 (BEAKER) (test code = 413) SARS-COV2/RT-PCR ([facility])2021-10-24 21:35:12 Test Item Value Reference Range Interpretation Comments SARS-COV2/RT-PCR Negative Negative The SARS-Co V-2 target (test code = nucleic acids a re not [id number]) detected in thi s specimen. Negative result [...] revoked sooner. Fact Sheet for Healthcare Providers: https://www.[employer]/Documents/Xpert%20Xpress%20SARS%20CoV-2/Fact%20Sheets/302-3802%20SARS-COV -2%20HEALTHCARE%20PROVIDERS%20FACT%20SHEET.pdf Fact Sheet for Healthcare Patients: https://www.[employer]/Documents/Xpert %20Xpress%20SARS%20CoV-2/Fact%20Sheets/302-3801%69SVIW-BTT-9%20PATIENT%20FACT%20 SHEET.pdfBASI METABOLIC [id number] 21:01:51 Test Item Value Reference Range Interpretation [...] S NOT APPLICABLE FOR DIALYSIS PATIEN TS. PT/[id number] 21:01:03 Test Item Value Reference Range Interpretation [...] L 0.00-0.20 (test code = 417) CT, [id number] 20:39:00Dislodged/leaking right PCN tubeUnlisted Reason for Exam - Click Yes and Enter Reason Below->NoIsthis for enterography?- >NoWill this procedure require oral contrast?->No [facility] : 1960 Sex: FFINAL [...] Date/Time: 10/24/2021 20:39:26 ANG, NEPHROSTOMY TUBE CHANGE, [id number] 18:36:00Initial placementReason for Exam:->Mass of right Kidney; transitional cell carcinoma of right kidney; ureteral structure right [facility] 1960 Sex: FFINAL REPORT [...] The tract was dilated and an 8.5 Swazi pigtail external nephrostomy catheter was placed over [...] uncomplicated image guided placement of an 8 Swazi right external nephrostomy catheter. Total fluoroscopy time: 3.8 minutes. Estimated total p atient is reported as (Ka,r): 2.6 mGy Signed: Gabriela Pedraza Verified Date/Time: 8:36:36 Reading Location: [facility] Diagnostic Imaging [place] Room [address] PROTHROMBIN [id number] 12:13:07 Test Item Value Reference Range Interpretation Comments PROTIME (BEAKER) 13.2 seconds 11.9-14.2 (test code = 759) INR (BEAKER) (test 1.02 See_Comment [Automat ed message] code = 370) The system Songwh[employer] generated this result transmitted ref erence range: [...]
[2021-12-12 18:27] LABS: Urine Blood 3+ (Negative); Urine Glucose Negative (Negative); Urine Protein 3+ (Negative)
[2021-12-12] MEDS ORDERED: SMZ./TMP. 800/160 MG TABLET ONE (18:36)
[2021-12-12] MEDS ORDERED: CEFTRIAXONE 1000 MG/VIAL ONE (18:36)
[2021-12-12] MEDS ORDERED: FENTANYL CITR 100 MCG/2 ML ONE (18:36)
[2021-12-12] MEDS ORDERED: ONDANSETRON 4 MG/2 ML VIAL ONE (18:37)
[2021-12-12] MEDS ORDERED: NA CHLORIDE 0.9% 500 ML ONE (18:37)
[2021-12-12 18:47] LABS: Absolute Lymphocytes (CBC) 1.3 K/uL (0.7-4.9); Hematocrit 31.7 % (36.0-45.0); Lymphocytes % 15.1 % (15.3-44.8)
[2021-12-12 19:00] LABS: Albumin 3.4 g/dL (3.4-5.0); Bilirubin Total 0.4 mg/dL (0.2-1.0); Protein, Total 7.4 g/dL (6.4-8.2)
--- NOTE | 2021-12-12 19:21 | RAD REPORT ---
EXAM DESCRIPTION: CT - Stone Protocol - 12/12/2021 7:02 pm CLINICAL HISTORY: Abdominal pain. Flank pain COMPARISON: September 2021 TECHNIQUE: Computed axial tomography of the abdomen pelvis was obtained without oral or IV contrast. Lack of IV and oral contrast limits evaluation of solid organs, bowel, and vessels. Coronal reformat tomas images were obtained and reviewed. All CT scans are performed using dose optimization technique as appropriate and may include automated exposure control or mA/KV adjustment according to patient size. FINDINGS: Percutaneous right nephrostomy tube in good position. No hydronephrosis. Right ureter is n ormal caliber. A genitourinary calculus is not seen. The left kidney lies within the pelvis. No hydro nephrosis. Cholecystectomy The liver, spleen, pancreas and adrenals appear grossly normal There is no evidence of diverticulitis. Tubal ligation clips are present. No adnexal mass Moderate scoliosis IMPRESSION: Percutaneous right nephrostomy tube in good position. No hydronephrosis. Genitourinary c alculus is not seen
--- NOTE | 2021-12-12 19:23 | ER ---
Nurse's Notes [facility] Name: Latisha Hernandez Age: 61 yrs Sex: Female : 1960 Arrival Date: 12/12/2021 Time: 15:59 Bed 6 Private MD: Diagnosis: UTI/ Urinary tract infection, site not specified-right Neprostomy tube;Unspecified kidney failure-insufficency Presentation: 12/12 16:33 Chief complaint: Patient states: sister states pt has a nephrostomy tube placed on vg1 Right side of back and states pt woke up this morning around 0300 with pain at site and noticed drainage, yellow in color. Coronavirus screen: Vaccine status: Patient reports receiving the 2nd dose of the covid vaccine. Client denies travel out of the [place] in the last 14 days. Ebola Screen: Patient denies exposure to infectious person. Patient denies travel to an Ebola-affected area in the 21 days before illness onset. Initial Sepsis Screen: Does the patient meet any 2 criteria? No. Patient's initial sepsis screen is negative. Does the patient have a suspected source of infection? No. Patient's initial sepsis screen is negative. Risk Assessment: Do you want to hurt yourself or someone else? Patient reports no desire to harm self or others. Onset of symptoms was December 12, 2021. 16:33 Method Of Arrival: Wheelchair vg1 16:33 Acuity: ANGEL 3 vg1 Triage Assessment: 16:39 General: Appears uncomfortable, Behavior is calm, cooperative. Pain: Complains of pain vg1 in right mid back Pain currently is 10 out of 10 on a pain scale. 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 - Social history:: Smoking status: Patient/guardian denies using tobacco. - Family history:: not pertinent. Screenin:56 Abuse screen: Denies threats or abuse. Denies injuries from another. Nutritional britton screening: No deficits noted. Tuberculosis screening: No symptoms or risk factors identified. Fall Risk Mental Status- Overestimates/Forgets Limitations (15 pts.). Assessment: 17:56 General: Appears in no apparent distress. Behavior is calm, cooperative. Pain: britton Complains of pain in right low back. : Reports right nephrostomy tube site is reddened, having yellow discharges and pain. Vital Signs: 16:33 BP 137 / 72; Pulse 96; Resp 20; Temp 99.1(O); Pulse Ox 97% on 1 lpm NC; Weight 54.43 vg1 kg; Height 4 ft. 11 in. (149.86 cm); Pain 10/10; 17:58 BP 153 / 64; Pulse 87; Resp 17; Pulse Ox 100% on 2 lpm NC; britton 19:26 BP 136 / 78; Pulse 85; Resp 16; Pulse Ox 100% ; vc1 16:33 Body Mass Index 24.24 (54.43 kg, 149.86 cm) vg1 ED Course: 15:59 Patient arrived in ED. rg4 16:39 Triage completed. vg1 16:39 Arm band placed on. vg1 17:51 Mary Valentine, RN is Primary Nurse. britton 17:56 Patient has correct armband on for positive identification. Bed in low position. Adult britton w/ patient. 17:56 No provider procedures requiring assistance completed. 18:05 Silvano Fernandez MD is Attending Physician. [facility] 18:25 Inserted saline lock: 22 gauge in right antecubital area, using aseptic technique. [facility] Blood collected. 18:25 COVID swab sent to lab. [facility] 18:43 COVID-19 SARS RT PCR (Document "Date of Onset" if Symptomatic) Sent. 19:01 CT Stone Protocol In Process Unspecified. EDMD 19:23 Jaya Nogueira MD is Referral Physician. [facility] 19:27 IV discontinued, intact, bleeding controlled, No redness/swelling at site. Pressure vc1 dressing applied. Administered Medications: 18:39 Drug: Zofran (Ondansetron) 4 mg Route: IVP; Site: right antecubital; [facility] 18:39 Drug: fentaNYL (PF) 25 mcg Route: IVP; Site: right antecubital; [facility] 18:39 Drug: Rocephin (cefTRIAXone) 1 grams Route: IV; Rate: per protocol; Site: right [facility] antecubital; 18:39 Drug: Bactrim (trimethoprim-sulfamethoxazole) (160 mg-800 mg (DS) 1 tablet Route: PO; [facility] 18:40 Drug: NS 0.9% 500 ml Route: IV; Rate: bolus; Site: right antecubital; [facility] Medication: 17:56 VIS not applicable for this client. Outcome: 19:23 Discharge ordered by . [facility] 19:27 Discharged to home ambulatory. vc1 19:27 Condition: good 19:27 Discharge instructions given to patient, Instructed on discharge instructions, follow up and referral plans. medication usage, Demonstrated understanding of instructions, follow-up care, medications, Prescriptions given X 1. 20:07 Patient left the ED. vc1 Signatures: Dispatcher [employer] EDMD Silvano Fernandez MD MD cha Garcia, Rubi rg4 Usha Denney RN RN vg1 Carol Juan RN RN [id number] Mary Valentine RN RN ha Calcote, Vanessa RN RN vc1 Corrections: (The following items were deleted from the chart) 16:40 16:39 Home Meds: meloxicam 15 mg Oral tab 1 tab once daily; vg1 vg1
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
[2021-12-12 20:26] VITALS: TEMP 99.1
[2021-12-12 20:28] VITALS: O2SAT 100
[2021-12-12 20:30] VITALS: BP 136/78
== END 2021-12-12 20:07 | disposition home or self-care (01) ==
LOC: ER 15:50
DX: N39.0 Urinary tract infection, site not specified (principal); N28.9 Disorder of kidney and ureter, unspecified; E11.9 Type 2 diabetes mellitus without complications; I10 Essential (primary) hypertension; E03.9 Hypothyroidism, unspecified; Z20.822 Contact with and (suspected) exposure to COVID-19; Z79.4 Long term (current) use of insulin; Z88.0 Allergy status to penicillin; Z88.5 Allergy status to narcotic agent
CPT/HCPCS: 87088; 85025; 87086; 36415; 87077 ×2; 87186 ×2; 81003; 83690; 80053; 76377; 74176; 96375; 96374; 99284; U0003; J3010; J7040; J2405

== ENCOUNTER 2021-12-24 08:30 | Day surgery (SDC) | payer OTHER ==
[2021-12-24] MEDS ORDERED: NA CHLORIDE 0.9% 1,000 ML ONE (09:04)
[2021-12-24] MEDS ORDERED: CIPROFLOXACIN 400mg IV 400 MG/200 ML BAG IV ONE (09:04)
[2021-12-24] MEDS ORDERED: propofoL 200 MG/20 ML VIAL IV ONE (10:04)
[2021-12-24] MEDS ORDERED: FENTANYL CITR 100 MCG/2 ML ONE (10:04)
[2021-12-24] MEDS ORDERED: ONDANSETRON 4 MG/2 ML VIAL ONE (10:04)
[2021-12-24] MEDS ORDERED: MIDAZOLAM HCL 2 MG/2 ML INJ ONE (10:04)
[2021-12-24] MEDS ORDERED: LIDOCAINE 1% MPF 5 ML VIAL ONE (10:06)
[2021-12-24] MEDS ORDERED: CEFTAZIDIME 1 GM in NA CHLORIDE 0.9% 100 ML IV ONE (11:00)
[2021-12-24] MEDS ORDERED: EPHEDRINE SULF 50 MG/ML VIAL ONE (11:44)
--- NOTE | 2021-12-24 12:27 | RAD REPORT ---
EXAM DESCRIPTION: RAD - Urethrocystogrphy Retrograde - 12/24/2021 12:20 pm FINDINGS: There were 18 portable KUB images obtained during fluoroscopic assisted placement of a rig ht ureteral stent. Images show stepwise placement of the stent. Percutaneous nephrostomy tube was alr anastasiia in place. No suspicious or unexpected finding. Fluoro time was 0.36 minutes.
[2021-12-24] MEDS ORDERED: HYDROCODONE/APAP 5/325 MG TAB PO PRN (13:03)
[2021-12-24 14:20] VITALS: BP 139/65; TEMP 97; O2SAT 95
--- NOTE | 2021-12-24 20:59 | OP ---
Surgeon: SIERRA GRIFFIN Preoperative Diagnoses: 1.Right proximal ureteral urothelial carcinoma. 2.Right hydronephrosis. Postoperative Diagnoses: 1.Right proximal ureteral urothelial carcinoma. 2.Right hydronephrosis. 3.Bladder lesion. Principal Procedures: 1.Cystoscopy. 2.Right retrograde pyelography. 3.Right antegrade pyelography. 4.Right ureteroscopy with ureteroscopic biopsy. 5.Right ureteral stent placement complicated/difficult. 6.Cystoscopy with bladder biopsies and fulguration. Findings: Progression of the right mid proximal ureteral stricture/tumor occupying now approximately 2-3 cm of the ureter, previously only occupying approximately 1 cm of the ureter. Erythematous blad umesh regions noted. Indication For Procedure: Ms. Hernandez is a 61-year-old woman with multiple medical comorbidities inclu ding COPD, hypothyroidism, insulin-dependent diabetes, neuropathy, cardiac disease, and GERD along wi th hyperlipidemia, who presented for evaluation of an obstructing right proximal ureteral lesion. Sh chelsey underwent diagnostic and staging ureteroscopy with biopsies, the first time nondiagnostic, but the second time revealing urothelial carcinoma. Because she is a poor surgical candidate for operative n ephroureterectomy, she was counseled about alternatives to include instillation of gemcitabine. Init ially this was done intravesically with the stent being left in place and allowing the chemotherapy t o reflux up the stent, but eventually, we placed a right nephrostomy tube and instilled the chemother apy in an antegrade fashion. She had extreme difficulty tolerating the chemotherapeutic course, with frequent infections requiring management and delay of care as well as infections resulting in need f or hospitalization and IV antimicrobial therapy. She also simply had difficulty tolerating the insti llation of the chemotherapy either via an intravesical or an intrarenal approach for the recommended instillation. The intrarenal instillation volume was also limited due to her ability to tolerate the distention of the renal capsule and potentially as lack of understanding of the purpose and necessit y for the procedures. As a result, after a very difficult period of evaluation, she presents today f or definitive repeat evaluation of the proximal ureteral lesion to see if the cancer has resolved and the resultant obstruction is removed or if residual disease is present and subsequent management nash l be required. Procedure In Detail: The patient was consented in the preoperative holding area before being transfe rred to the operative suite where general anesthesia was induced. Of note, the patient's family expr essed that they had a really difficult time getting her to come in for the surgery or for the chemoth erapy the last time it was administered because the patient had expressed that she did want to do any more treatments and she just wanted the nephrostomy tube out because she was having some discomfort in her right flank region. As a result, I explained to them the importance of the repeat evaluation to determine subsequent steps. Within the operating theater, she was placed under general anesthesia using an LMA, and ceftazidime 1 g was provided IV prior to the initiation of the procedure given the resistant Acinetobacter found in her nephrostomy tube culture. Of note, she had been taking Bactrim previously prescribed to which the other organism found in the nephrostomy culture was sensitive. H er bladder urine culture was unremarkable for infection. However, after the ceftazidime had been adm inistered and had at least 30 minutes for circulation, the procedure was begun using a 22-Niuean rigi d cystoscope to traverse the urethra and into the bladder with ease. The bladder was surveyed, and w hile there were no papillary mucosal lesions, foreign bodies or stones, there were erythematous patch es in the posterior region of the bladder wall toward the right as well as the anterior lateral wall on the right. As a result, the need to biopsy those areas was determined. However, before initiatin g the biopsies, I identified the right ureteral orifice and cannulated it using the tip of the Sensor wire and a 5-Niuean ureteral access catheter. A retrograde pyelogram was then performed using a 70:30 mixture of Omnipaque and saline using the 5-F rench ureteral access catheter. Contrast was injected and did propagate up the distal into the mid u reter where it would no longer continue progression toward the kidney and began the efflux in the anselmo dder. As a result, I advanced a 5-Niuean catheter further into the mid distal ureter and again injec tomas contrast using spot fluoroscopic imagery along the way. Again, the contrast went a little furthe r into the mid proximal ureter, but would pass no further and again effluxing into the bladder. I th us advanced the 5-Niuean ureteral access catheter to the point where contrast would no longer progres s, and there was obstruction at that level that prohibited passage further of the 5-Niuean ureteral a ccess catheter. Contrast injected at that location similarly revealed absence of passage of the cont rast into the proximal ureter and renal pelvis. The nephrostomy tube coil was noted fluoroscopically . As a result, I the nephrostomy tube from its attached bag and cleansed the hub and tubin g with ChloraPrep. I then utilized a 70:30 mixture of Omnipaque and saline to perform an antegrade n ephrostogram, and with distention of the renal pelvis and calices, I was able to have contrast that w ent down beyond the UPJ into the proximal ureter. Therefore, I was able to delineate a region of kenyatta ling defect in the ureter that was approximately a 3, maybe 4 cm in length across the mid proximal ur eter. As a result, I left the nephrostomy tube with a syringe attached keeping the contrast within t he renal pelvis, and I turned my attention back to her bladder. I passed a Sensor wire via the 5-[facility] ureteral access catheter, which was left in place in the mid distal ureter to dilate it, and I le ft the Sensor wire at the point of obstruction in the mid proximal ureter distally. I then performed direct vision semi-rigid ureteroscopy using pressurized normal saline to traverse the urethra into t he ureteral orifice and go up the distal into the mid and proximal ureter where the point of obstruct ion was encountered causing failure to pass using the Sensor wire, and what was apparent urothelial t umor was noted in that location. As a result, Pir[place]ha ureteroscopic biopsy forceps were used to take 2 different specimens from the tumor emanating into the ureteral lumen. These were sent for patholo gic analysis as right proximal ureteral biopsies. I then under direct vision was able to navigate th e Sensor wire via a point of patent ureteral lumen within the inferior right lateral component of the ureteral lumen at approximately 7 or 8 o'clock, and I was able to successfully navigate the Sensor w ron into the renal pelvis where a coil was observed fluoroscopically. I then decompressed the renal pelvis of iodinated contrast, and back-loaded the cystoscope over the Sensor wire. I then passed a 7 -Niuean by 26 cm double-J ureteral stent over the Sensor wire into the kidney where a coil was formed fluoroscopically and 1 within the bladder was seen cystoscopically. I then decompressed her bladder before refilling it and again survey cystoscopically. I identified again the erythematous regions o f the bladder in the right posterior wall and in the right anterior lateral wall, and I took the samp les from 3 locations, 1 in the posterior and 2 in the right anterior lateral wall. These were sent f or pathologic analysis as right posterior bladder wall biopsy and next right anterior lateral wall bl adder biopsy. I then used a Bugbee electrode and cautery setting of 30 to fulgurate the base of thes e bladder biopsies until there was no bleeding with the bladder completely decompressed. I then empt ied her bladder completely and the patient was taken out of the lithotomy position. I then cut the s uture securing the nephrostomy tube to her flank and cut the nephrostomy tube removing it with the co il intact. A bandage dressing was placed over her flank, and she was awakened from general anesthesi a. She was then transferred to a stretcher and then to the recovery room in good condition. Complications: None. Discharge Disposition: Given the progression of her upper tract urothelial carcinoma, her only likel y successful treatment option would be to consider intravesical BCG, though I suspect she is otherwis e too ill and too high risk to be subjected to the potential infectious complications of the BCG, and otherwise she might be a candidate for intravenous chemotherapy, though I think her performance stat us would be too low for that. As a result, she may be a very reluctant surgical candidate for right nephroureterectomy. This will be discussed with colleagues in a tumor board type setting as well as the family on followup, which should occur within the next 3 weeks to expedite subsequent planning an d management. DAVID/SANTOS Voice ID: [id number] Report ID: [id number]
== END 2021-12-24 14:00 | disposition home or self-care (01) ==
LOC: OR 08:30
PROVIDERS: ATTEND Urology
PROC: 0T9680Z Drainage of Right Ureter with Drainage Device, Via Natural or Artificial Opening Endoscopic (ICD-10-PCS; 2021-12-24)
PROC: 0TBB8ZX Excision of Bladder, Via Natural or Artificial Opening Endoscopic, Diagnostic (ICD-10-PCS; principal; 2021-12-24 09:30)
PROC: 0TB68ZX Excision of Right Ureter, Via Natural or Artificial Opening Endoscopic, Diagnostic (ICD-10-PCS; 2021-12-24 09:30)
DX: C66.1 Malignant neoplasm of right ureter (principal); N13.30 Unspecified hydronephrosis; R10.9 Unspecified abdominal pain; J44.9 Chronic obstructive pulmonary disease, unspecified; E11.9 Type 2 diabetes mellitus without complications; E78.5 Hyperlipidemia, unspecified; E03.9 Hypothyroidism, unspecified; K21.9 Gastro-esophageal reflux disease without esophagitis; Z20.822 Contact with and (suspected) exposure to COVID-19; N32.9 Bladder disorder, unspecified
CPT/HCPCS: 52204; 52354; 52332; 87088 ×2; 87086 ×2; 82947 ×2; 88305; 87077 ×2; 87186 ×2; 74450; 51610; U0003; J2704; J2250; J3010; J7030; J2405; J0713; J0744